=== PATIENT | male | born 1960 | race Caucasian/White ===

== ENCOUNTER 2017-01-01 11:38 | Emergency (ER) | payer SELFPAY ==
[~2017-01-01] VITALS: Ht 180.3 cm; Wt 98.4 kg
[~2017-01-01 11:38] MED LIST: AMLO5TAB2 PO; ASPI325T11 PO; CARV6.25 PO; CITA40TA12 PO; CLOP75TA57 PO; CRESTOR40 MG PO; GABA-585 PO; GLIM2TAB PO; ISOS120T2 PO; ISOS60TA PO; LEVO150T PO; LIRA0.6P SQ; LISI-334 PO; MAGN400T22 PO; METF10002 PO; METO25TA4 PO; NITR0.4T SL; OMEG1CAP6 PO; OXYC5CAP PO; PANT40GR PO; RANO10002 PO; SIMV20TA3 PO
--- NOTE | 2017-01-01 12:41 | RAD ---
Indication: Left-sided weakness. Technique: Noncontrast CT head was obtained. Comparison is from January 15, 2016. One or more of the following individualized dose reduction techniques were utilized for this examination: 1. Automated exposure control 2. Adjustment of the mA and/or kV according to patient size 3. Use of iterative reconstruction technique Findings: The ventricles and sulci are within normal limits for age. There is no acute intracranial hemorrhage or extra-axial fluid collection. There is no mass effect or midline shift. Farfan-white differentiation is preserved. Orbital contents are unremarkable. The paranasal sinuses and mastoid air cells are clear. Calvarium is mottled. This is similar to prior. Impression: No acute intracranial findings.
--- NOTE | 2017-01-01 12:48 | EKG ---
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
[2017-01-01 12:49] LABS: BASO % 1 % (0-3); EOS # 0.1 x10^3/uL (0.0-0.7); EOS % 2 % (0-3); HEMOGLOBIN 14.7 g/dL (13.0-17.5); LYMPH # 1.6 x10^3/uL (1.0-4.8); LYMPH % 29 % (24-48); MEAN CORPUSCULAR HEMOGLOBIN 29 pg (25-35); MEAN CORPUSCULAR HGB CONC 33 g/dL (31-37); MEAN CORPUSCULAR VOLUME 87 fL (79-100); MONO # 0.5 x10^3/uL (0.0-1.1); MONO % 9 % (0-9); NEUT # 3.4 x10^3uL (1.8-7.7); NEUT % 61 % (31-73); PLATELET COUNT 220 x10^3/uL (140-400); RED BLOOD COUNT 5.06 x10^6/uL (4.30-5.70); RED CELL DISTRIBUTION WIDTH 14.6 % (11.5-14.5); WHITE BLOOD COUNT 5.7 x10^3/uL (4.0-11.0)
[2017-01-01 12:57] LABS: ALBUMIN 3.4 g/dL (3.4-5.0); CALCIUM 9.1 mg/dL (8.5-10.1); CREATININE 1.3 mg/dL (0.7-1.3); GFR 57.3; POTASSIUM 4.4 mmol/L (3.5-5.1); TOTAL BILIRUBIN 0.4 mg/dL (0.2-1.0); TOTAL PROTEIN 6.9 g/dL (6.4-8.2)
--- NOTE | 2017-01-01 13:42 | PHYS DOC ---
Past History Past Medical History: CAD, Diabetes, GERD, High Cholesterol, Hypertension, Kidney Stones, Migraines, TIA, Other Past Surgical History: Other Smoking: Non-smoker Alcohol Use: Occasionally Drug Use: None Adult General Chief Complaint Chief Complaint: balance problem HPI HPI Patient is a 56-year-old male brought to the ED by family members with a complaint of balance problems since he woke up this morning at about 10:00. Patient states that he got home from work last night at about 11. He felt fine. He went to bed and went to sleep. At about 3 AM, he woke up with a bad headache. He went and took 3 ibuprofen. At that time he recalls feeling that may be his balance was off, felt like he maybe had some trouble walking. He was very tired and had a headache so he just took the ibuprofen and went back to bed. He woke up at about 10:00 this morning and said that his headache was gone but when he came into the kitchen he was stumbling, he was very off balance, he was having a hard time walking, according to his . He describes his symptoms as "stumbling" and feels like his "coordination is off". Patient had a TIA in the past but has never had a stroke. Patient takes aspirin 325 and also Plavix daily. He did take them today. PCP Dr. Dickey, who recently retired, see someone else in the office. He sees cardiology at [facility] cardiology. Review of Systems Review of Systems Constitutional: Denies fever or chills [] Eyes: Denies change in visual acuity, redness, or eye pain [] HENT: Denies nasal congestion or sore throat [] Respiratory: Denies cough or shortness of breath [] Cardiovascular: Denies chest pain GI: Denies abdominal pain, nausea, vomiting, bloody stools or diarrhea [] : Denies dysuria or hematuria [] Musculoskeletal: Denies back pain or joint pain [] Integument: Denies rash or skin lesions [] Neurologic: As in history of present illness Current Medications Current Medications Current Medications Medications (Trade) Dose Ordered Sig/Manuel Start Time Stop Time Status Last Admin Dose Admin Acetaminophen (Tylenol) 1,000 mg 1X ONCE 01/01/17 14:00 01/01/17 14:01 Allergies Allergies Allergies Coded Allergies Type Severity Reaction Last Updated Verified No Known Drug Allergies 01/21/14 No Physical Exam Physical Exam Constitutional: Well developed, well nourished, no acute distress, non-toxic appearance. Alert, mentating normally, normal speech. HENT: Normocephalic, atraumatic, bilateral external ears normal, oropharynx moist, no oral exudates, nose normal. [] Eyes: PERRLA, EOMI, conjunctiva normal, no discharge. [] Neck: Normal range of motion, no stridor. [] Cardiovascular:Heart rate regular rhythm, no murmur [] Lungs & Thorax: Bilateral breath sounds clear to auscultation [] Abdomen: Bowel sounds normal, soft, no tenderness, no masses, no pulsatile masses. [] Skin: Warm, dry, no erythema, no rash. [] Extremities: No tenderness, no cyanosis, no clubbing, ROM intact, no edema. [] Neurologic: Alert and oriented X 3, normal speech, no pronator drift of upper extremities, right leg is weak, he is able to very briefly, slightly lift it off the bed but not hold it up for 5 seconds. There is slight ataxia with finger -to-nose nose on the right, normal on the left. Left upper and lower extremity strength is normal. Psychologic: Affect normal, judgement normal, mood normal. [] Current Patient Data Lab Results Laboratory Tests Test 01/01/17 11:58 White Blood Count 5.7 x10^3/uL (4.0-11.0) Red Blood Count 5.06 x10^6/uL (4.30-5.70) Hemoglobin 14.7 g/dL (13.0-17.5) Hematocrit 44.0 % (39.0-53.0) Mean Corpuscular Volume 87 fL (79-100) Mean Corpuscular Hemoglobin 29 pg (25-35) Mean Corpuscular Hemoglobin Concent 33 g/dL (31-37) Red Cell Distribution Width 14.6 % (11.5-14.5) H Platelet Count 220 x10^3/uL (140-400) Neutrophils (%) (Auto) 61 % (31-73) Lymphocytes (%) (Auto) 29 % (24-48) Monocytes (%) (Auto) 9 % (0-9) Eosinophils (%) (Auto) 2 % (0-3) Basophils (%) (Auto) 1 % (0-3) Neutrophils # (Auto) 3.4 x10^3uL (1.8-7.7) Lymphocytes # (Auto) 1.6 x10^3/uL (1.0-4.8) Monocytes # (Auto) 0.5 x10^3/uL (0.0-1.1) Eosinophils # (Auto) 0.1 x10^3/uL (0.0-0.7) Basophils # (Auto) 0.0 x10^3/uL (0.0-0.2) Prothrombin Time 9.9 SEC (9.4-11.4) Prothrombin Time INR 1.0 (0.9-1.1) PTT 26 SEC (23-33) Sodium Level 135 mmol/L (136-145) L Potassium Level 4.4 mmol/L (3.5-5.1) Chloride Level 98 mmol/L (98-107) Carbon Dioxide Level 28 mmol/L (21-32) Anion Gap 9 (6-14) Blood Urea Nitrogen 15 mg/dL (8-26) Creatinine 1.3 mg/dL (0.7-1.3) Estimated GFR (Cockcroft-Gault) 57.3 BUN/Creatinine Ratio 12 (6-20) Glucose Level 308 mg/dL (70-99) H Calcium Level 9.1 mg/dL (8.5-10.1) Total Bilirubin 0.4 mg/dL (0.2-1.0) Aspartate Amino Transferase (AST) 12 U/L (15-37) L Alanine Aminotransferase (ALT) 21 U/L (16-63) Alkaline Phosphatase 117 U/L (46-116) H Troponin I Quantitative < 0.017 ng/mL (0-0.055) Total Protein 6.9 g/dL (6.4-8.2) Albumin 3.4 g/dL (3.4-5.0) Albumin/Globulin Ratio 1.0 (1.0-1.7) EKG EKG 12-lead EKG read by me. Sinus rhythm. Heart rate 59. There are no acute ST or T wave changes indicative of ischemia or infarction. No rhythm disturbance. No STEMI. 1250 [] Radiology/Procedures Radiology/Procedures CT scan of the head read by the radiologist. No acute findings. [] Course & Med Decision Making Course & Med Decision Making Pertinent Labs and Imaging studies reviewed. (See chart for details) 56-year-old man with a history of a TIA presents after waking up at 10:00 with right side of the body weakness and ataxia. I discussed with him and family that we will get some labs, EKG, CT scan, they're agreeable to that. CT scan negative for acute finding, consistent with acute CVA occurring by history before 10 AM. 1345 recheck of patient. He states his symptoms are unchanged. His right leg weakness is unchanged on exam. He remains alert, normal speech, mentating normally. He says he does have a little headache and would like something for it. I discussed the diagnosis of CVA with the patient and family and recommended hospitalization. They're agreeable to that. I discussed the case with Dr. Krishna, hospital medicine at [facility]. He will accept the patient in transfer. I completed transfer paperwork and the patient will be transferred via EMS to [place]. The patient is not a candidate for TPA or any other acute intervention, because the onset of symptoms is unknown. The patient woke up at 10:00 with his symptoms present. By history, they may have started as early as 3 AM, see history of present illness. I discussed with the patient and his family the fact that he is not a candidate for TPA or other thrombolytic intervention because of the uncertain time frame, they understand. [] Dragon Disclaimer Dragon Disclaimer This chart was dictated in whole or in part using Voice Recognition software in a busy, high-work load, and often noisy Emergency Department environment. It may contain unintended and wholly unrecognized errors or omissions. Departure Departure: Impression: Primary Impression: CVA (cerebral vascular accident) Disposition: 02 XFER SHT-TRM HOSP Condition: STABLE Referrals: JUDSON DICKEY MD (PCP) MICHAEL CHACKO MD January 01, 2017 13:42
[2017-01-01] MEDS ORDERED: ACETAMINOPHEN 500 MG TABLET PO ONE (14:00)
[2017-01-01 14:34] LABS: AMPHETAMINE/METHAMPHETAMINE NEG (NEG); BARBITURATES NEG (NEG); BENZODIAZEPINES NEG (NEG); CANNABINOIDS NEG (NEG); COCAINE NEG (NEG); METHADONE NEG (NEG); OPIATES NEG (NEG); PHENCYCLIDINE NEG (NEG)
[2017-01-01 14:35] LABS: BACTERIA,URINE 0 /HPF (0-FEW); BILIRUBIN,URINE NEG (NEG); CLARITY,URINE CLEAR; COLOR,URINE YELLOW; GLUCOSE,URINE >=1000 mg/dL (NEG); NITRITE,URINE NEG (NEG); RBC,URINE 0 /HPF (0-2); UROBILINOGEN,URINE 0.2 mg/dL (0.2 mg/dL); WBC,URINE 0 /HPF (0-4)
[2017-01-01 15:27] VITALS: BP 151/71
== END 2017-01-01 15:57 | disposition short-term general hospital (02) ==
LOC: ER 11:38
DX: I63.9 Cerebral infarction, unspecified (principal); I10 Essential (primary) hypertension; K21.9 Gastro-esophageal reflux disease without esophagitis; I25.10 Atherosclerotic heart disease of native coronary artery without angina pectoris; E78.00 Pure hypercholesterolemia, unspecified; E11.9 Type 2 diabetes mellitus without complications; Z86.73 Personal history of transient ischemic attack (TIA), and cerebral infarction without residual deficits; Z87.442 Personal history of urinary calculi
CPT/HCPCS: 36415; 70450; 80053; 80305; 81001; 84484; 85027; 85610; 85730; 93005; G0481; 99285-25

== ENCOUNTER 2017-05-02 17:11 | Emergency (ER) | payer BC ==
[~2017-05-02] VITALS: Ht 180.3 cm; Wt 99.8 kg
--- NOTE | 2017-05-02 18:04 | RAD ---
CT Head W/O Contrast: History: Right side mouth and facial droop.Left side weakness.dizziness 10 hrs CODE STROKE [id number], Comparison: January 25, 2016 Axial images were obtained without contrast. The basurto and white matter appears normal and symmetrical for the patients age. There is no mass effect, extraaxial fluid collections or hydrocephalus. There is no gross bleed. There is old lacunar infarcts in the left basal ganglia and chavez radiata. There is no focal loss of basurto-white matter distinction to suggest acute ischemia, i.e. stroke. Impression: Old lacunar infarcts on the left were not present previously. No acute findings. These results were called to the emergency room at the time of dictation. PQRS Compliance Statement: One or more of the following individualized dose reduction techniques were utilized for this examination: 1. Automated exposure control 2. Adjustment of the mA and/or kV according to patient size 3. Use of iterative reconstruction technique Electronically signed by: Prashant Wilburn III, MD (05/02/2017 6:01 PM) [facility]
[2017-05-02 18:44] LABS: BASO % 0 % (0-3); EOS # 0.1 x10^3/uL (0.0-0.7); EOS % 1 % (0-3); HEMATOCRIT 42.8 % (39.0-53.0); HEMOGLOBIN 14.8 g/dL (13.0-17.5); LYMPH # 1.9 x10^3/uL (1.0-4.8); LYMPH % 24 % (24-48); MEAN CORPUSCULAR HEMOGLOBIN 31 pg (25-35); MEAN CORPUSCULAR HGB CONC 35 g/dL (31-37); MEAN CORPUSCULAR VOLUME 89 fL (79-100); MONO # 0.7 x10^3/uL (0.0-1.1); MONO % 8 % (0-9); NEUT # 5.5 x10^3uL (1.8-7.7); NEUT % 67 % (31-73); PLATELET COUNT 263 x10^3/uL (140-400); RED CELL DISTRIBUTION WIDTH 13.8 % (11.5-14.5); WHITE BLOOD COUNT 8.2 x10^3/uL (4.0-11.0)
[2017-05-02 18:59] LABS: ALBUMIN 3.6 g/dL (3.4-5.0); CALCIUM 9.2 mg/dL (8.5-10.1); CREATININE 1.2 mg/dL (0.7-1.3); GFR 62.6; POTASSIUM 4.5 mmol/L (3.5-5.1); TOTAL BILIRUBIN 0.4 mg/dL (0.2-1.0); TOTAL PROTEIN 7.3 g/dL (6.4-8.2)
[2017-05-02] MEDS ORDERED: IV NORMAL SALINE 1,000ML 1,000 ML IV SCH (19:12)
[2017-05-02 19:13] LABS: AMPHETAMINE/METHAMPHETAMINE NEG (NEG); BARBITURATES NEG (NEG); BENZODIAZEPINES NEG (NEG); CANNABINOIDS NEG (NEG); COCAINE NEG (NEG); METHADONE NEG (NEG); OPIATES NEG (NEG); PHENCYCLIDINE NEG (NEG)
[2017-05-02] MEDS ORDERED: fentaNYL PF 100 MCG/2 ML VIAL IV ONE (19:30)
[2017-05-02 19:40] LABS: BACTERIA,URINE 0 /HPF (0-FEW); BILIRUBIN,URINE NEG (NEG); CLARITY,URINE CLEAR; COLOR,URINE YELLOW; GLUCOSE,URINE NEG (NEG); NITRITE,URINE NEG (NEG); SQUAMOUS EPITHELIAL CELL,UR FEW /LPF; UROBILINOGEN,URINE 0.2 mg/dL (0.2 mg/dL)
[2017-05-02 20:13] LABS: SEDIMENTATION RATE 15 (0-15)
[2017-05-02 20:17] VITALS: BP 130/74
--- NOTE | 2017-05-02 20:27 | PHYS DOC ---
General Chief Complaint: HEADACHE Stated Complaint: HEADACHE Time Seen by MD: 18:05 Source: patient Exam Limitations: no limitations Problems: History of Present Illness Initial Comments Patient is a 57-year-old male brought to the ED by family for stroke symptoms. Patient states that since 6:30 this morning he noticed left temporal headache and left-sided facial tingling. He states he had concomitant right arm and leg weakness, patient's family says that the patient's favorite his right leg and left for the past 3 days. Patient has history of CVA in the past last was December 2016. Patient follows with [facility] neurologist Dr. Jones. Patient also follows with today Nancy for cardiology PCP is Dr. Orantes. Patient takes Plavix, he states his right sided weakness symptoms have resolved. Patient states that he has some residual right upper extremity weakness from prior stroke however it is not evident on exam in the emergency department. Stroke scale is negative. ED vitals: 98.3, 72, 16, 165/100, 98% room air Timing/Duration: other (6:30 AM today getting better) Severity: mild Modifying Factors: improves with other Associated Symptoms: headaches, weakness Allergies: Coded Allergies: No Known Drug Allergies (Unverified , 01/21/14) Past Medical History Medical History: other (CVA, TIA, coronary artery disease, hyperlipidemia, diabetes, hypertension) Surgical History: noncontributory, angioplasty Family History Significant Family History: no pertinent family hx Social History Smoker: cigarettes Alcohol: none Drugs: none Review of Systems Constitutional: denies chills, denies diaphoresis, denies fever, denies malaise EENTM: denies eye pain, denies blurred vision, denies ear pain, denies ear discharge, denies nose pain, denies nose congestion, denies throat pain, denies mouth pain Respiratory: denies cough, denies shortness of breath Cardiovascular: denies chest pain, denies palpitations Gastrointestinal: denies abdominal pain, denies nausea, denies vomiting Musculoskeletal: denies back pain, denies joint swelling, denies neck pain Psychiatric/Neurological: see HPI Hematologic/Lymphatic: see HPI Physical Exam General Appearance: no apparent distress, obese Eyes: bilateral eye normal inspection, bilateral eye PERRL, bilateral eye EOMI Ear, Nose, Throat: hearing grossly normal, normal ENT inspection, normal pharynx Neck: non-tender, supple Respiratory: lungs clear, normal breath sounds Cardiovascular: normal peripheral pulses, regular rate, rhythm Gastrointestinal: non tender, soft Back: no CVA tenderness, no vertebral tenderness Extremities: non-tender, normal inspection Neurologic/Psychiatric: no motor/sensory deficits, alert, normal mood/affect, oriented x 3, other (perceived decreased sensory left temporal otherwise neuro exam normal) Skin: normal color, warm/dry Orders, Labs, Meds EKG: Normal sinus rhythm 68 bpm, nonspecific ST-T T changes with contour abnormality no STEMI. Interpreted by Dr. Davison. PATIENT: MANUEL MCNEAL ACCOUNT: [id number] : 1960 LOCATION: ER AGE: 57 SEX: M EXAM STATUS: REG ER ORD. PHYSICIAN: BRADFORD REASON: RIGHT FACIAL DROOPING, LEFT UPPER EXT. WEAKNESS PROCEDURE: CT CODE STROKE HEAD WO CT Head W/O Contrast: History: Right side mouth and facial droop.Left side weakness.dizziness 10 hrs CODE STROKE [id number], Comparison: January 25, 2016 Axial images were obtained without contrast. The basurto and white matter appears normal and symmetrical for the patients age. There is no mass effect, extraaxial fluid collections or hydrocephalus. There is no gross bleed. There is old lacunar infarcts in the left basal ganglia and chavez radiata. There is no focal loss of basurto-white matter distinction to suggest acute ischemia, i.e. stroke. Impression: Old lacunar infarcts on the left were not present previously. No acute findings. These results were called to the emergency room at the time of dictation. PQRS Compliance Statement: One or more of the following individualized dose reduction techniques were utilized for this examination: 1. Automated exposure control 2. Adjustment of the mA and/or kV according to patient size 3. Use of iterative reconstruction technique Electronically signed by: Ezekiel Jain III, MD (05/02/2017 6:01 PM) [facility] DICTATED AND SIGNED BY: EZEKIEL JAIN III, MD DATE: 05/02/17 7495 CC: ALEXANDER; TREY ORANTES MD; AYESHA DAVISON DO ~ D-dimer 0.69 otherwise reassuring labs and urine studies. 2015: Other than the altered sensation of the left temporal patient states his symptoms have completely resolved. He denies any complaints and is requesting discharge home. 2023: I did contact Dr. Pelaez converter skimmer for neurology to discuss the patient. He recommended discharge home and follow-up with Dr. Jones in 1-2 days, return to ED if symptoms return. I discussed this with the patient and he is greatly relieved as he was intending to sign out AMA discharge was recommended. I discussed smoking cessation as well as the treatment plan and close outpatient neurology follow-up patient and family are agreeable. Departure Time of Disposition: 20:25 Disposition: HOME, SELF-CARE Diagnosis: cephalgia, h/o CVA, tobaccoism Condition: IMPROVED Patient Instructions: General Headache Without Cause, [id number], Smokeless Tobacco Use, Transient Ischemic Attack, [id number] Additional Instructions: Stop smoking seek medical assistance if necessary. No driving or operating machinery until follow-up with your doctor. Continue current medications. Follow-up with your neurologist in 1-2 days for recheck. Call tomorrow to schedule next available appointment. Return to the ED with new or changing symptoms. AYESHA DAVISON DO May 02, 2017 20:27
--- NOTE | 2017-05-02 22:11 | EKG ---
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
--- NOTE | 2017-05-03 07:46 | RAD ---
Portable chest, 05/02/2017: History: High blood pressure, weakness Comparison is made to a study from 01/15/2016. The heart size and pulmonary vascularity are normal. No pulmonary infiltrates are seen. There is no evidence of pleural fluid. IMPRESSION: No acute cardiopulmonary abnormality is detected.
== END 2017-05-02 20:40 | disposition home or self-care (01) ==
LOC: ER 17:11
DX: R51 Headache (principal); I25.10 Atherosclerotic heart disease of native coronary artery without angina pectoris; E78.5 Hyperlipidemia, unspecified; E11.9 Type 2 diabetes mellitus without complications; I10 Essential (primary) hypertension; F17.210 Nicotine dependence, cigarettes, uncomplicated; Z98.61 Coronary angioplasty status; Z86.73 Personal history of transient ischemic attack (TIA), and cerebral infarction without residual deficits
CPT/HCPCS: 36415; 70450; 71010; 80053; 80307; 81001; 82550; 83605; 83880; 84484; 85025; 85379; 85610; 85651; 85730; 93005; 96361; 96374; 99285; J3010; G0479; J7030

== ENCOUNTER 2017-09-21 16:37 | Emergency (ER) | payer BC ==
--- NOTE | 2017-09-21 17:11 | EKG ---
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
[2017-09-21] MEDS ORDERED: IV NORMAL SALINE 1,000ML 1,000 ML IV SCH (17:18)
[2017-09-21 17:28] LABS: BASO % 1 % (0-3); EOS # 0.1 x10^3/uL (0.0-0.7); EOS % 2 % (0-3); HEMATOCRIT 40.5 % (39.0-53.0); HEMOGLOBIN 14.1 g/dL (13.0-17.5); LYMPH # 2.1 x10^3/uL (1.0-4.8); LYMPH % 30 % (24-48); MEAN CORPUSCULAR HEMOGLOBIN 30 pg (25-35); MEAN CORPUSCULAR HGB CONC 35 g/dL (31-37); MEAN CORPUSCULAR VOLUME 87 fL (79-100); MONO # 0.6 x10^3/uL (0.0-1.1); MONO % 8 % (0-9); NEUT # 4.3 x10^3uL (1.8-7.7); NEUT % 60 % (31-73); PLATELET COUNT 238 x10^3/uL (140-400); RED BLOOD COUNT 4.69 x10^6/uL (4.30-5.70); RED CELL DISTRIBUTION WIDTH 13.5 % (11.5-14.5); WHITE BLOOD COUNT 7.1 x10^3/uL (4.0-11.0)
[2017-09-21] MEDS ORDERED: ASPIRIN 81 MG TAB.CHEW PO ONE (17:45)
[2017-09-21 17:50] LABS: ALBUMIN 3.3 g/dL (3.4-5.0); ALBUMIN/GLOBULIN RATIO 0.9 (1.0-1.7); CALCIUM 8.8 mg/dL (8.5-10.1); CREATININE 1.2 mg/dL (0.7-1.3); GFR 62.6; MAGNESIUM 1.5 mg/dL (1.8-2.4); POTASSIUM 3.7 mmol/L (3.5-5.1); TOTAL BILIRUBIN 0.2 mg/dL (0.2-1.0); TOTAL PROTEIN 6.8 g/dL (6.4-8.2)
--- NOTE | 2017-09-21 18:05 | PHYS DOC ---
Past History Past Medical History: CAD, CVA, Diabetes, High Cholesterol, Hypertension, Hypothyroid, TIA Past Surgical History: Coronary Bypass Surgery, Other Smoking: Non-smoker Alcohol Use: None Drug Use: None Adult General Chief Complaint Chief Complaint: CHEST PAIN HPI HPI Patient is a 57 year old male who presents with complaint of chest pain. Patient states that his symptoms started approximately 30 minutes prior to arrival. The patient states that he has history coronary artery disease and was recently admitted at [facility] one week ago where he underwent cardiac catheterization and revision of a previous stent. The patient states that his pain is currently 7 out of 10. The patient states that he took 2 nitroglycerin which helped with his pain initially. Patient also took a full strength aspirin prior to arrival. Patient denies any recent fever. Patient states that the pain is left-sided and describes it as "gripping." Patient has had associated nausea and vomiting with his symptoms. Denies abdominal pain. Review of Systems Review of Systems Constitutional: Denies fever or chills [] Eyes: Denies change in visual acuity, redness, or eye pain [] HENT: Denies nasal congestion or sore throat [] Respiratory: Denies cough or shortness of breath [] Cardiovascular: No additional information not addressed in HPI [] GI: Denies abdominal pain, nausea, vomiting, bloody stools or diarrhea [] : Denies dysuria or hematuria [] Musculoskeletal: Denies back pain or joint pain [] Integument: Denies rash or skin lesions [] Neurologic: Denies headache, focal weakness or sensory changes [] Endocrine: Denies polyuria or polydipsia [] All other systems were reviewed and found to be within normal limits, except as documented in this note. Current Medications Current Medications Current Medications Medications (Trade) Dose Ordered Sig/Manuel Start Time Stop Time Status Last Admin Dose Admin Aspirin (Children'S Aspirin) 324 mg 1X ONCE 09/21/17 17:45 09/21/17 17:46 Fentanyl Citrate (Fentanyl 2ml Vial) 50 mcg PRN Q15MIN PRN 09/21/17 17:30 09/22/17 17:29 Sodium Chloride 1,000 ml @ 125 mls/hr Q8H 09/21/17 17:18 09/22/17 01:17 Allergies Allergies Allergies Coded Allergies Type Severity Reaction Last Updated Verified No Known Drug Allergies 01/21/14 No Physical Exam Physical Exam Constitutional: Alert, afebrile, appears in mild to moderate discomfort. [] HENT: Normocephalic, atraumatic, bilateral external ears normal, oropharynx moist, no oral exudates, nose normal. [] Eyes: PERRLA, EOMI, conjunctiva normal, no discharge. [] Neck: Normal range of motion, no tenderness, supple, no stridor. [] Cardiovascular:Heart rate regular rhythm, no murmur [] Lungs & Thorax: Bilateral breath sounds clear to auscultation [] Abdomen: Bowel sounds normal, soft, no tenderness, no masses, no pulsatile masses. [] Skin: Warm, dry, no erythema, no rash. [] Back: No tenderness, no CVA tenderness. [] Extremities: No tenderness, no cyanosis, no clubbing, ROM intact, no edema. [] Neurologic: Alert and oriented X 3, normal motor function, normal sensory function, no focal deficits noted. [] Current Patient Data Vital Signs Vital Signs Date Time Temp Pulse Resp B/P (MAP) Pulse Ox O2 Delivery O2 Flow Rate FiO2 09/21/17 16:37 97.9 64 12 99 Room Air Lab Results Laboratory Tests Test 09/21/17 16:53 White Blood Count 7.1 x10^3/uL Red Blood Count 4.69 x10^6/uL Hemoglobin 14.1 g/dL Hematocrit 40.5 % Mean Corpuscular Volume 87 fL Mean Corpuscular Hemoglobin 30 pg Mean Corpuscular Hemoglobin Concent 35 g/dL Red Cell Distribution Width 13.5 % Platelet Count 238 x10^3/uL Neutrophils (%) (Auto) 60 % Lymphocytes (%) (Auto) 30 % Monocytes (%) (Auto) 8 % Eosinophils (%) (Auto) 2 % Basophils (%) (Auto) 1 % Neutrophils # (Auto) 4.3 x10^3uL Lymphocytes # (Auto) 2.1 x10^3/uL Monocytes # (Auto) 0.6 x10^3/uL Eosinophils # (Auto) 0.1 x10^3/uL Basophils # (Auto) 0.0 x10^3/uL Sodium Level 138 mmol/L Potassium Level 3.7 mmol/L Chloride Level 101 mmol/L Carbon Dioxide Level 26 mmol/L Anion Gap 11 Blood Urea Nitrogen 20 mg/dL Creatinine 1.2 mg/dL Estimated GFR (Cockcroft-Gault) 62.6 BUN/Creatinine Ratio 17 Glucose Level 260 mg/dL Calcium Level 8.8 mg/dL Magnesium Level 1.5 mg/dL Total Bilirubin 0.2 mg/dL Aspartate Amino Transf (AST/SGOT) Pending Alanine Aminotransferase (ALT/SGPT) 25 U/L Alkaline Phosphatase 129 U/L Creatine Kinase 61 U/L Creatine Kinase MB (Mass) 1.0 ng/mL Creatine Kinase MB Relative Index 1.6 % Troponin I Quantitative 1.486 ng/mL VP-Yol-W-Type Natriuretic Peptide 178 pg/mL Total Protein 6.8 g/dL Albumin 3.3 g/dL Albumin/Globulin Ratio 0.9 Current Medications Medications (Trade) Dose Ordered Sig/Manuel Route PRN Reason Start Time Stop Time Status Last Admin Dose Admin Aspirin (Children'S Aspirin) 324 mg 1X ONCE PO 09/21/17 17:45 09/21/17 17:46 DC Fentanyl Citrate (Fentanyl 2ml Vial) 50 mcg PRN Q15MIN PRN IV PAIN GREATER THAN 3/10 09/21/17 17:30 09/22/17 17:29 09/21/17 17:41 Sodium Chloride 1,000 ml @ 125 mls/hr Q8H IV 09/21/17 17:18 09/22/17 01:17 09/21/17 17:39 EKG EKG Interpreted by me: Heart rate 70, sinus rhythm, left axis deviation, no acute ST /T-wave abnormalities present[] Radiology/Procedures Radiology/Procedures One view AP chest x-ray interpreted by me: No tracheal no effusion, normal cardiac silhouette[] Course & Med Decision Making Course & Med Decision Making Pertinent Labs and Imaging studies reviewed. (See chart for details) Patient was given IV fluids and fentanyl for treatment of symptoms. The patient was not given any further aspirin as he took a full strength aspirin prior to arrival. Patient's troponin was found to be elevated though this is likely decreasing from his previous elevated troponin level last week requiring cardiac catheterization. I contacted Dr. Scott of cardiology who recommended that the patient be transferred to [facility] for further evaluation and care. Awaiting call from hospitalist, care of patient signed over to Dr. Wahl at 1827. 1840: Dr. Rodriguez on-call hospitalist at [facility] accepted transfer to [facility] at 1835. Patient informed about plan of care and agreed with plan of transferring to [facility]. Patient stated his pain improved from 8 to 4 and doesn't want more pain medication Dragon Disclaimer Dragon Disclaimer This electronic medical record was generated, in whole or in part, using a voice recognition dictation system. Departure Departure: Impression: Primary Impression: Unstable angina Additional Impression: Coronary artery disease Disposition: XFER SHT-TRM HOSP (at 1835, transfer accepted to [facility] by Dr. Rodriguez) Condition: IMPROVED Referrals: TREY MATTSON MD (PCP) Problem Qualifiers Additional Impression: Coronary artery disease Coronary Disease-Associated Artery/Lesion type: [place] artery [place] vs. transplanted heart: [place] heart Associated angina: with unstable angina Qualified Codes: I25.110 - Atherosclerotic heart disease of [place] coronary artery with unstable angina pectoris SUJATA HOPKINS MD Sep 21, 2017 18:05 NEAL WAHL MD Sep 21, 2017 18:44
[2017-09-21 18:39] LABS: BACTERIA,URINE 0 /HPF (0-FEW); BILIRUBIN,URINE NEG (NEG); CLARITY,URINE CLEAR; COLOR,URINE YELLOW; GLUCOSE,URINE >=1000 mg/dL (NEG); NITRITE,URINE NEG (NEG); SQUAMOUS EPITHELIAL CELL,UR FEW /LPF; UROBILINOGEN,URINE 0.2 mg/dL (0.2 mg/dL); WBC,URINE OCC /HPF (0-4)
[2017-09-21 19:45] VITALS: BP 138/77
--- NOTE | 2017-09-22 07:57 | RAD ---
Portable chest, 09/21/2017: History: Chest pain Comparison is made to a study from 05/02/2017. The heart size and pulmonary vascularity are normal. There are calcified granulomata in the left upper lobe. There is minimal linear scarring or atelectasis in the left base laterally adjacent to a prominent epicardial fat pad. The lungs are otherwise clear. There is no evidence of pleural fluid. IMPRESSION: Minimal linear atelectasis or scarring in the left base.
== END 2017-09-21 19:50 | disposition short-term general hospital (02) ==
LOC: ER 16:37
DX: I25.110 Atherosclerotic heart disease of native coronary artery with unstable angina pectoris (principal); E03.9 Hypothyroidism, unspecified; E11.9 Type 2 diabetes mellitus without complications; E78.00 Pure hypercholesterolemia, unspecified; I10 Essential (primary) hypertension; Z86.73 Personal history of transient ischemic attack (TIA), and cerebral infarction without residual deficits; Z95.1 Presence of aortocoronary bypass graft
CPT/HCPCS: 36415; 71045; 80053; 81001; 82553; 83735; 83880; 84484; 85025; 85610; 85730; 93005; 96361; 96374; 96376; 99285; J3010; J7030

== ENCOUNTER → 2017-10-18 | Outpatient (CLI) | payer BC ==
[2017-09-21 19:45] VITALS: BP 138/77
== END | disposition home or self-care (01) ==
LOC: LAB 12:36
PROVIDERS: ATTEND Nurse Practitioner
DX: I25.10 Atherosclerotic heart disease of native coronary artery without angina pectoris (principal); F17.200 Nicotine dependence, unspecified, uncomplicated
CPT/HCPCS: 36415

== ENCOUNTER → 2017-12-26 | Outpatient (CLI) | payer BC ==
[~2017-12-26] MED LIST changes: -METF10002 PO; +METF10003 PO
[2017-12-26 11:35] LABS: CALCIUM 9.2 mg/dL (8.5-10.1); CREATININE 1.1 mg/dL (0.7-1.3); GFR 69.2; POTASSIUM 4.3 mmol/L (3.5-5.1)
[2017-12-26 11:40] LABS: BASO % 0 % (0-3); EOS # 0.1 x10^3/uL (0.0-0.7); EOS % 1 % (0-3); HEMATOCRIT 42.9 % (39.0-53.0); HEMOGLOBIN 14.3 g/dL (13.0-17.5); LYMPH # 1.6 x10^3/uL (1.0-4.8); LYMPH % 28 % (24-48); MEAN CORPUSCULAR HEMOGLOBIN 29 pg (25-35); MEAN CORPUSCULAR HGB CONC 33 g/dL (31-37); MEAN CORPUSCULAR VOLUME 87 fL (79-100); MONO # 0.5 x10^3/uL (0.0-1.1); MONO % 8 % (0-9); NEUT # 3.6 x10^3uL (1.8-7.7); NEUT % 62 % (31-73); PLATELET COUNT 229 x10^3/uL (140-400); RED BLOOD COUNT 4.95 x10^6/uL (4.30-5.70); RED CELL DISTRIBUTION WIDTH 14.6 % (11.5-14.5); WHITE BLOOD COUNT 5.8 x10^3/uL (4.0-11.0)
== END | disposition home or self-care (01) ==
LOC: LAB 10:27
PROVIDERS: ATTEND Internal Medicine Cardiovascular Disease
DX: I25.10 Atherosclerotic heart disease of native coronary artery without angina pectoris (principal); F17.200 Nicotine dependence, unspecified, uncomplicated
CPT/HCPCS: 36415; 80048; 85025; 85610

== ENCOUNTER 2018-01-10 14:34 | Emergency (ER) | payer BC ==
[~2018-01-10] VITALS: Ht 182.9 cm; Wt 95.3 kg
--- NOTE | 2018-01-10 14:48 | EKG ---
[address] [address] Test Date: 2018-01-10 Test Time: 14:36:48 Pat Name: MANUEL MCNEAL Department: Room: Gender: M Dentist: PAUL : 1960 Requested By: RUI WILLIAM Order Number: [id number] Reading MD: Measurements Intervals [place] Rate: 66 P: 45 DC: 166 QRS: -48 QRSD: 88 T: 37 QT: 380 QTc: 400 Interpretive Statements SINUS RHYTHM ABNORMAL LEFT AXIS DEVIATION QRS(T) CONTOUR ABNORMALITY CONSISTENT WITH INFERIOR INFARCT PROBABLY OLD ABNORMAL ECG RI6.01 No previous ECG available for comparison
[2018-01-10 15:22] LABS: BASO % 0 % (0-3); EOS # 0.1 x10^3/uL (0.0-0.7); EOS % 2 % (0-3); HEMATOCRIT 41.8 % (39.0-53.0); HEMOGLOBIN 14.3 g/dL (13.0-17.5); LYMPH # 1.9 x10^3/uL (1.0-4.8); LYMPH % 29 % (24-48); MEAN CORPUSCULAR HEMOGLOBIN 29 pg (25-35); MEAN CORPUSCULAR HGB CONC 34 g/dL (31-37); MEAN CORPUSCULAR VOLUME 86 fL (79-100); MONO # 0.7 x10^3/uL (0.0-1.1); MONO % 10 % (0-9); NEUT % 59 % (31-73); PLATELET COUNT 218 x10^3/uL (140-400); RED BLOOD COUNT 4.86 x10^6/uL (4.30-5.70); RED CELL DISTRIBUTION WIDTH 14.4 % (11.5-14.5); WHITE BLOOD COUNT 6.7 x10^3/uL (4.0-11.0)
--- NOTE | 2018-01-10 15:24 | RAD ---
Chest, 2 views, 01/10/2018: HISTORY: Chest pain, angina Comparison is made to a study from 09/21/2017. The heart size and pulmonary vascularity are normal. A coronary artery stent and/or calcifications is projected over the left side of the heart. There are granulomatous calcifications in left upper lobe. There is minimal scarring in the left base. No acute infiltrate is seen. There is no evidence of pleural fluid. Moderate hypertrophic spurring is present in the spine. IMPRESSION: 1. Coronary artery disease. 2. No acute abnormality is detected. Electronically signed by: Brendon Quintanilla MD (01/10/2018 3:21 PM) [facility]
[2018-01-10 15:33] LABS: ALBUMIN 3.5 g/dL (3.4-5.0); CALCIUM 9.1 mg/dL (8.5-10.1); CREATININE 1.3 mg/dL (0.7-1.3); GFR 57.1; POTASSIUM 4.8 mmol/L (3.5-5.1); TOTAL BILIRUBIN 0.2 mg/dL (0.2-1.0); TOTAL PROTEIN 6.9 g/dL (6.4-8.2)
--- NOTE | 2018-01-10 15:59 | PHYS DOC ---
Past History Past Medical History: CAD, CVA, Diabetes, Hypothyroid Past Surgical History: Other Smoking: Non-smoker Alcohol Use: None Drug Use: None Adult General Chief Complaint Chief Complaint: CHEST PAIN [facility] 57-year-old male male presents with chest pain one half hours prior to arrival. The patient is a heavy pressure 8 out of 10. He now has pain is 6 out of 10. The patient took 4 nitros at home without relief. He has a history of coronary disease. He has had 7 stents in the past. He recently had a cardiac catheter one week ago. They found 2 vessels that could not be stented. He was also recently hospitalized with blood pressure hours of 200s over 100s. He denies fever or chills. He does have shortness of breath and nausea. No diaphoresis. Review of Systems Review of Systems Constitutional: Denies fever or chills [] Eyes: Denies change in visual acuity, redness, or eye pain [] HENT: Denies nasal congestion or sore throat [] Respiratory: shortness of breath [] Cardiovascular: No additional information not addressed in HPI [] GI: Denies abdominal pain, nausea, vomiting, bloody stools or diarrhea [] : Denies dysuria or hematuria [] Musculoskeletal: Denies back pain or joint pain [] Integument: Denies rash or skin lesions [] Neurologic: Denies headache, focal weakness or sensory changes [] Endocrine: Denies polyuria or polydipsia [] All other systems were reviewed and found to be within normal limits, except as documented in this note. Allergies Allergies Allergies Coded Allergies Type Severity Reaction Last Updated Verified No Known Drug Allergies 09/21/17 No Physical Exam Physical Exam Constitutional: Well developed, well nourished, no acute distress, non-toxic appearance. [] HENT: Normocephalic, atraumatic, bilateral external ears normal, oropharynx moist, no oral exudates, nose normal. [] Eyes: PERRLA, EOMI, conjunctiva normal, no discharge. [] Neck: Normal range of motion, no tenderness, supple, no stridor. [] Cardiovascular:Heart rate regular rhythm, no murmur [] Lungs & Thorax: Bilateral breath sounds clear to auscultation [] Abdomen: Bowel sounds normal, soft, no tenderness, no masses, no pulsatile masses. [] Skin: Warm, dry, no erythema, no rash. [] Back: No tenderness, no CVA tenderness. [] Extremities: No tenderness, no cyanosis, no clubbing, ROM intact, no edema. [] Neurologic: Alert and oriented X 3, normal motor function, normal sensory function, no focal deficits noted. [] Psychologic: Affect normal, judgement normal, mood normal. [] Current Patient Data Vital Signs Vital Signs Date Time Temp Pulse Resp B/P (MAP) Pulse Ox O2 Delivery O2 Flow Rate FiO2 01/10/18 15:44 71 16 143/85 (104) 98 Room Air 01/10/18 14:50 98.1 Lab Results Laboratory Tests Test 01/10/18 15:09 White Blood Count 6.7 x10^3/uL (4.0-11.0) Red Blood Count 4.86 x10^6/uL (4.30-5.70) Hemoglobin 14.3 g/dL (13.0-17.5) Hematocrit 41.8 % (39.0-53.0) Mean Corpuscular Volume 86 fL (79-100) Mean Corpuscular Hemoglobin 29 pg (25-35) Mean Corpuscular Hemoglobin Concent 34 g/dL (31-37) Red Cell Distribution Width 14.4 % (11.5-14.5) Platelet Count 218 x10^3/uL (140-400) Neutrophils (%) (Auto) 59 % (31-73) Lymphocytes (%) (Auto) 29 % (24-48) Monocytes (%) (Auto) 10 % (0-9) H Eosinophils (%) (Auto) 2 % (0-3) Basophils (%) (Auto) 0 % (0-3) Neutrophils # (Auto) 4.0 x10^3uL (1.8-7.7) Lymphocytes # (Auto) 1.9 x10^3/uL (1.0-4.8) Monocytes # (Auto) 0.7 x10^3/uL (0.0-1.1) Eosinophils # (Auto) 0.1 x10^3/uL (0.0-0.7) Basophils # (Auto) 0.0 x10^3/uL (0.0-0.2) Sodium Level 139 mmol/L (136-145) Potassium Level 4.8 mmol/L (3.5-5.1) Chloride Level 104 mmol/L (98-107) Carbon Dioxide Level 27 mmol/L (21-32) Anion Gap 8 (6-14) Blood Urea Nitrogen 22 mg/dL (8-26) Creatinine 1.3 mg/dL (0.7-1.3) Estimated GFR (Cockcroft-Gault) 57.1 BUN/Creatinine Ratio 17 (6-20) Glucose Level 197 mg/dL (70-99) H Calcium Level 9.1 mg/dL (8.5-10.1) Total Bilirubin 0.2 mg/dL (0.2-1.0) Aspartate Amino Transferase (AST) 20 U/L (15-37) Alanine Aminotransferase (ALT) 39 U/L (16-63) Alkaline Phosphatase 145 U/L (46-116) H Troponin I Quantitative < 0.017 ng/mL (0-0.055) Total Protein 6.9 g/dL (6.4-8.2) Albumin 3.5 g/dL (3.4-5.0) Albumin/Globulin Ratio 1.0 (1.0-1.7) EKG EKG Normal sinus rhythm, rate 66, left axis, no ST elevation or depression. Q waves in lead 3 and aVF[] Radiology/Procedures Radiology/Procedures Chest, 2 views, 01/10/2018: HISTORY: Chest pain, angina Comparison is made to a study from 09/21/2017. The heart size and pulmonary vascularity are normal. A coronary artery stent and/or calcifications is projected over the left side of the heart. There are granulomatous calcifications in left upper lobe. There is minimal scarring in the left base. No acute infiltrate is seen. There is no evidence of pleural fluid. Moderate hypertrophic spurring is present in the spine. IMPRESSION: 1. Coronary artery disease. 2. No acute abnormality is detected. Electronically signed by: Brendon Quintanilla MD (01/10/2018 3:21 PM) [facility] CT chest angiogram with intravenous contrast History: Hypertension. Chest pain. Evaluate for dissection. Comparison: CT chest September 22, 2017. Technique: CT angiogram of the chest with attention to the aorta was performed after the administration of intravenous contrast, 75 mL Omnipaque-300. Axial 2-D reconstructions were obtained. Rotating 3-D MIPS were obtained of the chest. Exposure: One or more of the following individualized dose reduction techniques were utilized for this examination: 1. Automated exposure control 2. Adjustment of the mA and/or kV according to patient size 3. Use of iterative reconstruction technique Findings: There is no evidence of aortic dissection. Thoracic aorta has normal caliber. Calcified and noncalcified aortic atherosclerosis is seen. Trachea and mainstem bronchi appear patent. Visualized thyroid appears small, but symmetric. No acute airspace disease is identified. No pneumothorax or pleural effusion is seen. Pulmonary arterial system cannot be assessed as opacification was optimized for the aorta. No mediastinal lymphadenopathy is seen. Heart and pericardium are unremarkable. Coronary artery calcifications are present. Irregular soft tissue pulmonary nodule measuring 7 mm is seen in the right lower lobe (axial image 180). Images of the abdomen demonstrate mild thickening of both adrenal glands, similar to previous study. Impression: 1. No evidence of thoracic aortic aneurysm or dissection. No acute abnormality identified in the chest. 2. 7 mm irregular soft tissue pulmonary nodule in the right lower lobe, unchanged from comparison study. By Fleischner 2017 guidelines, recommend a follow-up chest CT in 6-12 months. Electronically signed by: Ej Clifford MD (01/10/2018 5:20 PM) [facility] [] Course & Med Decision Making Course & Med Decision Making Pertinent Labs and Imaging studies reviewed. (See chart for details) Vision chest x-ray is negative. His labs are negative his troponin is negative. His EKG does not show any elevation or acute findings. Given the patient's history of high blood pressure coupled with his coronary artery disease, I'm concerned for aortic dissection. His pain has not been amenable to nitroglycerin either and it usually works for him. CTA is ordered. CTA is negative for dissection. There is a soft tissue pulmonary nodule that they recommend having follow-up for. It is stable since previous study. The patient's work-up and recent testing are reassuring. His pain is improved at this time. I believe he is stable for discharge. 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 [] Dragon Disclaimer Dragon Disclaimer This electronic medical record was generated, in whole or in part, using a voice recognition dictation system. Departure Departure: Referrals: TREY MATTSON MD (PCP) RUI WILLIAM DO January 10, 2018 15:59
[2018-01-10] MEDS ORDERED: IOHEXOL 300 MG/ML 75 ML VIAL. IV ONE (16:30)
--- NOTE | 2018-01-10 17:24 | RAD ---
CT chest angiogram with intravenous contrast History: Hypertension. Chest pain. Evaluate for dissection. Comparison: CT chest September 22, 2017. Technique: CT angiogram of the chest with attention to the aorta was performed after the administration of intravenous contrast, 75 mL Omnipaque-300. Axial 2-D reconstructions were obtained. Rotating 3-D MIPS were obtained of the chest. Exposure: One or more of the following individualized dose reduction techniques were utilized for this examination: 1. Automated exposure control 2. Adjustment of the mA and/or kV according to patient size 3. Use of iterative reconstruction technique Findings: There is no evidence of aortic dissection. Thoracic aorta has normal caliber. Calcified and noncalcified aortic atherosclerosis is seen. Trachea and mainstem bronchi appear patent. Visualized thyroid appears small, but symmetric. No acute airspace disease is identified. No pneumothorax or pleural effusion is seen. Pulmonary arterial system cannot be assessed as opacification was optimized for the aorta. No mediastinal lymphadenopathy is seen. Heart and pericardium are unremarkable. Coronary artery calcifications are present. Irregular soft tissue pulmonary nodule measuring 7 mm is seen in the right lower lobe (axial image 180). Images of the abdomen demonstrate mild thickening of both adrenal glands, similar to previous study. Impression: 1. No evidence of thoracic aortic aneurysm or dissection. No acute abnormality identified in the chest. 2. 7 mm irregular soft tissue pulmonary nodule in the right lower lobe, unchanged from comparison study. By Fleischner 2017 guidelines, recommend a follow-up chest CT in 6-12 months. Electronically signed by: Ej Clifford MD (01/10/2018 5:20 PM) [facility]
[2018-01-10 17:51] VITALS: BP 128/60
== END 2018-01-10 17:58 | disposition home or self-care (01) ==
LOC: ER 14:34
DX: R07.89 Other chest pain (principal); R06.02 Shortness of breath; R11.0 Nausea; I25.10 Atherosclerotic heart disease of native coronary artery without angina pectoris; E11.9 Type 2 diabetes mellitus without complications; E03.9 Hypothyroidism, unspecified; Z86.73 Personal history of transient ischemic attack (TIA), and cerebral infarction without residual deficits
CPT/HCPCS: 36415; 71046; 71275; 80053; 84484; 85025; 93005; 99285; Q9967

== ENCOUNTER → 2018-01-19 | Outpatient (CLI) | payer BC ==
[2018-01-10 17:51] VITALS: BP 128/60
--- NOTE | 2018-01-19 09:09 | RAD ---
Renal ultrasound with deep Doppler evaluation, 01/19/2018: HISTORY: Hypertension The right kidney measures 11.7 cm in length while the left kidney measures 11.6 cm. A 1 cm simple cyst is noted in the mid right kidney. A single tiny right renal parenchymal calcification is noted. There is minimal renal cortical scarring bilaterally. There is no evidence of hydronephrosis. Duplex evaluation of the main renal arteries was performed including grayscale, color-flow and spectral Doppler analysis. The peak systolic velocity in the right renal artery is 115 cm/s with a renal artery to aortic velocity ratio of 2.3. On the left the peak systolic velocity in the renal artery is 150 cm/s with a renal artery to aortic velocity ratio 3.0. These Doppler findings do not suggest high-grade stenosis. No parvus/tardus phenomena is seen in either main renal artery or the visualized segmental arteries in the kidneys. IMPRESSION: 1. No duplex evidence of significant renal artery stenosis. 2. Small right renal cyst. 3. Minimal bilateral renal cortical scarring. Electronically signed by: Brendon Quintanilla MD (01/19/2018 9:06 AM) [facility]
== END | disposition home or self-care (01) ==
LOC: US 07:29
PROVIDERS: ATTEND Physician Assistant
DX: I10 Essential (primary) hypertension (principal); N28.1 Cyst of kidney, acquired; I25.10 Atherosclerotic heart disease of native coronary artery without angina pectoris; E03.9 Hypothyroidism, unspecified; E11.9 Type 2 diabetes mellitus without complications; F17.200 Nicotine dependence, unspecified, uncomplicated
CPT/HCPCS: 76770; 93975

== ENCOUNTER 2018-02-14 12:27 | Emergency (ER) | payer BC ==
[~2018-02-14] VITALS: Ht 210.8 cm; Wt 100.0 kg
--- NOTE | 2018-02-14 12:51 | PHYS DOC ---
Past History Past Medical History: CAD, CVA, Diabetes, Hypothyroid Past Surgical History: Other Smoking: Non-smoker Alcohol Use: None Drug Use: None Adult General Chief Complaint Chief Complaint: NEURO SYMPTOMS/DEFICITS HPI HPI 57-year-old male presents with sudden onset of left-sided weakness. The patient has a history of CVA with some residual weakness on the right. About an hour ago the patient began to feel like his left side was weak; both his arm and his leg. He developed a headache and blurry vision. He is unsure of his speech is different. He does admit to feeling "foggy and confused". He was feeling fine prior to this episode. He has been eating and drinking normally. He is unsure of his previous strokes were embolic or hemorrhagic. He thinks at least one was embolic from a clot. The patient also has a history of recent [place] involving small vessels. He is complaining of some chest tightness at this time. He has intermittent angina at baseline for which he takes nitroglycerin. Review of Systems Review of Systems Constitutional: Denies fever or chills [] Eyes: blurry vision, Denies redness, or eye pain [] HENT: Denies nasal congestion or sore throat [] Respiratory: Denies cough or shortness of breath [] Cardiovascular: No additional information not addressed in HPI [] GI: Denies abdominal pain, nausea, vomiting, bloody stools or diarrhea [] : Denies dysuria or hematuria [] Musculoskeletal: Denies back pain or joint pain [] Integument: Denies rash or skin lesions [] Neurologic: Left sided weakness [] Endocrine: Denies polyuria or polydipsia [] All other systems were reviewed and found to be within normal limits, except as documented in this note. Allergies Allergies Allergies Coded Allergies Type Severity Reaction Last Updated Verified No Known Drug Allergies 09/21/17 No Physical Exam Physical Exam Constitutional: Well developed, well nourished, no acute distress, non-toxic appearance. [] HENT: Normocephalic, atraumatic, bilateral external ears normal, oropharynx moist, no oral exudates, nose normal. [] Eyes: PERRLA, EOMI, conjunctiva normal, no discharge. [] Neck: Normal range of motion, no tenderness, supple, no stridor. [] Cardiovascular:Heart rate regular rhythm, no murmur [] Lungs & Thorax: Bilateral breath sounds clear to auscultation [] Abdomen: Bowel sounds normal, soft, no tenderness, no masses, no pulsatile masses. [] Skin: Warm, dry, no erythema, no rash. [] Back: No tenderness, no CVA tenderness. [] Extremities: No tenderness, no cyanosis, no clubbing, ROM intact, no edema. [] Neurologic: Alert and oriented X 3, pronator drift on the left, 4/5 left upper extremity and lower extremity strength v right. Speech normal, language normal. Decreased sensation of the skin of the left lower face.[] Psychologic: Affect normal, judgement normal, mood normal. [] EKG EKG Sinus rhythm, rate 62, leftward axis, no ST elevations or depressions, Q waves in lead 3 and aVF.[] Radiology/Procedures Radiology/Procedures [] Impressions: CT scan of the head without contrast 02/14/2018 Clinical History: Strokelike symptoms since earlier today including left-sided weakness and facial droop. Technique: Unenhanced, contiguous, 5 mm axial sections were obtained through the head. One or more of the following individualized dose reduction techniques were utilized for this study: 1. Automated exposure control. 2. Adjustment of the mA and/or kV according to patient size. 3. Use of iterative reconstruction technique. Findings: Comparison study is dated 05/02/2017. There is mild generalized parenchymal atrophy. Areas of decreased attenuation are seen within the periventricular and subcortical white matter of both cerebral hemispheres consistent with areas of small vessel ischemic disease. No acute parenchymal abnormality is seen. No extra-axial fluid collection is noted. No skull fracture is seen. Impression: No acute intracranial abnormality is seen. This result was called to Dr. William at 1301 hours. Electronically signed by: Alphonse Sharp MD (02/14/2018 1:06 PM) [id number] DICTATED AND SIGNED BY: ALPHONSE SHARP MD DATE: 02/14/18 1300 Course & Med Decision Making Course & Med Decision Making Pertinent Labs and Imaging studies reviewed. (See chart for details) On initial rapid evaluation, the patient had pronator drift on the left. He was then immediately taken to CT. His language appears to be intact. Did have some word finding delay, but sentence structures are complete, logical and easy to understand. His family does not state that his voice sounds different. He had obvious decreased strength on the left upper and lower extremity compared to the right. The patient states that his right side is normally slightly weaker than the left due to previous strokes. His NIH stroke scale score was 9. The patient is on Plavix. He has been taking his medications as prescribed. Head CT is negative for hemorrhage. The patient will need further evaluation not available at this facility. We will transfer him to [facility]. I discussed the case with Dr. Rodriguez and he has accepted the patient for transfer. He has requested that I consult Dr. Trent for her opinion. I discussed the case with her and it is inconclusive whether or not the patient is a candidate for TPA. He may still be a candidate. If we transfer the patient at this time, he will still be within the TPA window. She agreed that transfer was reasonable prior to TPA. [] Dragon Disclaimer Dragon Disclaimer This electronic medical record was generated, in whole or in part, using a voice recognition dictation system. Departure Departure: Referrals: TREY MATTSON MD (PCP) RUI WILLIAM DO Feb 14, 2018 12:51
[2018-02-14 13:03] LABS: CALCIUM 8.5 mg/dL (8.5-10.1); GFR 77.3; POTASSIUM 4.1 mmol/L (3.5-5.1)
--- NOTE | 2018-02-14 13:09 | RAD ---
CT scan of the head without contrast 02/14/2018 Clinical History: Strokelike symptoms since earlier today including left-sided weakness and facial droop. Technique: Unenhanced, contiguous, 5 mm axial sections were obtained through the head. One or more of the following individualized dose reduction techniques were utilized for this study: 1. Automated exposure control. 2. Adjustment of the mA and/or kV according to patient size. 3. Use of iterative reconstruction technique. Findings: Comparison study is dated 05/02/2017. There is mild generalized parenchymal atrophy. Areas of decreased attenuation are seen within the periventricular and subcortical white matter of both cerebral hemispheres consistent with areas of small vessel ischemic disease. No acute parenchymal abnormality is seen. No extra-axial fluid collection is noted. No skull fracture is seen. Impression: No acute intracranial abnormality is seen. This result was called to Dr. Aguayo at 1301 hours. Electronically signed by: Alphonse Sharp MD (02/14/2018 1:06 PM) [id number]
[2018-02-14 13:26] VITALS: BP 145/91
--- NOTE | 2018-02-14 14:41 | EKG ---
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
== END 2018-02-14 14:23 | disposition short-term general hospital (02) ==
LOC: ER 12:27
DX: R53.1 Weakness (principal); R51 Headache; H53.8 Other visual disturbances; I25.10 Atherosclerotic heart disease of native coronary artery without angina pectoris; E11.9 Type 2 diabetes mellitus without complications; E03.9 Hypothyroidism, unspecified; Z86.73 Personal history of transient ischemic attack (TIA), and cerebral infarction without residual deficits
CPT/HCPCS: 36415; 70450; 80048; 84484; 85610; 85730; 93005; 99285

== ENCOUNTER → 2018-03-03 | Outpatient (CLI) | payer BC ==
[2018-02-14 13:26] VITALS: BP 145/91
== END | disposition home or self-care (01) ==
LOC: LAB 08:23
PROVIDERS: ATTEND Nurse Practitioner
DX: E78.5 Hyperlipidemia, unspecified (principal); I10 Essential (primary) hypertension; E11.9 Type 2 diabetes mellitus without complications; E78.00 Pure hypercholesterolemia, unspecified; E03.9 Hypothyroidism, unspecified; J44.9 Chronic obstructive pulmonary disease, unspecified; E83.42 Hypomagnesemia; K21.9 Gastro-esophageal reflux disease without esophagitis; E66.9 Obesity, unspecified
CPT/HCPCS: 36415

== ENCOUNTER 2018-04-13 17:57 | Emergency (ER) | payer SELFPAY ==
[~2018-04-13] VITALS: Ht 182.9 cm; Wt 100.0 kg
[~2018-04-13 17:57] MED LIST changes: -AMLO5TAB2 PO; +AMLO5TAB7 PO; -METF10003 PO; +METF10007 PO
--- NOTE | 2018-04-13 18:21 | ED.ADGEN ---
Past History Past Medical History: CAD, CVA, Diabetes, Hypothyroid Past Surgical History: Other Smoking: Non-smoker Alcohol Use: None Drug Use: None Adult General Chief Complaint Chief Complaint Chest Pain HPI HPI Patient has a history of known coronary artery disease status post stents followed by Dr. Srivastava. Patient had onset of substernal chest pain radiating to his left arm and left jaw at 3:00PM this afternoon while watching TV, 7/10 severity. Patient took 3 nitroglycerin sublingual with improvement and was brought to the ED by his . Pain was worse with exertion associated with shortness of breath. Currently, his pain is back up to 7/10 in severity. Review of Systems Review of Systems Constitutional: Denies fever or chills Eyes: Denies change in visual acuity, redness, or eye pain HENT: Denies nasal congestion or sore throat Respiratory: Denies cough or shortness of breath Cardiovascular: with substernal chest pain, no palpitations GI: Denies abdominal pain, nausea, vomiting, bloody stools or diarrhea : Denies dysuria or hematuria Musculoskeletal: Denies back pain or joint pain Integument: Denies rash or skin lesions Neurologic: Denies headache, focal weakness or sensory changes Endocrine: Denies polyuria or polydipsia All other systems were reviewed and found to be within normal limits, except as documented in this note. Current Medications Current Medications Current Medications Medications (Trade) Dose Ordered Sig/Manuel Start Time Stop Time Status Last Admin Dose Admin Iohexol (Omnipaque 300 Mg/ml) 75 ml 1X ONCE 04/13/18 21:00 04/13/18 21:01 DC 04/13/18 21:05 75 ML Morphine Sulfate (Morphine 4mg Syringe) 4 mg 1X ONCE 04/13/18 19:30 04/13/18 19:31 DC 04/13/18 19:35 4 MG Nitroglycerin (Nitro-Bid Oint) 2 inch 1X ONCE 04/13/18 18:30 04/13/18 18:31 DC 04/13/18 18:30 1 INCH Nitroglycerin (Nitrostat) 0.4 mg 1X ONCE 04/13/18 18:30 04/13/18 18:31 DC 04/13/18 18:29 0.4 MG Allergies Allergies Allergies Coded Allergies Type Severity Reaction Last Updated Verified No Known Drug Allergies 09/21/17 No Physical Exam Physical Exam Constitutional: Well developed, well nourished, no acute distress, non-toxic appearance. HENT: Normocephalic, atraumatic, bilateral external ears normal, oropharynx moist, no oral exudates, nose normal. Eyes: PERRLA, EOMI, conjunctiva normal, no discharge. Neck: Normal range of motion, no tenderness, supple, no stridor. Cardiovascular:Heart rate regular rhythm, no murmur Lungs & Thorax: Bilateral breath sounds clear to auscultation Abdomen: Bowel sounds normal, soft, no tenderness, no masses, no pulsatile masses. Skin: Warm, dry, no erythema, no rash. Back: No tenderness, no CVA tenderness. Extremities: No tenderness, no cyanosis, no clubbing, ROM intact, no edema. Neurologic: Alert and oriented X 3, normal motor function, normal sensory function, no focal deficits noted. Psychologic: Affect normal, judgement normal, mood normal. Current Patient Data Vital Signs Vital Signs Date Time Temp Pulse Resp B/P (MAP) Pulse Ox O2 Delivery O2 Flow Rate FiO2 04/13/18 22:39 61 18 137/71 (93) 98 Room Air 04/13/18 18:22 98.1 Lab Results Laboratory Tests Test 04/13/18 18:06 04/13/18 18:24 04/13/18 20:25 04/13/18 21:44 White Blood Count 7.5 x10^3/uL (4.0-11.0) Red Blood Count 4.93 x10^6/uL (4.30-5.70) Hemoglobin 14.3 g/dL (13.0-17.5) Hematocrit 42.1 % (39.0-53.0) Mean Corpuscular Volume 85 fL (79-100) Mean Corpuscular Hemoglobin 29 pg (25-35) Mean Corpuscular Hemoglobin Concent 34 g/dL (31-37) Red Cell Distribution Width 13.6 % (11.5-14.5) Platelet Count 253 x10^3/uL (140-400) Neutrophils (%) (Auto) 65 % (31-73) Lymphocytes (%) (Auto) 25 % (24-48) Monocytes (%) (Auto) 8 % (0-9) Eosinophils (%) (Auto) 1 % (0-3) Basophils (%) (Auto) 1 % (0-3) Neutrophils # (Auto) 4.8 x10^3uL (1.8-7.7) Lymphocytes # (Auto) 1.9 x10^3/uL (1.0-4.8) Monocytes # (Auto) 0.6 x10^3/uL (0.0-1.1) Eosinophils # (Auto) 0.1 x10^3/uL (0.0-0.7) Basophils # (Auto) 0.0 x10^3/uL (0.0-0.2) Sodium Level 139 mmol/L (136-145) Potassium Level 4.6 mmol/L (3.5-5.1) Chloride Level 103 mmol/L (98-107) Carbon Dioxide Level 29 mmol/L (21-32) Anion Gap 7 (6-14) Blood Urea Nitrogen 12 mg/dL (8-26) Creatinine 1.2 mg/dL (0.7-1.3) Estimated GFR (Cockcroft-Gault) 62.4 BUN/Creatinine Ratio 10 (6-20) Glucose Level 241 mg/dL (70-99) H Calcium Level 8.9 mg/dL (8.5-10.1) Total Bilirubin 0.3 mg/dL (0.2-1.0) Aspartate Amino Transferase (AST) 15 U/L (15-37) Alanine Aminotransferase (ALT) 28 U/L (16-63) Alkaline Phosphatase 165 U/L (46-116) H Troponin I Quantitative < 0.017 ng/mL (0-0.055) < 0.017 ng/mL (0-0.055) Total Protein 7.1 g/dL (6.4-8.2) Albumin 3.5 g/dL (3.4-5.0) Albumin/Globulin Ratio 1.0 (1.0-1.7) D-Dimer (Carmela) 0.65 mg/L (0.00-0.50) H Lipase 279 U/L (73-393) Urine Collection Type Unknown Urine Color Kirsty Urine Clarity Clear Urine pH 5.5 Urine Specific [place] 1.025 Urine Protein 30 mg/dl (NEG-TRACE) Urine Glucose (UA) >=1000 mg/dL (NEG) Urine Ketones (Stick) Neg mg/dL (NEG) Urine Blood Trace (NEG) Urine Nitrite Neg (NEG) Urine Bilirubin Neg (NEG) Urine Urobilinogen Dipstick 0.2 mg/dL (0.2 mg/dL) Urine Leukocyte Esterase Neg (NEG) Urine RBC Occ /HPF (0-2) Urine WBC 0 /HPF (0-4) Urine Squamous Epithelial Cells Occ /LPF Urine Bacteria 0 /HPF (0-FEW) EKG EKG 18:08 ECG Normal sinus rhythm at 62 with Q waves in III and aVF and no acute ST-T wave changes 21:50 SB @ 55 with Q waves in III and aVF and no acute ST-T wave changes Radiology/Procedures Radiology/Procedures [address] [address] IMAGING REPORT Signed PATIENT: MANUEL MCNEAL ACCOUNT: [id number] : 1960 LOCATION: ER AGE: 58 SEX: M EXAM STATUS: PRE ER ORD. PHYSICIAN: PRINCE FORD MD REASON: Chest pain today. Hx: event recorder, a-fib PROCEDURE: CHEST AP ONLY PROCEDURE: CHEST AP ONLY CLINICAL INDICATION: Chest pain today. Hx: event recorder, a-fib COMPARISON: None FINDINGS: No pneumothorax identified. Cardiac and mediastinal contours unremarkable. No pulmonary consolidation or acute airspace disease. No acute osseous abnormalities identified. IMPRESSION: No pulmonary consolidation or acute airspace disease. Electronically signed by: Juan Jose Cuevas DO (04/13/2018 6:36 PM) [facility] DICTATED AND SIGNED BY: JUAN JOSE CUEVAS DO DATE: 04/13/18 183 CC: PRINCE FORD MD; TREY MATTSON MD ~ [address] [address] IMAGING REPORT Signed PATIENT: MANUEL MCNEAL ACCOUNT: [id number] : 1960 LOCATION: ER AGE: 58 SEX: M EXAM STATUS: REG ER ORD. PHYSICIAN: PRINCE FORD MD REASON: Chest pain, short of air, elevated d-dimer, eval for dissection PROCEDURE: CT ANGIOGRAPHY CHEST PQRS Compliance statement: One or more of the following individualized dose reduction techniques were utilized for this examination: 1. Automated exposure control. 2. Adjustment of the mA and/or kV according to patient size. 3. Use of iterative reconstruction technique. Indication:Omni 300 75cc: Chest pain, short of air, elevated d-dimer, rule out dissection or PE. Hx: CAD, stents, event monitor in place, PEs TECHNIQUE: CT angiogram of the chest with IV contrast with multiplanar MIP reformats. COMPARISON:None FINDINGS: Diagnostic quality PE study. There are no central, segmental or subsegmental filling defects in the pulmonary arteries. Heart is normal in size. No pericardial or pleural effusion. Coronary artery stents noted. Opacification of aorta is suboptimal evaluation of dissection however no obvious dissection flap is seen. No axillary, mediastinal or hilar adenopathy. Central airways are patent. 8mm lobulated opacity seen in the right lower lobe also seen before on previous study from December 2017. Calcified granuloma seen in the left upper lobe. Visualized sections through the liver, spleen, gallbladder, kidneys, pancreas and adrenals within normal limits. Right adrenal adenoma seen measuring 1.7 cm. No suspicious bony lesion. IMPRESSION: 1. No PE. Suboptimal opacification of the aorta for evaluation of dissection however no obvious dissection flap seen. 2. Stable right lung base lobulated opacity (8 mm), nonspecific. Follow-up CT chest in 6 months recommended. Electronically signed by: Juan Jose Cuevas DO (04/13/2018 9:33 PM) [facility] DICTATED AND SIGNED BY: JUAN JOSE CUEVAS DO DATE: 04/13/182125 CC: PRINCE FORD MD; TREY MATTSON MD ~ Course & Med Decision Making Course & Med Decision Making Emergency department course Patient presents with substernal chest pain into his left arm left arm DDx-coronary syndrome, unstable angina, dissection, CHF, PE Patient was stable and emergency department. Serial ECGs and troponins showed no evidence acute chronic syndrome. Patient was given nitroglycerin with minimal relief of his pain. Patient was given morphine with decrease in his pain to 2/10 severity. Labs were unremarkable. D-dimer was elevated. CT chest showed no PE or evidence of dissection. Patient has a right pulmonary nodule. Patient was given aspirin. 22:[address] 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 Srivastava who agrees admission to [facility]. Dr. Hanna recommends admission to the hospitalist with cardiology consultation. Patient's heart score=6 22:[address] Vicente who accepts admission Final Impression Final Impression Clinical Impression Chest Pain Dragon Disclaimer Dragon Disclaimer This electronic medical record was generated, in whole or in part, using a voice recognition dictation system. Departure Departure: Impression: Primary Impression: Chest pain Disposition: 05 XFER OTHER (Transfer to [facility]: Dr. Vicente accepting) Condition: STABLE PRINCE FORD MD Apr 13, 2018 18:21
[2018-04-13 18:28] LABS: BASO % 1 % (0-3); EOS # 0.1 x10^3/uL (0.0-0.7); EOS % 1 % (0-3); HEMATOCRIT 42.1 % (39.0-53.0); HEMOGLOBIN 14.3 g/dL (13.0-17.5); LYMPH # 1.9 x10^3/uL (1.0-4.8); LYMPH % 25 % (24-48); MEAN CORPUSCULAR HEMOGLOBIN 29 pg (25-35); MEAN CORPUSCULAR HGB CONC 34 g/dL (31-37); MEAN CORPUSCULAR VOLUME 85 fL (79-100); MONO # 0.6 x10^3/uL (0.0-1.1); MONO % 8 % (0-9); NEUT # 4.8 x10^3uL (1.8-7.7); NEUT % 65 % (31-73); PLATELET COUNT 253 x10^3/uL (140-400); RED BLOOD COUNT 4.93 x10^6/uL (4.30-5.70); RED CELL DISTRIBUTION WIDTH 13.6 % (11.5-14.5); WHITE BLOOD COUNT 7.5 x10^3/uL (4.0-11.0)
[2018-04-13] MEDS ORDERED: NITROGLYCERIN OINT 1 GM PACKET. TP ONE (18:30)
[2018-04-13] MEDS ORDERED: NITROGLYCERIN SUBLINGUAL 0.4 MG BOTTLE OF 25. SL ONE (18:30)
--- NOTE | 2018-04-13 18:40 | RAD ---
PROCEDURE: CHEST AP ONLY CLINICAL INDICATION: Chest pain today. Hx: event recorder, a-fib COMPARISON: None FINDINGS: No pneumothorax identified. Cardiac and mediastinal contours unremarkable. No pulmonary consolidation or acute airspace disease. No acute osseous abnormalities identified. IMPRESSION: No pulmonary consolidation or acute airspace disease. Electronically signed by: Juan Jose Cuevas DO (04/13/2018 6:36 PM) [facility]
[2018-04-13 19:02] LABS: ALBUMIN 3.5 g/dL (3.4-5.0); CALCIUM 8.9 mg/dL (8.5-10.1); CREATININE 1.2 mg/dL (0.7-1.3); GFR 62.4; TOTAL BILIRUBIN 0.3 mg/dL (0.2-1.0); TOTAL PROTEIN 7.1 g/dL (6.4-8.2)
[2018-04-13 19:03] LABS: POTASSIUM 4.6 mmol/L (3.5-5.1)
[2018-04-13] MEDS ORDERED: MORPHINE SULFATE 4 MG/ML DISP.SYRIN. IV ONE (19:30)
[2018-04-13 20:47] LABS: BACTERIA,URINE 0 /HPF (0-FEW); BILIRUBIN,URINE NEG (NEG); CLARITY,URINE CLEAR; COLOR,URINE AMBER; GLUCOSE,URINE >=1000 mg/dL (NEG); NITRITE,URINE NEG (NEG); RBC,URINE OCC /HPF (0-2); SQUAMOUS EPITHELIAL CELL,UR OCC /LPF; UROBILINOGEN,URINE 0.2 mg/dL (0.2 mg/dL); WBC,URINE 0 /HPF (0-4)
[2018-04-13] MEDS ORDERED: IOHEXOL 300 MG/ML 75 ML VIAL. IV ONE (21:00)
--- NOTE | 2018-04-13 21:36 | RAD ---
PQRS Compliance statement: One or more of the following individualized dose reduction techniques were utilized for this examination: 1. Automated exposure control. 2. Adjustment of the mA and/or kV according to patient size. 3. Use of iterative reconstruction technique. Indication:Omni 300 75cc: Chest pain, short of air, elevated d-dimer, rule out dissection or PE. Hx: CAD, stents, event monitor in place, PEs TECHNIQUE: CT angiogram of the chest with IV contrast with multiplanar MIP reformats. COMPARISON:None FINDINGS: Diagnostic quality PE study. There are no central, segmental or subsegmental filling defects in the pulmonary arteries. Heart is normal in size. No pericardial or pleural effusion. Coronary artery stents noted. Opacification of aorta is suboptimal evaluation of dissection however no obvious dissection flap is seen. No axillary, mediastinal or hilar adenopathy. Central airways are patent. 8mm lobulated opacity seen in the right lower lobe also seen before on previous study from December 2017. Calcified granuloma seen in the left upper lobe. Visualized sections through the liver, spleen, gallbladder, kidneys, pancreas and adrenals within normal limits. Right adrenal adenoma seen measuring 1.7 cm. No suspicious bony lesion. IMPRESSION: 1. No PE. Suboptimal opacification of the aorta for evaluation of dissection however no obvious dissection flap seen. 2. Stable right lung base lobulated opacity (8 mm), nonspecific. Follow-up CT chest in 6 months recommended. Electronically signed by: Juan Jose Cuevas DO (04/13/2018 9:33 PM) [facility]
--- NOTE | 2018-04-13 21:50 | EKG ---
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
[2018-04-13 23:10] VITALS: BP 118/77
[2018-04-13] MEDS ORDERED: ASPIRIN 81 MG TAB.CHEW PO ONE (23:15)
--- NOTE | 2018-04-14 00:08 | EKG ---
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
== END 2018-04-13 23:22 | disposition short-term general hospital (02) ==
LOC: ER 17:57
DX: R07.2 Precordial pain (principal); I25.10 Atherosclerotic heart disease of native coronary artery without angina pectoris; E11.9 Type 2 diabetes mellitus without complications; E03.9 Hypothyroidism, unspecified; Z86.73 Personal history of transient ischemic attack (TIA), and cerebral infarction without residual deficits
CPT/HCPCS: 36415; 71045; 71275; 80053; 81001; 83690; 84484; 85025; 85379; 93005; 96374; 99285; J2270; Q9967

== ENCOUNTER 2018-07-02 07:18 | Observation (INO) | payer MEDICAID, OTHER ==
[~2018-07-02] VITALS: Ht 182.9 cm; Wt 95.8 kg
[2018-07-02] MEDS ORDERED: LORazepam 2 MG/ML VIAL IV ONE (07:45)
[2018-07-02 07:54] LABS: BASO % 0 % (0-3); EOS # 0.1 x10^3/uL (0.0-0.7); EOS % 1 % (0-3); HEMATOCRIT 46.6 % (39.0-53.0); HEMOGLOBIN 15.5 g/dL (13.0-17.5); LYMPH # 2.1 x10^3/uL (1.0-4.8); LYMPH % 25 % (24-48); MEAN CORPUSCULAR HEMOGLOBIN 29 pg (25-35); MEAN CORPUSCULAR HGB CONC 33 g/dL (31-37); MEAN CORPUSCULAR VOLUME 87 fL (79-100); MONO # 0.6 x10^3/uL (0.0-1.1); MONO % 7 % (0-9); NEUT # 5.6 x10^3uL (1.8-7.7); NEUT % 67 % (31-73); PLATELET COUNT 264 x10^3/uL (140-400); RED BLOOD COUNT 5.34 x10^6/uL (4.30-5.70); RED CELL DISTRIBUTION WIDTH 14.3 % (11.5-14.5); WHITE BLOOD COUNT 8.4 x10^3/uL (4.0-11.0)
--- NOTE | 2018-07-02 08:00 | RAD ---
EXAM: AP View of the chest DATE: 07/02/2018 7:09 AM INDICATION: chest pain x 1 day, hx of heart disease, stents COMPARISON: 04/13/2018, 01/10/2018 FINDINGS: Cardiac device is seen overlying the left chest. The heart is not enlarged. Mediastinal and hilar contours are stable. No focal parenchymal airspace opacity. No pleural effusion or pneumothorax. IMPRESSION: 1. No radiographic evidence for acute cardiopulmonary process. Electronically signed by: Anibal Zuñiga MD (07/02/2018 7:57 AM) [facility]
[2018-07-02 08:14] LABS: ALBUMIN 3.8 g/dL (3.4-5.0); CALCIUM 9.8 mg/dL (8.5-10.1); CREATININE 1.4 mg/dL (0.7-1.3); GFR 52.2; MAGNESIUM 1.9 mg/dL (1.8-2.4); POTASSIUM 5.5 mmol/L (3.5-5.1); TOTAL BILIRUBIN 0.3 mg/dL (0.2-1.0); TOTAL PROTEIN 7.8 g/dL (6.4-8.2)
[2018-07-02] MEDS ORDERED: ALBUTEROL SULFATE 2.5 MG/3 ML NEBU. CONT NEB ONE (08:30)
[2018-07-02] MEDS ORDERED: ONDANSETRON PF 4 MG/2 ML VIAL. IV ONE (08:30)
[2018-07-02] MEDS ORDERED: MORPHINE SULFATE 4 MG/ML DISP.SYRIN. IV ONE (09:15)
[2018-07-02] MEDS ORDERED: METOCLOPRAMIDE HCL 10 MG/2 ML VIAL. IV ONE (09:15)
--- NOTE | 2018-07-02 09:20 | PHYS DOC ---
Past History Past Medical History: CAD, CVA, Diabetes, High Cholesterol, Hypothyroid Past Surgical History: Other Smoking: Non-smoker Alcohol Use: None Drug Use: None Adult General Chief Complaint Chief Complaint: CHEST PAIN [facility] HPI Patient is a 58 year old male who presents with complaining of chest pain. Patient complaining of nonexertional substernal pressure pain since 0600 constant pain with radiation to his shoulder blade and associated with shortness of breath and nausea and rated his pain 6 or 7/10 patient state he took 324 mg of aspirin and nitroglycerin 3 without change of his pain. 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 Review of Systems Review of Systems Constitutional: Denies fever or chills [] Eyes: Denies change in visual acuity, redness, or eye pain [] HENT: Denies nasal congestion or sore throat [] Respiratory: Denies cough, reports shortness of breath [] Cardiovascular: No additional information not addressed in HPI [] GI: Denies abdominal pain, vomiting, bloody stools or diarrhea, reports nausea [ ] : Denies dysuria or hematuria [] Musculoskeletal: Denies back pain or joint pain [] Integument: Denies rash or skin lesions [] Neurologic: Denies headache, focal weakness or sensory changes [] Endocrine: Denies polyuria or polydipsia [] All other systems were reviewed and found to be within normal limits, except as documented in this note. Current Medications Current Medications Current Medications Medications (Trade) Dose Ordered Sig/Manuel Start Time Stop Time Status Last Admin Dose Admin Albuterol Sulfate (Ventolin) 10 mg 1X ONCE 07/02/18 08:30 07/02/18 08:32 DC 07/02/18 08:43 10 MG Lorazepam (Ativan) 1 mg 1X ONCE 07/02/18 07:45 07/02/18 07:46 DC 07/02/18 08:09 1 MG Ondansetron HCl (Zofran) 4 mg 1X ONCE 07/02/18 08:30 07/02/18 08:32 DC 07/02/18 08:26 4 MG Allergies Allergies Allergies Coded Allergies Type Severity Reaction Last Updated Verified No Known Drug Allergies 09/21/17 No Physical Exam Physical Exam Constitutional: Well developed, well nourished, mild distress, non-toxic appearance. [] HENT: Normocephalic, atraumatic, oropharynx moist, no oral exudates, nose normal. [] Eyes: PERRLA, EOMI, conjunctiva normal, no discharge. [] Neck: Normal range of motion, no tenderness, supple, no stridor. [] Cardiovascular:Heart rate regular rhythm, no murmur [] Lungs & Thorax: Bilateral breath sounds clear to auscultation [] Abdomen: Bowel sounds normal, soft, no tenderness, no masses, no pulsatile masses. [] Skin: Warm, dry, no erythema, no rash. [] Back: No tenderness, no CVA tenderness. [] Extremities: No tenderness, no cyanosis, no clubbing, ROM intact, no edema. [] Neurologic: Alert and oriented X 3, normal motor function, normal sensory function, no focal deficits noted. [] Psychologic: Affect normal, judgement normal, mood normal. [] Current Patient Data Vital Signs Vital Signs Date Time Temp Pulse Resp B/P (MAP) Pulse Ox O2 Delivery O2 Flow Rate FiO2 07/02/18 07:22 60 14 100 Room Air Lab Results Laboratory Tests Test 07/02/18 07:39 White Blood Count 8.4 x10^3/uL (4.0-11.0) Red Blood Count 5.34 x10^6/uL (4.30-5.70) Hemoglobin 15.5 g/dL (13.0-17.5) Hematocrit 46.6 % (39.0-53.0) Mean Corpuscular Volume 87 fL (79-100) Mean Corpuscular Hemoglobin 29 pg (25-35) Mean Corpuscular Hemoglobin Concent 33 g/dL (31-37) Red Cell Distribution Width 14.3 % (11.5-14.5) Platelet Count 264 x10^3/uL (140-400) Neutrophils (%) (Auto) 67 % (31-73) Lymphocytes (%) (Auto) 25 % (24-48) Monocytes (%) (Auto) 7 % (0-9) Eosinophils (%) (Auto) 1 % (0-3) Basophils (%) (Auto) 0 % (0-3) Neutrophils # (Auto) 5.6 x10^3uL (1.8-7.7) Lymphocytes # (Auto) 2.1 x10^3/uL (1.0-4.8) Monocytes # (Auto) 0.6 x10^3/uL (0.0-1.1) Eosinophils # (Auto) 0.1 x10^3/uL (0.0-0.7) Basophils # (Auto) 0.0 x10^3/uL (0.0-0.2) Prothrombin Time 9.3 SEC (9.4-11.4) L Prothrombin Time INR 0.9 (0.9-1.1) Sodium Level 134 mmol/L (136-145) L Potassium Level 5.5 mmol/L (3.5-5.1) H Chloride Level 97 mmol/L (98-107) L Carbon Dioxide Level 28 mmol/L (21-32) Anion Gap 9 (6-14) Blood Urea Nitrogen 22 mg/dL (8-26) Creatinine 1.4 mg/dL (0.7-1.3) H Estimated GFR (Cockcroft-Gault) 52.2 BUN/Creatinine Ratio 16 (6-20) Glucose Level 270 mg/dL (70-99) H Calcium Level 9.8 mg/dL (8.5-10.1) Magnesium Level 1.9 mg/dL (1.8-2.4) Total Bilirubin 0.3 mg/dL (0.2-1.0) Aspartate Amino Transferase (AST) 11 U/L (15-37) L Alanine Aminotransferase (ALT) 23 U/L (16-63) Alkaline Phosphatase 148 U/L (46-116) H Creatine Kinase 28 U/L (39-308) L Troponin I Quantitative < 0.017 ng/mL (0-0.055) JJ-Cjp-Y-Type Natriuretic Peptide 62 pg/mL (0-124) Total Protein 7.8 g/dL (6.4-8.2) Albumin 3.8 g/dL (3.4-5.0) Albumin/Globulin Ratio 1.0 (1.0-1.7) Lipase 205 U/L (73-393) EKG EKG EKG interpreted by me. EKG at 0 722 showed sinus bradycardia at rate of 56, left axis deviation, poor R-wave progress in anteroseptal leads, no acute ST and T-wave changes Radiology/Procedures Radiology/Procedures [address] [address] IMAGING REPORT Signed PATIENT: MANUEL MCNEAL ACCOUNT: [id number] : 1960 LOCATION: ER AGE: 58 SEX: M EXAM STATUS: REG ER ORD. PHYSICIAN: NEAL WAHL MD REASON: chest pain PROCEDURE: PORTABLE CHEST 1V EXAM: AP View of the chest DATE: 07/02/2018 7:09 AM INDICATION: chest pain x 1 day, hx of heart disease, stents COMPARISON: 04/13/2018, 01/10/2018 FINDINGS: Cardiac device is seen overlying the left chest. The heart is not enlarged. Mediastinal and hilar contours are stable. No focal parenchymal airspace opacity. No pleural effusion or pneumothorax. IMPRESSION: 1. No radiographic evidence for acute cardiopulmonary process. Electronically signed by: Anibal Mcgrath MD (07/02/2018 7:57 AM) [facility] DICTATED AND SIGNED BY: ANIBAL MCGRATH MD DATE: 07/02/18 0756 CC: NEAL WAHL MD; TREY MATTSON MD ~ Course & Med Decision Making Course & Med Decision Making Pertinent Labs and Imaging studies reviewed. (See chart for details) Evaluation of patient in ER showed 58-year-old male patient with multiple cardiac risk factor and frequent episodes of chest pain presented with complaining of chest pain. Patient treated with Ativan, ROM, morphine and exam and felt better. Patient had unremarkable EKG and labs except for potassium of 5.5 that was treated with albuterol denies this 10 mg. Blood sugar was more than 200. Dr. Cooper accepted admission at 0915. Dragon Disclaimer Dragon Disclaimer This electronic medical record was generated, in whole or in part, using a voice recognition dictation system. Departure Departure: Impression: Primary Impression: Acute chest pain Additional Impressions: Hyperglycemia Hyperkalemia Renal insufficiency Disposition: ADMITTED INPATIENT (at 0915) Admitting Physician: Britni Cooper (accepted admission at 0915) Condition: IMPROVED Referrals: TREY MATTSON MD (PCP) Problem Qualifiers NEAL WAHL MD Jul 02, 2018 09:20
[2018-07-02 10:34] VITALS: BP 102/68
[2018-07-02] MEDS ORDERED: NITROGLYCERIN SUBLINGUAL 0.4 MG BOTTLE OF 25. SL PRN (12:00)
[2018-07-02] MEDS ORDERED: HEPARIN 25,000UTS/500ML PREMIX 500 ML IV PRN (12:15)
--- NOTE | 2018-07-02 12:43 | HP ---
ADMIT DATE: 07/02/2018 HISTORY OF PRESENT ILLNESS: The patient is a 58-year-old male patient who basically came to the Emergency Room complaining of chest pain that he rated about 9/10 in severity, started there this morning. He took 3 sublingual nitroglycerins without much improvement and he came to the Emergency Room where he was evaluated and was given morphine sulfate as well as albuterol for his slightly elevated potassium of 5.55. On questioning the patient further, he apparently has a small vessel disease and his event marketing representative says that he needs heart transplant. He apparently follows with Dr. Srivastava at [facility] Cardiology team; however, the last time he was admitted to [facility] and one of his stents was clogged and was treated by Dr. Jansen on 09/2017. In the Emergency Room, he was found to have troponin to be slightly leave was normal at 0.017. His EKG showed that he was in sinus bradycardia with a heart rate of 56 with left axis deviation, poor R-wave progression in anteroseptal leads, but no acute ST-T changes and was admitted to rule out myocardial infarction. I consulted the cardiology team. According to the patient, he has chest pain constantly, both exertional and even at rest. He rates his pain around 4-5/10. PAST MEDICAL HISTORY: Significant for coronary artery disease with previous stents to both the left anterior descending and right coronary artery. He did have anterior myocardial infarction in 2016. He is also known to have peripheral vascular disease, status post stenting to his left femoral artery, hypertension, hypercholesterolemia, type 2 diabetes, hypothyroidism. 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 PAST SURGICAL HISTORY: Significant for bilateral carpal tunnel release, right ulnar nerve transposition, left knee arthroscopic surgery, left wrist fracture, status post open reduction and internal fixation. He has also surgery on his left knee because of recurrent avulsion of his posterior tibial tendon and right shoulder arthroscopic surgery. ALLERGIES: He has no known drug allergies. MEDICATIONS: He is on following medications: He is on aspirin 325 mg once a day, Plavix 75 mg once a day, gabapentin 100 mg twice a day, nitroglycerin 0.4 mg every 5 minutes x 3. He is on omega-3 fatty acid 2 capsules twice a day, Protonix 40 mg twice a day. He is on carvedilol 6.25 mg twice a day, citalopram hydrobromide for Celexa 40 mg once a day, glimepiride 2 mg twice a day, isosorbide mononitrate 180 mg daily, levothyroxine sodium 150 mcg once a day. He is on Victoza 0.6 mg, he takes 1.2 mg subcutaneous daily, magnesium oxide 400 mg 3 times a day, oxycodone 5 mg 3 times a day, Ranexa 1000 mg p.o. b.i.d. and simvastatin 20 mg at bedtime. FAMILY HISTORY: He has 3 brothers. His older brother at the age of 60 because of motorcycle accident. His second brother has prostate cancer and a younger brother has a INCOMPLETE DICTATION BRAYDEN PATRICK MD DR: JOSE E/eladio JOB#: [id number] / [id number]
[2018-07-02] MEDS ORDERED: oxyCODONE IR 5 MG TABLET PO SCH (14:00)
[2018-07-02] MEDS ORDERED: MAGNESIUM OXIDE 400 MG TABLET PO SCH (14:00)
--- NOTE | 2018-07-02 14:22 | SSS ---
ADMIT DATE: 07/02/2018 HISTORY OF PRESENT ILLNESS: The patient is a 58-year-old male patient who came to the Emergency Room complaining of chest pain that he rated as a 9/10 in severity, started this morning. He took 3 sublingual nitroglycerins without much improvement and came to the Emergency Room where he was evaluated and was given morphine sulfate as well as albuterol for his slightly elevated potassium of 5.5. On questioning the patient further, he apparently has a small vessel disease and his support director say that he needs heart transplant. He apparently follows with Dr. Srivastava at [facility] Cardiology team; however, the last time he was admitted to [facility] as one of his stents was locked and Dr. Jansen replaced that stent in 09/2017. In the Emergency Room, his troponin was 0.017. His EKG showed that he was in sinus bradycardia with a heart rate of 56 and left axis deviation, poor R-wave progression in anteroseptal leads, but no acute ST segment changes and was admitted to rule out myocardial infarction. When I questioned him further, he apparently has had recurrent chest pain, almost daily, aborted on exertion and at rest and by the time I saw him, his pain was still around 4-5/10. I did speak with Dr. Diaz, the support director on-call at [facility] and he recommended starting him on a heparin drip as he is on maximum medical treatment and to transfer him to CV-ICU for further evaluation and possible cardiac catheterization. PAST MEDICAL HISTORY: Significant for coronary artery disease with previous stents to both left anterior descending and right coronary arteries. He in fact has a total of 7 stents in his heart. He has had myocardial infarction in 2016. He also is known to have peripheral vascular disease, status post stenting to his left femoral artery. He is known to have hypertension, hypercholesterolemia, type 2 diabetes, hypothyroidism, has also some CVAs x 2 with residual right lower extremity weakness and has 3 TIAs and vertigo and unsteady gait. PAST SURGICAL HISTORY: Significant for bilateral carpal tunnel release, right ulnar nerve transposition, left knee arthroscopic surgery, left wrist fracture, status post open reduction and internal fixation and bone grafting. He also had surgery to his left knee because of recurrent avulsion of his posterior tibial tendon and right shoulder arthroscopic surgery. ALLERGIES: He has no known drug allergies. MEDICATIONS: He is currently on following medications: He is on aspirin 325 mg once a day, Plavix 75 mg once a day, gabapentin 100 mg twice a day, nitroglycerin 0.4 mg every 5 minutes x 3. He is on omega-3 fatty acid 2 capsules twice a day, Protonix 40 mg twice a day. He is on carvedilol 6.25 mg twice a day, citalopram hydrobromide for Celexa 40 mg once a day, glimepiride 2 mg twice a day, isosorbide mononitrate 180 mg daily, levothyroxine sodium 150 mcg once a day. He is also on Victoza 0.6 mg, he takes 1.2 mg subcutaneously daily, magnesium oxide 400 mg 3 times a day, oxycodone 5 mg 3 times a day, Ranexa 1000 mg twice a day and simvastatin 20 mg at bedtime. FAMILY HISTORY: He has 3 brothers. His older brother at the age of 60 because of motorcycle accident. His second brother of prostate cancer. His younger brother has myocardial infarction. One sister, older, apparently healthy. His father in his 50s because of kidney disease. His mother in her late 70s because of lung cancer. SOCIAL HISTORY: He is , has 1 son of his own and 3 stepchildren. He quit smoking 3 days ago. He smoked 1 pack a day for almost 40 years. He does not drink alcohol or recreational drugs. 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 REVIEW OF SYSTEMS: The patient denied any blurring of vision, cataract, glaucoma or macular degeneration. Denied any earache, tinnitus or sensorineural deafness. Denied any nosebleeds, stuffy nose or postnasal drip. Denied any sore throat, sore tongue, toothache, hoarseness of voice or difficulty swallowing. He did have some nausea and vomiting, but denied any diarrhea or constipation. Denied any hematemesis, melena or hematochezia. Denied any dysuria, frequency or hematuria. Did complain of hesitancy and urgency and nocturia. He did complain of chest pain that he describes as a heavy weight on his chest, rated at about 9/10 in severity, associated with nausea and vomiting in addition to the left shoulder blade. Denied any diaphoresis. Did complain of shortness of breath, but denied any orthopnea or paroxysmal nocturnal dyspnea. Denied any cough, phlegm or hemoptysis. Denied any chills, rigors or fever. PHYSICAL EXAMINATION: GENERAL: On arrival to the Emergency Room, he looked well and was clearly in no apparent respiratory distress. No pallor, jaundice, cyanosis, lymphadenopathy or thyromegaly. No jugular venous distension. No lower limb edema. VITAL SIGNS: His heart rate was 53, blood pressure was 102/68, temperature was 97.4, respiratory rate 20, and oxygen saturation was 92%. HEENT: Showed normocephalic, atraumatic. NECK: Supple. HEART: Showed normal first and second sounds. No gallop, rub or murmur. CHEST: Clear to auscultation. No crepitation or rhonchi. ABDOMEN: Distended, soft, nontender. No guarding or rigidity. No organomegaly. Hernial orifice intact. Bowel sounds normal. NEUROLOGIC: He was awake, alert, responding appropriately. All his cranial nerves are intact. EXTREMITIES: He moves extremities without difficulty, ambulates without assistance or assistive devices. LABORATORY DATA: In the Emergency Room, he has had lab work done, which showed a white cell count of 8400, hemoglobin 15.5, hematocrit 46.6, MCV 87 and platelet count of 264,000 with normal manual differential. His serum sodium was 134, potassium 5.5, chloride 97, bicarbonate 28, anion gap of 9, BUN 22, creatinine 1.4, estimated GFR was 52 mL per minute. His glucose was 170. Calcium was 9.8, magnesium was 1.9. Total bilirubin, AST, ALT were all normal. Alkaline phosphatase slightly elevated. His total CK was 28. He had 2 sets of cardiac enzyme, both of them were less than 0.017. His beta-natriuretic peptide was only 62. His total protein was 7.8, albumin 3.8. Lipase was 105. His prothrombin time was 9.3, INR 0.9. His EKG showed that he was in sinus bradycardia with a heart rate of 56. She has left axis deviation, poor R-wave progression in anteroseptal leads, no acute ST-T changes. ASSESSMENT AND PLAN: The patient was started on a heparin drip with 60 units per kilogram loading dose and 12 units per kilogram continuously. He was who was transferred to [facility] CV-ICU as per Dr. Diaz's recommendation to continue on all his current medication. FINAL DISCHARGE DIAGNOSIS: 1. Unstable angina. 2. Coronary artery disease, status post stenting x 7. He has peripheral vascular disease, status post stenting to his left femoral artery, hypertension, hypercholesterolemia, type 2 diabetes, hypothyroidism, CVA x 2 and TIA x 3. He also unfortunately continued to smoke heavily, quit smoking only 3 days ago. BRAYDEN PATRICK MD DR: JOSE E/eladio JOB#: [id number] / [id number]
[2018-07-02] MEDS ORDERED: GLIMEPIRIDE 2 MG TABLET PO SCH (17:00)
[2018-07-02] MEDS ORDERED: CARVEDILOL 6.25 MG TABLET PO SCH (17:00)
[2018-07-02] MEDS ORDERED: OMEGA-3 FATTY ACIDS/FISH OIL 1,000 MG CAPSULE. PO SCH (21:00)
[2018-07-02] MEDS ORDERED: PANTOPRAZOLE 40 MG TABLET. PO SCH (21:00)
[2018-07-02] MEDS ORDERED: RANOLAZINE 500 MG TAB.ER.12H PO SCH (21:00)
[2018-07-02] MEDS ORDERED: SIMVASTATIN 20 MG TABLET PO SCH (21:00)
[2018-07-02] MEDS ORDERED: GABAPENTIN 100 MG CAPSULE. PO SCH (21:00)
[2018-07-03] MEDS ORDERED: LEVOTHYROXINE 150 MCG TABLET PO SCH (06:00)
[2018-07-03] MEDS ORDERED: LIRAGLUTIDE 1.2 MG SQ SCH (09:00)
[2018-07-03] MEDS ORDERED: ISOSORBIDE MONONITRATE ER 30 MG TAB.ER.24H PO SCH (09:00)
[2018-07-03] MEDS ORDERED: CLOPIDOGREL BISULFATE 75 MG TABLET PO SCH (09:00)
[2018-07-03] MEDS ORDERED: ASPIRIN ENTERIC COATED 325 MG TABLET.DR. PO SCH (09:00)
[2018-07-03] MEDS ORDERED: CITALOPRAM 20 MG TABLET. PO SCH (09:00)
--- NOTE | 2018-07-05 08:23 | EKG ---
[address] [address] Test Date: 2018-07-02 Test Time: 07:23:32 Pat Name: MANUEL MCNEAL Department: Room: Gender: M Form Block Maker: : 1960 Requested By: NEAL WAHL Order Number: [id number] Reading MD: Measurements Intervals [place] Rate: P: MS: QRS: QRSD: T: QT: QTc: Interpretive Statements
== END 2018-07-02 13:07 | disposition short-term general hospital (02) ==
LOC: ER 07:18 → INTOOBSV 09:49 → 1 SOUTH 09:49
PROVIDERS: ADMIT Internal Medicine; ATTEND Internal Medicine
DX: I25.110 Atherosclerotic heart disease of native coronary artery with unstable angina pectoris (principal); E11.65 Type 2 diabetes mellitus with hyperglycemia; E03.9 Hypothyroidism, unspecified; E78.00 Pure hypercholesterolemia, unspecified; E78.5 Hyperlipidemia, unspecified; E87.5 Hyperkalemia; I10 Essential (primary) hypertension; I25.2 Old myocardial infarction; N28.9 Disorder of kidney and ureter, unspecified; Z80.1 Family history of malignant neoplasm of trachea, bronchus and lung; Z80.42 Family history of malignant neoplasm of prostate; Z82.49 Family history of ischemic heart disease and other diseases of the circulatory system; Z86.73 Personal history of transient ischemic attack (TIA), and cerebral infarction without residual deficits; Z87.891 Personal history of nicotine dependence; Z95.5 Presence of coronary angioplasty implant and graft; Z95.820 Peripheral vascular angioplasty status with implants and grafts
CPT/HCPCS: 36415; 71045; 80053; 82550; 83690; 83735; 83880; 84484; 85025; 85610; 93005; 94640; 96374; 96375; 99284; G0378; J2060; J2270; J2405; J2765; J7613; G0379; 99285-25

== ENCOUNTER 2018-10-06 08:45 | Inpatient (IN) | payer OTHER ==
[~2018-10-06] VITALS: Ht 182.9 cm; Wt 104.0 kg
[~2018-10-06 08:45] MED LIST changes: +AMLO5TAB10 PO; -AMLO5TAB7 PO; +ASPI-630 PO; -ISOS120T2 PO; +ISOS120T4 PO; +METO-247 PO
--- NOTE | 2018-10-06 09:13 | RAD ---
PQRS Compliance statement: One or more of the following individualized dose reduction techniques were utilized for this examination: 1. Automated exposure control. 2. Adjustment of the mA and/or kV according to patient size. 3. Use of iterative reconstruction technique. Indication:CODE STROKE. RIGHT SIDE WEAKNESS. BLURRY VISION ONSET 530. HX OF 2 STROKES TECHNIQUE: CT head without IV contrast COMPARISON:02/14/2018 FINDINGS: No pathologic extra-axial or intra-axial fluid collection. The ventricles and basal cisterns are within normal limits. No acute intracranial bleed. 1 cm focus of low attenuation in the right centrum semiovale adjacent to the lateral ventricle, new from previous exam from 02/14/2018. No focal loss of basurto-white differentiation. Orbits within normal limits. No suspicious calvarial lesion. Visualized paranasal sinuses and mastoid air cells are clear. IMPRESSION: 1. No acute intracranial bleed. 2. Most likely a chronic lacunar infarct in the right anterior centrum semiovale. If concern for acute ischemic stroke is high, please consider MRI brain. Findings discussed with Dr. Sánchez on 10/06/2018 at 9:10 A. Electronically signed by: Juan Jose Cuevas DO (10/06/2018 9:11 AM) [id number]
[2018-10-06] MEDS ORDERED: IOHEXOL 300 MG/ML 75 ML VIAL. IV ONE (09:15)
[2018-10-06 09:25] LABS: HEMATOCRIT 39.2 % (39.0-53.0); HEMOGLOBIN 12.8 g/dL (13.0-17.5); RED BLOOD COUNT 4.4 x10^6/uL (4.30-5.70); RED CELL DISTRIBUTION WIDTH 13.9 % (11.5-14.5); WHITE BLOOD COUNT 6.5 x10^3/uL (4.0-11.0)
[2018-10-06 09:30] LABS: CALCIUM 9.6 mg/dL (8.5-10.1); CREATININE 1.6 mg/dL (0.7-1.3); GFR 44.8; POTASSIUM 5.2 mmol/L (3.5-5.1)
--- NOTE | 2018-10-06 09:44 | RAD ---
PROCEDURE: PORTABLE CHEST 1V CLINICAL INDICATION: dizzy COMPARISON: None FINDINGS: No pneumothorax identified. Cardiac and mediastinal contours unremarkable. No pulmonary consolidation or acute airspace disease. No acute osseous abnormalities identified. IMPRESSION: No pulmonary consolidation or acute airspace disease. Electronically signed by: Juan Jose Cuevas DO (10/06/2018 9:41 AM) [id number]
--- NOTE | 2018-10-06 10:00 | RAD ---
Examination: CT angiography head and neck HISTORY: Right-sided weakness, blurry vision COMPARISON: None available technique: Axial CT angiographic images of the head and neck were performed with IV contrast. Coronal and sagittal 3-D MIP reformats are performed Exposure: One or more of the following individualized dose reduction techniques were utilized for this examination: 1. Automated exposure control 2. Adjustment of the mA and/or kV according to patient size 3. Use of iterative reconstruction technique Stenosis calculations for CT, MR, and conventional angiography are based upon measurements of the distal ICA diameter in accordance with the NASCET methodology. Stenosis calculations for carotid ultrasound studies are derived from validated velocity criteria which are known to correlate with the NASCET methodology. FINDINGS: Examination is very limited as it is not enough contrast within the carotid arteries and the vertebral arteries and the intracranial arteries for evaluation. Majority of the contrast is in the venous system. Mild atherosclerotic calcifications identified in the bilateral carotid bulbs, left greater than right. Moderate degenerative changes cervical spine. Moderate degenerative changes cervical spine. The venous dural sinuses patent. Mild atelectasis apical lungs. IMPRESSION: 1. Nondiagnostic exam as there is not enough contrast within the carotid and vertebral arterial system. Electronically signed by: Armani Oneill MD (10/06/2018 9:57 AM) [place] [id number]
--- NOTE | 2018-10-06 10:00 | PHYS DOC ---
Past History Past Medical History: CAD, CVA, Diabetes, High Cholesterol, Hypothyroid, DC Past Surgical History: Other Past Surgical History History of knee surgery, shoulder surgery, sinus surgery, right carpal tunnel release with a ulnar release on the right side as well. He has had bone grafting in his left foot after then removal. He is also had a tendon reattachment in his L foot. Smoking: Non-smoker Alcohol Use: None Drug Use: None Adult General Chief Complaint Chief Complaint: NEURO SYMPTOMS/DEFICITS HPI HPI 58-year-old male presenting to the emergency department today feeling unsteady on his gait and feet with weakness in his lower extremities bilaterally. He is also had intermittent confusion but now feels better. He was last known well at 5:30 this morning. He denies any changes to his speech or vision. He has a history of TIAs in the past and a history of strokes. He denies any arm weakness. He denies facial asymmetry. He denies recent injury to the back head or neck. He denies urinary incontinence or fecal incontinence. He denies perineal paresthesias. Review of systems is negative for chest pain shortness of breath abdominal pain nausea vomiting fevers chills or neck stiffness. All other review of systems is negative unless otherwise noted in history of present illness. ED course: 58-year-old male presenting the emergency department today with weakness in his legs bilaterally. He also feels unsteady on his gait. On arrival he is afebrile with normal blood pressure. On examination he has 4 out of 5 weakness in the left and right lower extremity. Otherwise 5 out of 5 strength in the upper extremities bilaterally. He has a symmetric facial smile without any other cranial nerve abnormalities. Sensation is intact in all extremities. Speech is intact. NIH stroke calculated to be 3. Code stroke was activated at the time of arrival. Head CT shows a chronic lacunar infarct which is new from previous CT. I spoke with Dr. 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 I communicated my neurologic exam and the patient's timeframe and symptoms. I asked his expert opinion about the administration of TPA. He recommends no TPA at this time. CT angiogram pending at this time. Chest x-ray is unremarkable and blood work is unremarkable this time. The time is now 957. CTA unfortunately was nondiagnostic. I have spoken with Dr. Cooper who will accept the patient for admission to the hospital. We will consult Dr. Pelaez our neurologist. The patient was then admitted for further treatment and care. Review of Systems Review of Systems SEE ABOVE. Current Medications Current Medications Current Medications Medications (Trade) Dose Ordered Sig/Manuel Start Time Stop Time Status Last Admin Dose Admin Iohexol (Omnipaque 300 Mg/ml) 75 ml 1X ONCE 10/06/18 09:15 10/06/18 09:16 DC 10/06/18 09:18 75 ML Allergies Allergies Allergies Coded Allergies Type Severity Reaction Last Updated Verified No Known Drug Allergies 09/21/17 No Physical Exam Physical Exam SEE ABOVE Constitutional: Well developed, well nourished, no acute distress, non-toxic appearance. [] HENT: Normocephalic, atraumatic, bilateral external ears normal, oropharynx moist, no oral exudates, nose normal. [] Eyes: PERRLA, EOMI, conjunctiva normal, no discharge. [] Neck: Normal range of motion, no tenderness, supple, no stridor. [] Cardiovascular:Heart rate regular rhythm, no murmur [] Lungs & Thorax: Bilateral breath sounds clear to auscultation [] Abdomen: Bowel sounds normal, soft, no tenderness, no masses, no pulsatile masses. [] Skin: Warm, dry, no erythema, no rash. [] Back: No tenderness, no CVA tenderness. [] Extremities: No tenderness, no cyanosis, no clubbing, ROM intact, no edema. [] Neurologic: Mental status: Awake oriented and alert x3 Cranial nerves: Extraocular movements intact, eyebrows josephine bilaterally, smile symmetric, uvula elevation nl, shoulder shrug intact bilaterally, tongue protrusion normal DTRs: 2+ Sensation: equal and normal in all extremities Strength: as above Psychologic: Affect normal, judgement normal, mood normal. [] Current Patient Data Vital Signs Vital Signs Date Time Temp Pulse Resp B/P (MAP) Pulse Ox O2 Delivery O2 Flow Rate FiO2 10/06/18 09:30 56 18 99 Room Air 10/06/18 09:07 97.4 Lab Results Laboratory Tests Test 10/06/18 08:55 10/06/18 09:05 Glucose (Fingerstick) 329 mg/dL (70-99) H White Blood Count 6.5 x10^3/uL (4.0-11.0) Red Blood Count 4.40 x10^6/uL (4.30-5.70) Hemoglobin 12.8 g/dL (13.0-17.5) L Hematocrit 39.2 % (39.0-53.0) Mean Corpuscular Volume 89 fL (79-100) Mean Corpuscular Hemoglobin 29 pg (25-35) Mean Corpuscular Hemoglobin Concent 33 g/dL (31-37) Red Cell Distribution Width 13.9 % (11.5-14.5) Platelet Count 244 x10^3/uL (140-400) Prothrombin Time 9.6 SEC (9.4-11.4) Prothrombin Time INR 1.0 (0.9-1.1) PTT 26 SEC (23-33) Sodium Level 134 mmol/L (136-145) L Potassium Level 5.2 mmol/L (3.5-5.1) H Chloride Level 97 mmol/L (98-107) L Carbon Dioxide Level 27 mmol/L (21-32) Anion Gap 10 (6-14) Blood Urea Nitrogen 24 mg/dL (8-26) Creatinine 1.6 mg/dL (0.7-1.3) H Estimated GFR (Cockcroft-Gault) 44.8 Glucose Level 315 mg/dL (70-99) H Calcium Level 9.6 mg/dL (8.5-10.1) Troponin I Quantitative < 0.017 ng/mL (0-0.055) EKG EKG EKG reviewed by myself shows sinus rhythm with a mildly bradycardic rate. ST segments congruent. Not suggestive of ACS.[] Radiology/Procedures Radiology/Procedures [] Course & Med Decision Making Course & Med Decision Making Pertinent Labs and Imaging studies reviewed. (See chart for details) [] Dragon Disclaimer Dragon Disclaimer This electronic medical record was generated, in whole or in part, using a voice recognition dictation system. Departure Departure: Impression: Primary Impression: Leg weakness, bilateral Additional Impression: Stroke-like symptoms Disposition: ADMITTED INPATIENT Admitting Physician: Britni Cooper Condition: STABLE Referrals: TREY MATTSON MD (PCP) Problem Qualifiers PETER CHAUDHRY MD Oct 06, 2018 10:00
[2018-10-06] MEDS ORDERED: ONDANSETRON PF 4 MG/2 ML VIAL. IV PRN (10:15)
[2018-10-06] MEDS ORDERED: MORPHINE SULFATE 4 MG/ML DISP.SYRIN. IV PRN (10:30)
[2018-10-06 12:52] VITALS: BP 135/85
[2018-10-06 15:16] VITALS: BP 108/72
[2018-10-06] MEDS: IV NORMAL SALINE 1,000ML 1,000 ML IV SCH (15:59)
[2018-10-06] MEDS ORDERED: ACETAMINOPHEN 325 MG TABLET PO PRN (16:00)
--- NOTE | 2018-10-06 17:58 | HP ---
ADMIT DATE: 10/06/2018 HISTORY OF PRESENT ILLNESS: The patient is a 58-year-old male patient who was actually discharged from this hospital recently and he apparently came back to the Emergency Room this morning complaining of feeling unsteady in his gait and feet with weakness in his lower extremities bilaterally. He has also had intermittent confusion, however, he is back to his normal baseline. He arrived to the Emergency Room, he was last known well at 5:30 this morning. He denied any changes of his speech or vision; did feel dizzy, had a history of TIAs in the past and history of strokes. He denied any arm weakness. He denied any facial symmetry. He denied any recent injury to the back, head or neck. Denied any incontinence of the urine or feces. He denied any perineal paresthesias. When he arrived to the Emergency Room, he was extensively investigated and has had a CT scan of the head, which basically showed no acute intracranial bleed, most likely chronic lacunar infarct in the right anterior centrum semiovale. If concern for acute ischemic stroke is high, please consider MRI of the brain. His chest x-ray was unremarkable, showed no pulmonary consolidation or acute airspace disease. His head and neck angiography showed that examination was very limited as it is not enough contrast within the carotid arteries and vertebral arteries and intracranial arteries for evaluation. Majority of the contrast was in the venous system and he was found to have mild atherosclerotic calcification identified in the bilateral carotid bulbs, left greater than right, moderate degenerative changes of cervical spine. The venous dural sinuses are patent. He has mild atelectasis at the apical lung. The patient was admitted for further evaluation. We will consult Dr. Pelaez and also I will order a carotid Doppler ultrasound if this was not done as well as his lipid profile if it was not done recently. PAST MEDICAL HISTORY: Significant for coronary artery disease with previous stents to both left anterior descending and right coronary arteries. In fact, he has a total of 7 stents in his heart, has also had myocardial infarction in 2016. He is known to have peripheral vascular disease, status post stenting of his left femoral artery, hypertension, hypercholesterolemia, type 2 diabetes and hypothyroidism. He also had a history of cerebrovascular accident x 2 with residual of the right lower extremity weakness and has 3 TIAs and vertigo and unsteady gait. PAST SURGICAL HISTORY: Significant for bilateral carpal tunnel release, right ulnar nerve transposition, left knee arthroscopic surgery, left wrist fracture, status post open reduction and internal fixation and bone grafting. He also has surgery to his left knee because of recurrent avulsion of his posterior tibial tendon and the right shoulder arthroscopic surgery. ALLERGIES: He has no known drug allergies. FAMILY HISTORY: Generally, his family history is positive for premature coronary artery disease. SOCIAL HISTORY: He is and lives with his . He is currently unemployed. He quit smoking. He used to smoke 3-4 cigarettes a day. He denied any alcohol use. He is apparently compliant with his diet and medication. MEDICATIONS: He is currently on following medications: He is on Plavix 75 mg once a day, Ranexa 1000 mg p.o. b.i.d., simvastatin 20 mg at bedtime, omega-3 fatty acids, fish oil, he takes 2 twice a day, isosorbide mononitrate 180 mg once a day, nitroglycerin 0.4 mg sublingually every 5 minutes x 3, metoprolol succinate 100 mg extended release 1 tablet once a day, aspirin 81 mg once a day, oxycodone 5 mg 3 times a day, gabapentin 100 mg twice a day. He is on citalopram hydrobromide 40 mg daily, magnesium oxide 400 mg 3 times a day, Victoza 1.2 mg sublingually subcutaneous daily, glimepiride 2 mg twice a day, levothyroxine sodium 150 mg daily. REVIEW OF SYSTEMS: As per history of present illness. PHYSICAL EXAMINATION: GENERAL: On examining him, after he arrived to the hospital, he was able to get up and sit on the edge of the bed. There was no pallor, jaundice, cyanosis, or thyromegaly. No jugular venous distension. No limb edema. VITAL SIGNS: His heart rate was 48, blood pressure was 135/85, temperature was 98.3, respiratory rate 20, and oxygen saturation was 99%. HEAD, EYES, EARS, NOSE AND THROAT: Showed normocephalic, atraumatic. NECK: Supple. HEART: Showed normal first and second sounds. No gallop, rub or murmur. CHEST: Clear to auscultation. No crepitation or rhonchi. ABDOMEN: Distended, soft, nontender. No guarding or rigidity. No organomegaly. Hernial orifice intact. Bowel sounds normal. NEUROLOGIC: He was awake, alert, responding appropriately. All his cranial nerves are intact. He has residual weakness in the right lower extremity. He has no cerebellar dysfunction; however, the Romberg's test was positive. This clinical exam corresponds with description of his previous admission where he has residual right lower extremity weakness. LABORATORY DATA: Showed white cell count 6500, hemoglobin 12.8, hematocrit 39, MCV 89 and platelet count 244,000. Serum sodium was 134, potassium 5.2, chloride 97, bicarbonate 27, anion gap of 10, BUN 24, creatinine 1.6, estimated GFR was 44 mL per minute. His glucose was 315, calcium was 9.7. His prothrombin time was 9.6, INR of 1, aPTT was 26. PLAN: My plan is to consult Dr. Pelaez. Continue with all his medication, as he is already on Plavix. We will consult Dr. Pelaez to arrange for bilateral Doppler ultrasound. Check his lipid profile. I am not really convinced that he has any change unless he has TIA that has resolved at that time I saw him. BRAYDEN PATRICK MD DR: JOSE E/eladio JOB#: [id number] / [id number]
[2018-10-06 19:30] VITALS: BP 118/74
[2018-10-06] MEDS ORDERED: NITROGLYCERIN SUBLINGUAL 0.4 MG BOTTLE OF 25. SL PRN (20:30)
[2018-10-06] MEDS ORDERED: SIMVASTATIN 20 MG TABLET PO SCH (21:15)
[2018-10-06] MEDS: MAGNESIUM OXIDE 400 MG TABLET PO SCH (21:24)
[2018-10-06] MEDS: OMEGA-3 FATTY ACIDS/FISH OIL 1,000 MG CAPSULE. PO SCH (21:25)
[2018-10-06] MEDS: GABAPENTIN 100 MG CAPSULE. PO SCH (21:25)
[2018-10-06] MEDS: RANOLAZINE 500 MG TAB.ER.12H PO SCH (21:26)
[2018-10-06] MEDS: oxyCODONE IR 5 MG TABLET PO SCH (21:27)
[2018-10-06 23:30] VITALS: BP_SYST 108; BP_SYST 118; BP_DIAS 72; BP_DIAS 74
[2018-10-07] MEDS: IV NORMAL SALINE 1,000ML 1,000 ML IV SCH (04:21)
[2018-10-07 05:54] VITALS: BP 123/75
[2018-10-07] MEDS ORDERED: LEVOTHYROXINE 150 MCG TABLET PO SCH (06:00)
[2018-10-07 06:43] LABS: BASO % 0 % (0-3); EOS # 0.1 x10^3/uL (0.0-0.7); EOS % 2 % (0-3); HEMATOCRIT 37.8 % (39.0-53.0); HEMOGLOBIN 12.3 g/dL (13.0-17.5); LYMPH # 1.2 x10^3/uL (1.0-4.8); LYMPH % 24 % (24-48); MEAN CORPUSCULAR HEMOGLOBIN 29 pg (25-35); MEAN CORPUSCULAR HGB CONC 33 g/dL (31-37); MEAN CORPUSCULAR VOLUME 89 fL (79-100); MONO # 0.5 x10^3/uL (0.0-1.1); MONO % 10 % (0-9); NEUT # 3.2 x10^3uL (1.8-7.7); NEUT % 64 % (31-73); PLATELET COUNT 217 x10^3/uL (140-400); RED BLOOD COUNT 4.26 x10^6/uL (4.30-5.70); RED CELL DISTRIBUTION WIDTH 13.3 % (11.5-14.5)
[2018-10-07 06:47] LABS: CALCIUM 8.5 mg/dL (8.5-10.1); CREATININE 1.3 mg/dL (0.7-1.3); GFR 56.9; POTASSIUM 4.3 mmol/L (3.5-5.1)
[2018-10-07] MEDS ORDERED: ASPIRIN 81 MG TAB.CHEW PO SCH (08:00)
[2018-10-07] MEDS ORDERED: GLIMEPIRIDE 2 MG TABLET PO SCH (08:00)
[2018-10-07] MEDS: OMEGA-3 FATTY ACIDS/FISH OIL 1,000 MG CAPSULE. PO SCH (08:56)
[2018-10-07] MEDS: GABAPENTIN 100 MG CAPSULE. PO SCH (08:57)
[2018-10-07] MEDS: RANOLAZINE 500 MG TAB.ER.12H PO SCH (08:59)
[2018-10-07] MEDS: oxyCODONE IR 5 MG TABLET PO SCH (08:59)
[2018-10-07] MEDS ORDERED: CLOPIDOGREL BISULFATE 75 MG TABLET PO SCH (09:00)
[2018-10-07] MEDS ORDERED: CITALOPRAM 20 MG TABLET. PO SCH (09:00)
[2018-10-07] MEDS ORDERED: LIRAGLUTIDE 1.2 MG SQ SCH (09:00)
[2018-10-07] MEDS ORDERED: METOPROLOL SUCC 24HR ER 50 MG TAB.ER.24H. PO SCH (09:00)
[2018-10-07] MEDS: MAGNESIUM OXIDE 400 MG TABLET PO SCH (09:00)
[2018-10-07] MEDS ORDERED: ISOSORBIDE MONONITRATE ER 30 MG TAB.ER.24H PO SCH (09:00)
--- NOTE | 2018-10-07 09:00 | RAD ---
DOPPLER CAROTID BILAT Clinical Indication: Rt sided weakness prior strokes and tia 4 heart attacks 7 stents. Procedure: Pulsed wave and color-flow duplex imaging was utilized to evaluate the extracranial carotid arteries. Comparison: None. Findings: RIGHT SIDE: Mild atherosclerotic plaque on basurto-scale images. Distal CCA peak systolic velocity 46 cm/sec. ICA peak systolic velocity 40 cm/sec. The right ICA/CCA ratio is 0.9. Flow within the right vertebral artery and right ECA is directed antegrade. LEFT SIDE: Mild atherosclerotic plaque on basurto-scale images. Distal CCA peak systolic velocity 54 cm/sec. ICA peak systolic velocity 47 cm/sec. The left ICA/CCA ratio is 0.9. Flow within the left vertebral artery and left ECA is directed antegrade. Carotid legend: CCA = common carotid artery ICA = internal carotid artery ECA = external carotid artery IMPRESSION: No hemodynamically significant stenosis. Electronically signed by: Juan Jose Cuevas DO (10/07/2018 8:57 AM) [facility]
[2018-10-07] MEDS ORDERED: METF100010 PO (09:07)
[2018-10-07] MEDS ORDERED: metFORMIN 500 MG TABLET PO SCH (09:30)
--- NOTE | 2018-10-07 09:44 | CONS ---
DATE OF CONSULTATION: 10/06/2018 NEUROLOGY CONSULTATION REFERRING PHYSICIAN: Dr. Cooper. REASON FOR CONSULTATION: Rule out stroke versus TIA. HISTORY OF PRESENT ILLNESS: This is a 58-year-old right-handed male, who was admitted to Emergency Room today after he presented with chief complaints of generalized weakness and confusion. According to the patient, he woke up at 5:30 this morning and was confused and disoriented. Lately, he noticed having generalized weakness. The patient is known to have stroke diagnosed in 2018. He was evaluated at [facility] and treated conservatively with physical therapy. The stroke resulted in residual right lower extremity weakness. According to the patient, after arrival to Emergency Room, his confusion has improved, which lasted one hour and his weakness has gradually improved. The patient denies visual disturbances, chest pain, shortness of breath or palpitation. He complains of intermittent headaches confined to the left side and behind the left eye, which is responding to Tylenol and ibuprofen. Currently, the patient denies any medical or neurological complaints. Initial nonenhanced head CT scan revealed no acute intracranial process, but shows chronic lacunar infarct in the right anterior centrum. PAST MEDICAL HISTORY: Significant for coronary artery disease and he has had 7 stents, history of myocardial infarction in 2016; peripheral vascular disease, required left femoral stent placement; hypertension, hyperlipidemia, diabetes mellitus type 2, hypothyroidism, and history of stroke x2 and possible 3 TIAs. PAST SURGICAL HISTORY: Significant for bilateral carpal tunnel release with ulnar nerve translocations at the L4, status post left knee arthroscopic surgery, left wrist fracture, status post right shoulder arthroscopic surgery. FAMILY HISTORY: Positive for coronary artery disease. ALLERGIES: No known drug allergies. SOCIAL HISTORY: The patient is . He smokes 4 cigarettes daily, but he denies alcohol drinking or illicit drug use. CURRENT HOME MEDICATIONS: Tylenol, aspirin 81 mg, Celexa, Plavix, gabapentin, Amaryl, Imdur, levothyroxine, metoprolol, nitroglycerin, oxycodone p.r.n. for pain, Ranexa, and Zocor. ALLERGIES: No known drug allergies. PHYSICAL EXAMINATION: GENERAL: Obese male, not in acute distress. He weighs 229 pounds. VITAL SIGNS: Blood pressure 118/74, respiratory rate 20, pulse is 61, temperature 97.7, and oxygen saturation 96% on room air. HEENT: Normocephalic and atraumatic, otherwise unremarkable. NECK: Supple. Negative for carotid bruit, lymphadenopathy or thyromegaly. LUNGS: Clear to A and P. CARDIOVASCULAR: Regular rate and rhythm, normal S1, S2. There is no S3, S4 or murmur. ABDOMEN: Soft. Bowel sounds positive. EXTREMITIES: Negative for cyanosis, clubbing, pitting edema. NEUROLOGIC: 1. MENTAL STATUS: The patient is alert and oriented x 3. The speech is fluent. There is no language dysfunction. Memory, judgment, and abstract thinking are normal. The patient denies hallucination or delusion. 2. CRANIAL NERVES: Visual sidhu are full. The pupils are reactive to light and accommodation. The extraocular movements are intact. There is no nystagmus. There is no facial motor or sensory deficit. Hearing is intact bilaterally. The palate is elevated symmetrically. Sternocleidomastoid muscles are powerful bilaterally. The patient shrugs his shoulders symmetrically, protrudes his tongue in the midline without fasciculation or atrophy. 3. MOTOR EXAMINATION: No focal muscle bulk was seen. The tone is normal. The strength is 5/5 throughout. 4. SENSORY EXAMINATION: Revealed diminished pinprick and light touch senses in patchy distributions both lower extremities. 5. Deep tendon reflexes were symmetric and active without pathology responses. Gait: The stance is steady. DIAGNOSTIC DATA: Head CT scan as mentioned above in the history of present illness. Head and neck CT angio revealed mild atherosclerotic calcifications in the bilateral carotid bulbs, greater on the left side along with degenerative disk disease of the cervical spine; however, the test was not optimal due to not enough contrast within the carotid arteries and the vertebral arteries. Therefore, carotid Doppler study was requested, and the result is pending. Chest x-ray revealed no evidence of acute cardiopulmonary process. LABORATORY DATA: CBC revealed white blood cells of 6500, hemoglobin 12.8, hematocrit 39.2, and platelet count 244,000. Chemistry revealed sodium of 134, potassium 5.2, chloride 97, CO2 of 27, BUN 24, creatinine 1.6, glucose 315, and calcium 9.6. Coagulation: PT is 9.6, INR 1 and PTT 26. IMPRESSION: 1. Possible transient ischemic attack, presented with intermittent confusion and weakness of the lower extremities - resolved. 2. Multiple medical problems include diabetes mellitus, hypertension, hyperlipidemia, hypothyroidism and coronary artery disease. RECOMMENDATIONS: 1. Continue with current home medications as the patient has Ranexa, baby aspirin along with Plavix. 2. Await for color Doppler study. 3. Physical therapy evaluation. M Joaquin MALIK MD DR: ALEX/eladio JOB#: [id number] / [id number]
[2018-10-07 10:19] LABS: HDLC 28 mg/dL (40-60); TRIGLYCERIDES 444 mg/dL (0-150); VLDLC 88 mg/dL (0-40)
[2018-10-07 11:06] VITALS: BP 126/78
--- NOTE | 2018-10-07 12:00 | DS ---
DATE OF DISCHARGE: 10/07/2018 HISTORY OF PRESENT ILLNESS: The patient is a 58-year-old male patient with multitude of medical problems who presented to the Emergency Room with complaint of generalized weakness and confusion. According to the patient, he woke up at around 5:30 in the morning and was confused and disoriented associated with some generalized weakness. The patient is known to have a stroke diagnosed in 2018. At that time, he was evaluated at [facility] and treated conservatively with physical therapy. His stroke has resulted in residual right lower extremity weakness. According to the patient, after arrival to the Emergency Room, his confusion has improved; however, it lasted about an hour and his weakness has gradually improved. He denied any visual disturbances, chest pain, shortness of breath, tingling or numbness. He was extensively investigated, has had a CT scan of the head as well as head and neck CT angio revealing mild atherosclerotic calcification in the bilateral carotid artery greater on the left than the right with degenerative disk disease. He had also bilateral carotid Doppler that showed no evidence of hemodynamically significant stenosis. He was evaluated by Dr. Pelaez, the neurologist, as well as the physical therapist and he is basically back to his baseline. He was steady with his feet using the walker. We offered him physical therapy as an outpatient, but the patient declined that and as he remained stable a decision was made to discharge him home to continue with all his medication. He is already on Plavix and aspirin as well as statin. PHYSICAL EXAMINATION: GENERAL: When I examined him this morning, he was sitting on the edge of the bed comfortably, in no apparent distress. He was slightly pale, but no jaundice, cyanosis or thyromegaly. No jugular venous distension. No lower limb edema. VITAL SIGNS: His heart rate was 64, blood pressure was 123/75, temperature was 97.9, respiratory rate was 18 and oxygen saturation was 94%.. HEENT: Examination of the head, eyes, ears, nose and throat showed normocephalic, atraumatic. NECK: Supple. HEART: Showed normal first and second heat sounds. No gallop, rub or murmur. CHEST: Clear to auscultation. No crepitation or rhonchi. ABDOMEN: Distended, soft, nontender. No guarding or rigidity. No organomegaly. Hernial orifices are intact. Bowel sounds normal. NEUROLOGIC: He was awake, alert, responding appropriately. All his cranial nerves are intact. EXTREMITIES: He moves all extremities without difficulty. His muscle strength is 5/5 in his the bilateral upper and the left lower extremity. His strength in the right lower extremity was 3/5, which is a residual effect of his previous strokes. LABORATORY DATA: His lab work this morning showed a white cell count 5000, hemoglobin 12, hematocrit 37, MCV 89 and platelet count of 217,000. His chemistry showed a serum sodium 138, potassium 4.3, chloride 101, bicarbonate 29, anion gap of 8, BUN of 16, creatinine 1.3, estimated GFR was 57 mL per minute. His glucose was ____, calcium was 8.5. His serum triglycerides were 444. His total cholesterol was 103 and his LDL cholesterol is not calculated. HDL cholesterol was 28 and the ratio was 3. His prothrombin time was 9.6, INR of 1, aPTT was 26. DISCHARGE MEDICATIONS: He will be discharged. He was discharged to continue on aspirin 81 mg once a day, citalopram hydrobromide (Celexa) 40 mg once a day, Plavix 75 mg once a day, gabapentin 100 mg p.o. b.i.d., glimepiride 2 mg twice a day, isosorbide mononitrate 180 mg daily, levothyroxine sodium 150 mcg once a day, liraglutide (Victoza) 1.2 mg subcutaneously daily. He is on magnesium oxide 400 mg 3 times a day, metformin 1000 mg b.i.d., metoprolol succinate 100 mg daily, nitroglycerin 0.4 mg sublingual as needed for 5 minutes, omega 3 fatty acid 2 capsules twice a day, oxycodone 5 mg 3 times a day, Ranexa 1000 mg twice a day, and simvastatin 20 mg at bedtime. ASSESSMENT: Possible transient ischemic attack. His symptoms have completely resolved. The patient has multiple others, he has previous stroke with residual right-sided lower extremity weakness. Other medical problems include coronary artery disease with previous stents to both left anterior descending and right coronary artery, ____ total of 7 stents to his heart, has myocardial infarction, peripheral vascular disease, status post stenting of his left femoral artery, hypertension, hypercholesterolemia, type 2 diabetes mellitus, hypothyroidism. BRAYDEN PATRICK MD DR: Olivia JOB#: [id number] / [id number]
--- NOTE | 2018-10-09 02:17 | PN ---
DATE: 10/07/2018 SUBJECTIVE: The patient denies any new medical or neurological complaints. He stated his weakness of the lower extremities back to normal baseline. He denies headaches, visual disturbances, nausea, vomiting, chest pain, shortness of breath, palpitations, or headaches. OBJECTIVE: GENERAL: Obese male, not in acute distress. VITAL SIGNS: Blood pressure 126/78, respiratory rate 20, pulse is 63 and regular, temperature 98.1, oxygen saturation 95% on room air. HEENT: Normocephalic, atraumatic, otherwise unremarkable. NECK: Supple. Negative for carotid bruit, lymphadenopathy, or thyromegaly. LUNGS: Clear to A and P. CARDIOVASCULAR: Regular rate and rhythm, normal S1, S2. ABDOMEN: Soft. Bowel sounds positive. EXTREMITIES: Negative for cyanosis, clubbing, or pitting edema. NEUROLOGIC: Normal mental status and intact cranial nerves. There is no focal motor or sensory deficit. Deep tendon reflexes are symmetric and active without pathology responses. Gait: The stance is steady. The patient uses a walker for ambulation as needed. LABORATORY DATA: CBC revealed white cells of ____, hemoglobin 12.3, hematocrit 37.8, platelet count 217,000. Chemistry revealed sodium of 138, potassium 4.6, chloride 101, CO2 29, BUN 18, creatinine 1.3, and glucose 237 with calcium 8.5. Lipid profile revealed abnormal triglyceride 444 with low HDL at 28. DIAGNOSTIC DATA: A carotid Doppler study from today revealed no significant stenosis. IMPRESSION: 1. Possible transient ischemic attack, presented with intermittent confusion and weakness of the lower extremities -- resolved without recurrence. 2. Multiple medical problems include coronary artery disease, required 7 stents, diabetes mellitus, hypertension, hyperlipidemia, and hypothyroidism. RECOMMENDATIONS: We would continue with current medication with Ranexa, baby aspirin, and Plavix. The patient was offered to physical therapy on outpatient, but he declined as his weakness of the lower extremities is improved significantly. M Joaquin MALIK MD DR: ALEX/eladio JOB#: [id number] / [id number]
--- NOTE | 2018-10-09 10:47 | EKG ---
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
== END 2018-10-07 11:30 | disposition home or self-care (01) | DRG 69 ==
LOC: ER 08:45 → 1 SOUTH 10:05
PROVIDERS: ADMIT Internal Medicine; ATTEND Internal Medicine
DX: G45.9 Transient cerebral ischemic attack, unspecified (principal); E03.9 Hypothyroidism, unspecified; E11.51 Type 2 diabetes mellitus with diabetic peripheral angiopathy without gangrene; E78.5 Hyperlipidemia, unspecified; I10 Essential (primary) hypertension; E78.00 Pure hypercholesterolemia, unspecified; F17.210 Nicotine dependence, cigarettes, uncomplicated; I25.10 Atherosclerotic heart disease of native coronary artery without angina pectoris; I25.2 Old myocardial infarction; Z79.899 Other long term (current) drug therapy; I69.341 Monoplegia of lower limb following cerebral infarction affecting right dominant side; Z82.49 Family history of ischemic heart disease and other diseases of the circulatory system; Z95.5 Presence of coronary angioplasty implant and graft; Z95.820 Peripheral vascular angioplasty status with implants and grafts
CPT/HCPCS: 36415; 70450; 70496; 70498; 71045; 80048; 80053; 80061; 82550; 82947; 83690; 83735; 83880; 84484; 85025; 85027; 85610; 85730; 90471; 90756; 93005; 93880; 96365; 96366; 96375; G0378; G0379; J2270; J2405; J3475; Q9967; 92610; 99284-25; 99285-25; J7030; Q2035

== ENCOUNTER → 2018-10-10 | Outpatient (CLI) | payer OTHER ==
[2018-10-07 11:06] VITALS: BP 126/78
[~2018-10-10] MED LIST changes: +METF100010 PO
[2018-10-10 08:57] LABS: ALBUMIN 3.4 g/dL (3.4-5.0); ALBUMIN/GLOBULIN RATIO 0.9 (1.0-1.7); CALCIUM 9.2 mg/dL (8.5-10.1); CREATININE 1.2 mg/dL (0.7-1.3); GFR 62.4; POTASSIUM 4.4 mmol/L (3.5-5.1); TOTAL BILIRUBIN 0.3 mg/dL (0.2-1.0); TOTAL PROTEIN 7.4 g/dL (6.4-8.2)
== END | disposition home or self-care (01) ==
LOC: LAB 07:40
PROVIDERS: ATTEND Nurse Practitioner
DX: I13.10 Hypertensive heart and chronic kidney disease without heart failure, with stage 1 through stage 4 chronic kidney disease, or unspecified chronic kidney disease (principal); E11.22 Type 2 diabetes mellitus with diabetic chronic kidney disease; N18.3 Chronic kidney disease, stage 3 (moderate); E55.9 Vitamin D deficiency, unspecified
CPT/HCPCS: 36415; 80053; 82306

== ENCOUNTER → 2018-10-26 | Outpatient (CLI) | payer OTHER ==
[2018-10-07 11:06] VITALS: BP 126/78
--- NOTE | 2018-10-26 13:32 | RAD ---
EXAM: Chest, 2 views. HISTORY: Congestion. COMPARISON: 10/06/2018. FINDINGS: 2 views of chest are obtained. There is no infiltrate, pleural effusion or pneumothorax. There is a coronary artery stent and cardiac event monitor overlying the left heart. There is linear right infrahilar atelectasis or scarring. There are few calcified granulomas. IMPRESSION: No acute pulmonary finding. Electronically signed by: Olivia Galindo MD (10/26/2018 1:29 PM) [id number]
== END | disposition home or self-care (01) ==
LOC: PMG 10:50
PROVIDERS: ATTEND Family Medicine
DX: R05 Cough (principal); J84.10 Pulmonary fibrosis, unspecified
CPT/HCPCS: 71046

== ENCOUNTER → 2018-10-31 | Outpatient (CLI) | payer OTHER ==
[2018-10-07 11:06] VITALS: BP 126/78
[2018-10-31 15:13] LABS: HDLC 38 mg/dL (40-60); TRIGLYCERIDES 354 mg/dL (0-150); VLDLC 70 mg/dL (0-40)
== END | disposition home or self-care (01) ==
LOC: LAB 08:14
PROVIDERS: ATTEND Nurse Practitioner
DX: E78.5 Hyperlipidemia, unspecified (principal)
CPT/HCPCS: 80061

== ENCOUNTER → 2019-01-18 | Outpatient (CLI) | payer OTHER ==
--- NOTE | 2019-01-18 11:13 | RAD ---
Supine and upright views of the abdomen without comparison for upper and periumbilical abdominal pain. FINDINGS: There is no free air beneath the diaphragm. There is scattered abdominal bowel gas in a nonobstructive nonspecific pattern. Left iliac artery stent is present. Phleboliths are seen in the pelvis. No other pathologic calcifications. No significant osseous abnormalities. IMPRESSION: 1. Nonobstructive nonspecific bowel gas pattern. Electronically signed by: Khoi Ortiz MD (01/18/2019 11:10 AM) [facility]
== END | disposition home or self-care (01) ==
LOC: PMG 09:52
PROVIDERS: ATTEND Physician Assistant
DX: I87.8 Other specified disorders of veins (principal)
CPT/HCPCS: 74021

== ENCOUNTER 2019-05-21 14:46 | Observation (INO) | payer MEDICAID, OTHER ==
[~2019-05-21] VITALS: Ht 182.9 cm; Wt 104.6 kg
[~2019-05-21 14:46] MED LIST changes: -NITR0.4T SL; +NITR0.4T24 SL
--- NOTE | 2019-05-21 15:29 | PHYS DOC ---
Past History Past Medical History: CAD, Diabetes, Hypertension, Hypothyroid, Stroke Past Surgical History: Other Additional Past Surgical Histo: abd hernia repair; carpal tunnel; L wrist ulnar nerve; cardiac stents x7 Smoking: Non-smoker Alcohol Use: None Drug Use: None Adult General Chief Complaint Chief Complaint: CHEST PAIN HPI HPI Patient is a 59-year-old male presents complaining of chest pain. It started th is morning, improved with nitroglycerin. Reoccurred this afternoon while he was at rest, and no significant improvement with nitroglycerin. It radiates into his back as well as his left arm. Similar pain as when he had previous cardiac stents placed. Patient does not walk or exert himself due to previous history of stroke acting his right side. Some nausea, no vomiting or diarrhea. No diaphoresis.[] Review of Systems Review of Systems Constitutional: Denies fever or chills [] Eyes: Denies change in visual acuity, redness, or eye pain [] HENT: Denies nasal congestion or sore throat [] Respiratory: Denies cough or shortness of breath [] Cardiovascular: No additional information not addressed in HPI [] GI: Denies abdominal pain, nausea, vomiting, bloody stools or diarrhea [] : Denies dysuria or hematuria [] Musculoskeletal: Denies back pain or joint pain [] Integument: Denies rash or skin lesions [] Neurologic: Denies headache, focal weakness or sensory changes [] Endocrine: Denies polyuria or polydipsia [] All other systems were reviewed and found to be within normal limits, except as documented in this note. Allergies Allergies Allergies Coded Allergies Type Severity Reaction Last Updated Verified No Known Drug Allergies 05/21/19 No Physical Exam Physical Exam Constitutional: Well developed, well nourished, no acute distress, non-toxic appearance. [] HENT: Normocephalic, atraumatic, bilateral external ears normal, oropharynx moist, no oral exudates, nose normal. [] Eyes: PERRLA, EOMI, conjunctiva normal, no discharge. [] Neck: Normal range of motion, no tenderness, supple, no stridor. [] Cardiovascular:Heart rate regular rhythm, no murmur [] Lungs & Thorax: Bilateral breath sounds clear to auscultation [] Abdomen: Bowel sounds normal, soft, no tenderness, no masses, no pulsatile masses. [] Skin: Warm, dry, no erythema, no rash. [] Back: No tenderness, no CVA tenderness. [] Extremities: No tenderness, no cyanosis, no clubbing, ROM intact, no edema. [] Neurologic: Alert and oriented X 3, normal motor function, normal sensory function, no focal deficits noted. [] Psychologic: Affect normal, judgement normal, mood normal. [] Current Patient Data Vital Signs Vital Signs Date Time Temp Pulse Resp B/P (MAP) Pulse Ox O2 Delivery O2 Flow Rate FiO2 05/21/19 14:53 97.7 62 28 97 Room Air EKG EKG EKG shows a sinus rhythm at 63 bpm, left axis, QTC of 400 ms, no ST elevations. Compared with EKG from 10/06/2018, no acute changes are present.[] Radiology/Procedures Radiology/Procedures PROCEDURE: PORTABLE CHEST 1V EXAM: Chest, single view. HISTORY: Chest pain. COMPARISON: 10/26/2018 FINDINGS: A frontal view of the chest obtained. There is no infiltrate, pleural effusion or pneumothorax. The heart is normal in size. There is a cardiac event monitor overlying the left thorax. There are calcified granulomas. There is a coronary artery stent. IMPRESSION: No acute pulmonary finding.[] Course & Med Decision Making Course & Med Decision Making Pertinent Labs and Imaging studies reviewed. (See chart for details) ED course: Patient arrived, was placed in bed, and tolerated exam well. He was given aspirin and nitroglycerin. IV access was established and samples were drawn. After return of laboratory and imaging findings, these were discussed with the patient voiced understanding. Consultation was made with the hospitalist service for admission. Additional consultation was made with cardiology due to his known cardiac history. Given that it is been more than 6 hours since his initial discomfort and for set of heart enzymes are negative, will keep him here and trying cardiac enzymes. He was admitted in improved condition with all questions answered. Medical decision makin-year-old male with known coronary disease, no acute changes on his EKG. First set of cardiac enzymes are negative. Admitting him for further evaluation and treatment.[] Dragon Disclaimer Dragon Disclaimer This electronic medical record was generated, in whole or in part, using a voice recognition dictation system. Departure Departure: Impression: Primary Impression: Chest pain Disposition: ADMITTED INPATIENT Admitting Physician: Britni Cooper Condition: IMPROVED Referrals: TREY MATTSON MD (PCP) Problem Qualifiers Primary Impression: Chest pain Chest pain type: unspecified Qualified Codes: R07.9 - Chest pain, unspecified NHUNG SPENCE DO May 21, 2019 15:29
--- NOTE | 2019-05-21 15:47 | RAD ---
EXAM: Chest, single view. HISTORY: Chest pain. COMPARISON: 10/26/2018 FINDINGS: A frontal view of the chest obtained. There is no infiltrate, pleural effusion or pneumothorax. The heart is normal in size. There is a cardiac event monitor overlying the left thorax. There are calcified granulomas. There is a coronary artery stent. IMPRESSION: No acute pulmonary finding. Electronically signed by: Olivia Galindo MD (05/21/2019 3:44 PM) [facility]
[2019-05-21 15:48] LABS: BASO % 0 % (0-3); EOS # 0.1 x10^3/uL (0.0-0.7); EOS % 2 % (0-3); HEMATOCRIT 32.9 % (39.0-53.0); HEMOGLOBIN 10.4 g/dL (13.0-17.5); LYMPH # 1.3 x10^3/uL (1.0-4.8); LYMPH % 23 % (24-48); MEAN CORPUSCULAR HEMOGLOBIN 26 pg (25-35); MEAN CORPUSCULAR HGB CONC 32 g/dL (31-37); MEAN CORPUSCULAR VOLUME 82 fL (79-100); MONO # 0.5 x10^3/uL (0.0-1.1); MONO % 9 % (0-9); NEUT # 3.6 x10^3uL (1.8-7.7); NEUT % 66 % (31-73); PLATELET COUNT 305 x10^3/uL (140-400); RED CELL DISTRIBUTION WIDTH 15.2 % (11.5-14.5); WHITE BLOOD COUNT 5.4 x10^3/uL (4.0-11.0)
[2019-05-21] MEDS ORDERED: ASPIRIN 81 MG TAB.CHEW PO ONE (16:00)
[2019-05-21] MEDS: NITROGLYCERIN SUBLINGUAL 0.4 MG BOTTLE OF 25. SL PRN ×2 (16:02→16:48)
[2019-05-21 16:18] LABS: ALBUMIN 3.1 g/dL (3.4-5.0); ALBUMIN/GLOBULIN RATIO 0.9 (1.0-1.7); ALK PHOS 94 U/L (46-116); ALT (SGPT) 16 U/L (16-63); ANION GAP 11 (6-14); AST (SGOT) 13 U/L (15-37); BLOOD UREA NITROGEN 15 mg/dL (8-26); BUN/CREATININE RATIO 10 (6-20); CALCIUM 8.9 mg/dL (8.5-10.1); CARBON DIOXIDE 25 mmol/L (21-32); CHLORIDE 100 mmol/L (98-107); CREATININE 1.5 mg/dL (0.7-1.3); GFR 48.1; GLUCOSE 290 mg/dL (70-99); LIPASE 166 U/L (73-393); MAGNESIUM 1.2 mg/dL (1.8-2.4); POTASSIUM 4.3 mmol/L (3.5-5.1); SODIUM 136 mmol/L (136-145); TOTAL PROTEIN 6.4 g/dL (6.4-8.2)
[2019-05-21] MEDS ORDERED: ONDANSETRON PF 4 MG/2 ML VIAL. IV PRN (16:45)
[2019-05-21] MEDS ORDERED: NITROGLYCERIN SUBLINGUAL 0.4 MG BOTTLE OF 25. SL PRN (16:45)
[2019-05-21] MEDS ORDERED: ACETAMINOPHEN 325 MG TABLET PO PRN (16:45)
[2019-05-21] MEDS: MORPHINE SULFATE 2 MG/ML DISP.SYRIN. IV PRN ×2 (16:50→20:07)
[2019-05-21 16:56] LABS: TOTAL BILIRUBIN < 0.1 mg/dL (0.2-1.0)
[2019-05-21 18:36] VITALS: BP 186/90
[2019-05-21 19:13] VITALS: BP 179/95
[2019-05-21 21:09] VITALS: BP 125/78
[2019-05-21] MEDS: MAGNESIUM OXIDE 400 MG TABLET PO SCH (23:43)
[2019-05-21] MEDS ORDERED: Influenza vaccine per PROTOCOL. MC PRN (23:45)
[2019-05-21] MEDS ORDERED: LOSA100T14 PO (23:59)
[2019-05-21] MEDS ORDERED: GABA600T7 PO (23:59)
[2019-05-21] MEDS ORDERED: FLUT1DIS IH (23:59)
[2019-05-21] MEDS ORDERED: ALBU2.5V8 INH (23:59)
[2019-05-21] MEDS ORDERED: AMLO10TA8 PO (23:59)
[2019-05-21] MEDS ORDERED: GABA800T5 PO (23:59)
[2019-05-21] MEDS ORDERED: ISOS60TA2 PO (23:59)
[2019-05-21] MEDS ORDERED: INSU100V8 SQ (23:59)
[2019-05-21] MEDS ORDERED: LIPITOR80 MG PO (23:59)
[2019-05-21] MEDS ORDERED: ZOLP10TA PO (23:59)
[2019-05-21] MEDS ORDERED: OXYC5TAB4 PO (23:59)
[2019-05-22] MEDS: MORPHINE SULFATE 2 MG/ML DISP.SYRIN. IV PRN ×4 (05:56→16:08)
[2019-05-22] MEDS ORDERED: LEVOTHYROXINE 150 MCG TABLET PO SCH (06:00)
[2019-05-22 06:16] VITALS: BP 169/79
[2019-05-22 06:21] LABS: HEMATOCRIT 34.3 % (39.0-53.0); HEMOGLOBIN 10.8 g/dL (13.0-17.5); RED BLOOD COUNT 4.14 x10^6/uL (4.30-5.70); RED CELL DISTRIBUTION WIDTH 15.3 % (11.5-14.5); WHITE BLOOD COUNT 4.8 x10^3/uL (4.0-11.0)
[2019-05-22 06:30] LABS: CALCIUM 9.1 mg/dL (8.5-10.1); CREATININE 1.3 mg/dL (0.7-1.3); GFR 56.7; MAGNESIUM 1.4 mg/dL (1.8-2.4); POTASSIUM 4.2 mmol/L (3.5-5.1)
--- NOTE | 2019-05-22 07:34 | EKG ---
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
[2019-05-22] MEDS ORDERED: FLU VAX QS 2019-20 (36MOS+)/PF 0.5 ML SYRINGE. VAX IM ONE (09:00)
[2019-05-22] MEDS: MAGNESIUM OXIDE 400 MG TABLET PO SCH (09:37)
[2019-05-22] MEDS ORDERED: OMEP20TA8 PO (09:54)
[2019-05-22] MEDS ORDERED: PANT40TA5 PO (10:07)
[2019-05-22] MEDS ORDERED: FENO160T PO (10:07)
[2019-05-22] MEDS ORDERED: SERT50TA PO (10:07)
--- NOTE | 2019-05-22 10:14 | PDOC2 ---
CONSULT Date of Admission DATE: 05/22/19 TIME: 10:13 Reason for Consult: Chest pain Referring Physician: Dr. Cooper Chief Complaint Chest pain Source: Chart review, Patient Problem List Problems Medical Problems: (1) Chest pain Status: Acute History of Present Illness 59-year-old male with history of coronary artery disease s/p PCI/stents to LAD and RCA in the past and more recent PCI/stent to in-stent thrombosis involving LAD in Sep 2017 presented complaining of retrosternal chest pain radiating to the back that she described as sharp in nature and different than the pain he had prior to his PCI/stents placement. He denied any exertional component. The pain was relieved with morphine. He denied any orthopnea/PND, palpitations or syncope. He complained of bilateral lower extremities feeling 'cold'but denied any claudication as such. He has history of peripheral artery disease and had undergone NET DEVELOPER WITH WCF/stent placement to left SFA in the past. Past Medical History Coronary artery disease s/p PCI/stents to LAD and RCA Peripheral artery disease s/p NET DEVELOPER WITH WCF/stent to left SFA Hypertension Hyperlipidemia Diabetes mellitus type 2 CVA Past Surgical History Abdominal hernia repair Carpal tunnel surgery Family History Positive for hypertension and coronary artery disease Social History Patient denied any smoking alcohol or drug use Current Medications Current Medications Aspirin (Children'S Aspirin) 324 mg 1X ONCE PO Last administered on 05/21/19at 16:01; Start 05/21/19 at 16:00; Stop 05/21/19 at 16:01; Status DC Nitroglycerin (Nitrostat) 0.4 mg PRN Q5MIN PRN SL CP RATING > 1/10 Last administered on 05/21/19at 16:48; Start 05/21/19 at 15:30; Stop 05/22/19 at 15:29 Ondansetron HCl (Zofran) 4 mg PRN Q4HRS PRN IV NAUSEA/VOMITING; Start 05/21/19 at 16:45; Stop 05/22/19 at 16:44 Morphine Sulfate (Morphine 2mg Syringe) 2 mg PRN Q2HR PRN IV PAIN Last administered on 05/22/19at 09:47; Start 05/21/19 at 16:45; Stop 05/22/19 at 16:44 Acetaminophen (Tylenol) 650 mg PRN Q4HRS PRN PO FEVER; Start 05/21/19 at 16:45; Stop 05/22/19 at 16:44 Nitroglycerin (Nitrostat) 0.4 mg PRN Q5MIN PRN SL CHEST PAIN; Start 05/21/19 at 16:45; Stop 05/22/19 at 16:44; Status Cancel Influenza Virus Vaccine Quadrival (Afluria Quad 2019-20 (3yr Up) Syringe) 0.5 ml ONCE ONCE VAX IM Last administered on 05/22/19at 09:40; Start 05/22/19 at 09:00; Stop 05/22/19 at 09:01; Status DC Magnesium Oxide (Magnesium Oxide) 400 mg BID PO Last administered on 05/22/19at 09:37; Start 05/21/19 at 23:45; Stop 05/23/19 at 09:01 Info (FLU VACCINE per PROTOCOL) 1 ea PRN 1X PRN MC PER PROTOCOL; Start 05/21/19 at 23:45; Status Cancel Levothyroxine Sodium (Synthroid) 150 mcg DAILY06 PO Last administered on 05/22/19at 05:42; Start 05/22/19 at 06:00 Active Scripts Active Reported Pantoprazole Sodium 40 Mg Tablet.dr 1 Tab PO DAILY Fenofibrate 160 Mg Tablet 1 Tab PO DAILY Zoloft (Sertraline Hcl) 50 Mg Tablet 1 Tab PO DAILY Omeprazole 20 Mg Tablet.dr 1 Tab PO DAILY PRN Losartan Potassium 100 Mg Tablet 100 Mg PO DAILY Amlodipine Besylate 10 Mg Tablet 10 Mg PO DAILY Gabapentin 800 Mg Tablet 300 PO QID TAKE 1 CAPSULE IN THE MORNING, 1 CAPSULE IN AFTERNOON, 2 CAPSULES AT BEDTIME Lipitor (Atorvastatin Calcium) 80 Mg Tablet 80 Mg PO QHS Lantus (Insulin Glargine,Hum.rec.anlog) 100 Unit/1 Ml Vial 40 Unit SQ QHS Isosorbide Mononitrate Er (Isosorbide Mononitrate) 60 Mg Tab.er.24h 60 Mg PO DAILY Metformin Hcl Er (Metformin Hcl) 1,000 Mg Tab.er.24 1 Tab PO BID Metoprolol Succinate ( Xl ) (Metoprolol Succinate) 100 Mg Tab.er.24h 100 Mg PO BID Aspirin 81 Mg Tab.chew 325 Mg PO DAILY Plavix (Clopidogrel Bisulfate) 75 Mg Tablet 1 Tab PO DAILY last dose this morning next dose tomorrow Synthroid (Levothyroxine Sodium) 150 Mcg Tablet 150 Mcg PO DAILY06 Ranexa (Ranolazine) 1,000 Mg Tab.er.12h 1,000 Mg PO BID not given this admission may resume Amaryl (Glimepiride) 2 Mg Tablet 2 Mg PO BID not given this admit may resume Nitrostat (Nitroglycerin) 0.4 Mg Tab.subl 0.4 Mg SL PRN Q5MIN PRN not given this admission take as needed for chest pain Allergies: Coded Allergies: No Known Drug Allergies (Unverified , 05/21/19) PSYCHOLOGICAL ROS: No: Hallucinations Eyes: No: Loss of vision HEENT: No: Epistaxis Respiratory: No: Shortness of breath Cardiovascular: yes: Chest Pain Gastrointestinal: No: Vomiting, Diarrhea Neurological: No: Seizures Skin: No: Rash General: Alert, Oriented X3 HEENT: Atraumatic, PERRLA Lungs: Clear to auscultation Heart: Regular rate Abdomen: Soft Extremities: No edema Psych/Mental Status: Mood NL VITALS Vital Signs Date Time Temp Pulse Resp B/P (MAP) Pulse Ox O2 Delivery O2 Flow Rate FiO2 05/22/19 09:47 16 Room Air 05/22/19 06:16 97.8 57 169/79 (109) 95 Labs Laboratory Tests Test 05/21/19 15:15 05/21/19 20:13 05/21/19 21:15 05/22/19 03:03 White Blood Count 5.4 x10^3/uL (4.0-11.0) Red Blood Count 4.00 x10^6/uL (4.30-5.70) Hemoglobin 10.4 g/dL (13.0-17.5) Hematocrit 32.9 % (39.0-53.0) Mean Corpuscular Volume 82 fL (79-100) Mean Corpuscular Hemoglobin 26 pg (25-35) Mean Corpuscular Hemoglobin Concent 32 g/dL (31-37) Red Cell Distribution Width 15.2 % (11.5-14.5) Platelet Count 305 x10^3/uL (140-400) Neutrophils (%) (Auto) 66 % (31-73) Lymphocytes (%) (Auto) 23 % (24-48) Monocytes (%) (Auto) 9 % (0-9) Eosinophils (%) (Auto) 2 % (0-3) Basophils (%) (Auto) 0 % (0-3) Neutrophils # (Auto) 3.6 x10^3uL (1.8-7.7) Lymphocytes # (Auto) 1.3 x10^3/uL (1.0-4.8) Monocytes # (Auto) 0.5 x10^3/uL (0.0-1.1) Eosinophils # (Auto) 0.1 x10^3/uL (0.0-0.7) Basophils # (Auto) 0.0 x10^3/uL (0.0-0.2) Prothrombin Time 10.0 SEC (9.4-11.4) Prothromb Time International Ratio 1.0 (0.9-1.1) Activated Partial Thromboplast Time 26 SEC (23-33) Sodium Level 136 mmol/L (136-145) Potassium Level 4.3 mmol/L (3.5-5.1) Chloride Level 100 mmol/L (98-107) Carbon Dioxide Level 25 mmol/L (21-32) Anion Gap 11 (6-14) Blood Urea Nitrogen 15 mg/dL (8-26) Creatinine 1.5 mg/dL (0.7-1.3) Estimated GFR (Cockcroft-Gault) 48.1 BUN/Creatinine Ratio 10 (6-20) Glucose Level 290 mg/dL (70-99) Calcium Level 8.9 mg/dL (8.5-10.1) Magnesium Level 1.2 mg/dL (1.8-2.4) Total Bilirubin < 0.1 mg/dL (0.2-1.0) Aspartate Amino Transf (AST/SGOT) 13 U/L (15-37) Alanine Aminotransferase (ALT/SGPT) 16 U/L (16-63) Alkaline Phosphatase 94 U/L (46-116) Troponin I Quantitative < 0.017 ng/mL (0-0.055) < 0.017 ng/mL (0-0.055) < 0.017 ng/mL (0-0.055) AJ-Esl-T-Type Natriuretic Peptide 596 pg/mL (0-124) Total Protein 6.4 g/dL (6.4-8.2) Albumin 3.1 g/dL (3.4-5.0) Albumin/Globulin Ratio 0.9 (1.0-1.7) Lipase 166 U/L (73-393) Glucose (Fingerstick) 80 mg/dL (70-99) Test 05/22/19 05:54 05/22/19 07:44 White Blood Count 4.8 x10^3/uL (4.0-11.0) Red Blood Count 4.14 x10^6/uL (4.30-5.70) Hemoglobin 10.8 g/dL (13.0-17.5) Hematocrit 34.3 % (39.0-53.0) Mean Corpuscular Volume 83 fL (79-100) Mean Corpuscular Hemoglobin 26 pg (25-35) Mean Corpuscular Hemoglobin Concent 31 g/dL (31-37) Red Cell Distribution Width 15.3 % (11.5-14.5) Platelet Count 303 x10^3/uL (140-400) Sodium Level 140 mmol/L (136-145) Potassium Level 4.2 mmol/L (3.5-5.1) Chloride Level 103 mmol/L (98-107) Carbon Dioxide Level 30 mmol/L (21-32) Anion Gap 7 (6-14) Blood Urea Nitrogen 12 mg/dL (8-26) Creatinine 1.3 mg/dL (0.7-1.3) Estimated GFR (Cockcroft-Gault) 56.7 Glucose Level 93 mg/dL (70-99) Calcium Level 9.1 mg/dL (8.5-10.1) Magnesium Level 1.4 mg/dL (1.8-2.4) Glucose (Fingerstick) 94 mg/dL (70-99) Assessment/Plan 1. Chest pain with atypical features. He has known history of coronary artery disease s/p PCI/stents to LAD and RCA as stated above. He has residual chronic total occlusion of second obtuse marginal branch. Myocardial infarction has been ruled out based on cardiac enzymes and EKG. 2-D echo in March 2018 showed LVEF 55-60%. We will consider ischemic evaluation with stress test as an outpatient. 2. Peripheral artery disease s/p NET DEVELOPER WITH WCF/stent to left SFA. He complained of bilateral lower extremities feeling cold but denied any claudication as such. Plan for arterial duplex scan as an outpatient. 3. Hypertension: Blood pressure elevated. Resume home medications and titrate for better control. 4. Hyperlipidemia: Continue statin therapy. 5. Hypothyroidism: Continue levothyroxine. 6. Diabetes mellitus type 2: Continue current medications and consider starting Jardiance to optimize CV outcomes. Thank you for your consultation. JAGDISH MADDEN MD May 22, 2019 10:13
[2019-05-22 10:55] VITALS: BP 167/94
[2019-05-22] MEDS ORDERED: NITROGLYCERIN SUBLINGUAL 0.4 MG BOTTLE OF 25. SL PRN (13:45)
[2019-05-22] MEDS ORDERED: NON FORMULARY ITEM (Omeprazole 1 TAB) PO PRN (13:45)
[2019-05-22] MEDS ORDERED: PANTOPRAZOLE 40 MG TABLET. PO SCH (14:00)
[2019-05-22] MEDS ORDERED: LOSARTAN 50 MG TABLET. PO SCH (14:00)
[2019-05-22] MEDS ORDERED: ASPIRIN 81 MG TAB.CHEW PO SCH (14:00)
[2019-05-22] MEDS ORDERED: amLODIPine BESYLATE 10 MG TABLET PO SCH (14:00)
[2019-05-22] MEDS ORDERED: METOPROLOL SUCC 24HR ER 50 MG TAB.ER.24H. PO SCH (14:00)
[2019-05-22] MEDS ORDERED: ISOSORBIDE MONONITRATE ER 30 MG TAB.ER.24H PO SCH (14:00)
[2019-05-22] MEDS ORDERED: CLOPIDOGREL BISULFATE 75 MG TABLET PO SCH (14:00)
[2019-05-22] MEDS ORDERED: IOHEXOL 350 MG/ML 100 ML VIAL. IV ONE (14:15)
[2019-05-22 14:46] VITALS: BP 167/94
[2019-05-22] MEDS ORDERED: MAGNESIUM SULFATE 2GM 50 ML IV ONE (15:00)
--- NOTE | 2019-05-22 15:24 | HP ---
ADMIT DATE: 05/21/2019 HISTORY OF PRESENT ILLNESS: The patient is a 59-year-old male patient who came to the Emergency Room complaining of chest pain that apparently started when he was preparing his breakfast. The pain was described as heavy weights squeezing his left side of the chest radiating into his back that is similar to his previous cardiac pain when he had his previous cardiac stents. He took actually 2 nitroglycerins and the pain has subsided. He did complain of nausea, but no vomiting. He denied any shortness of breath or diaphoresis. At around 2:30 in the afternoon, he was cleaning the hamster cage and he developed again another episode of chest pain that he rated about 7/10 in severity for which he took 3 sublingual nitroglycerins, but the pain did not go away, and therefore, he presented to the Emergency Room. Again, he did complain of nausea, but no vomiting. He did complain of some shortness of breath, but denied any diaphoresis. The pain continued to radiate [id number] to the back with left side around his shoulder blade and was evaluated in the Emergency Room where his EKG showed that he was in sinus rhythm at 63 beats per minute with left axis deviation, a corrected QT interval of 400, but there is no ST-segment elevation, and compared to another EKG done on 10/06/2009 showed no acute changes at present. He had a chest x-ray, which showed no acute pulmonary finding. His first set of cardiac enzyme showed the troponin was less than 0.017. The patient was admitted to do 2 more sets of cardiac enzymes, check fasting lipid profile, and consult the cardiology team. PAST MEDICAL HISTORY: Significant for coronary artery disease with previous stents to both left anterior descending and right coronary artery. In fact, he has a total of 7 stents in his heart. He also had myocardial infarction in 2016. He is also known to have peripheral vascular disease, status post stenting of his left femoral artery, hypertension, hyperlipidemia, type 2 diabetes, and hypothyroidism. He has also history of cerebrovascular accident x 2 with residual right lower extremity weakness, had 3 TIAs with vertigo and unsteady gait. PAST SURGICAL HISTORY: Significant for bilateral carpal tunnel release and right ulnar nerve transposition, left knee arthroscopic surgery, left wrist fracture status post open reduction and internal fixation and bone grafting. He also had surgery to his left knee because of recurrent avulsion of his posterior tibial tendon and right shoulder arthroscopic surgery. ALLERGIES: He has no known drug allergies. FAMILY HISTORY: Positive for premature coronary artery disease and kidney disease. SOCIAL HISTORY: The patient is compliant with diet and medication regimen. He quit smoking in 2018. He denies any alcohol or using recreational drugs. He lives with his . MEDICATIONS: He is currently on following medications: He is on Plavix 75 mg once a day, Ranexa 1000 mg twice a day, fenofibrate 160 mg daily, atorvastatin calcium 80 mg at bedtime, isosorbide mononitrate 60 mg daily, nitroglycerin 0.4 mg sublingually every 5 minutes x 3, metoprolol succinate 100 mg twice a day, amlodipine besylate 10 mg daily, losartan potassium 100 mg daily, aspirin 81 mg once a day, gabapentin 300 mg 4 times a day, sertraline 50 mg daily, omeprazole 20 mg once a day, Protonix 40 mg once a day, metformin 1000 mg twice a day, levothyroxine sodium 150 mcg once a day, and glimepiride for Amaryl 2 mg twice a day. He is also on Lantus insulin 40 units at bedtime. REVIEW OF SYSTEMS: As per history of present illness. PHYSICAL EXAMINATION: GENERAL: On arrival to the Emergency Room, the patient looked well and was clearly in no apparent respiratory distress. No pallor, jaundice, cyanosis, or thyromegaly. No jugular venous distention. No limb edema. VITAL SIGNS: His heart rate was 62, blood pressure was 175/85, temperature was 97.7, respiratory rate was 28, and oxygen saturation was 97%. HEAD, EYES, EARS, NOSE, AND THROAT: Normocephalic, atraumatic. NECK: Supple. HEART: Showed normal first and second heart sounds. No gallop or murmur. CHEST: Clear to auscultation. No crepitation or rhonchi. ABDOMEN: Distended, soft, nontender. No guarding or rigidity. No organomegaly. All hernial orifice intact. Bowel sounds normal. NEUROLOGIC: He is awake, alert, responding appropriately. All cranial nerves are intact. EXTREMITIES: He moves extremities without difficulty. LABORATORY DATA: His chest x-ray showed that there is no infiltrate, pleural effusion, or pneumothorax. The heart size is normal. There is a cardiac event monitoring overlying his left thorax. There are calcified granulomas. There is a coronary artery stent. His lab work showed a white cell count 5400, hemoglobin 10, hematocrit 33, MCV 82, and platelet count 305,000 with normal manual differential. His chemistry showed a serum sodium 136, potassium 4.3, chloride 100, bicarbonate 25, anion gap of 11, BUN 15, creatinine 1.5, estimated GFR was 48 mL per minute, his glucose was 190, calcium was 8.9, magnesium was 1.2. His total bilirubin, AST, ALT, alkaline phosphatase were normal. B-type natriuretic peptide was 596. His first troponin was less than 0.017. Total protein was 6.4, albumin 3.1, lipase 166. His prothrombin time, INR, and aPTT were normal. ASSESSMENT AND PLAN: The patient was admitted with chest pain. We will do 2 more sets of cardiac enzyme. We will check his fasting lipid profile, consult the Cardiology team, and decide on the further management accordingly. BRAYDEN PATRICK MD DR: JOSE E/eladio JOB#: [id number] / [id number]
--- NOTE | 2019-05-22 16:38 | RAD ---
Exam: CT of chest with contrast INDICATION: Left-sided chest pain TECHNIQUE: Sequential axial images through the chest obtained following the administration of 75 mL of Isovue-370 IV contrast. Sagittal and coronal reformatted images were reconstructed from the axial data and reviewed. Comparisons: 04/13/2018 FINDINGS: Visualized portions of the thyroid are unremarkable. No enlarged mediastinal lymph nodes are identified. Heart size is normal. No pericardial effusion. Minimal coronary artery calcifications. Thoracic aorta has a normal course and caliber. Pulmonary artery is not enlarged. No pulmonary embolus is identified within the main, lobar or segmental pulmonary arteries. Airways are patent. No consolidation or pneumothorax. 9 mm nodule right lower lobe series 3 image 81, which is minimally increased in size when compared to the prior exam. No pleural effusion or thickening. Partially visualized within the anterior abdominal wall is a fluid collection measuring at least 12 x 3 cm. Stable small adrenal nodule on the right. No suspicious osseous lesions or acute fractures. IMPRESSION: 1. No pulmonary embolus identified within the main, lobar or segmental pulmonary arteries. 2. Incompletely visualized fluid collection within the musculature of the midline anterior abdominal wall measuring at least 12 x 3 cm. This may represent postoperative seroma as suture material is noted along its periphery. This can be better assessed with ultrasound if clinically warranted. 3. A 9 mm nodule in the right lower lobe which has minimally increased in size when compared to the study from approximately one year ago. Continued follow-up imaging is recommended in 3-6 months to assess for further change. Exposure: One or more of the following in the visualized dose reduction techniques were utilized for this examination: 1. Automated exposure control 2. Adjustment of the MA and/or KV according to patient size 3. Use of iterative of reconstructive technique Electronically signed by: Jaret Contreras MD (05/22/2019 4:34 PM) [facility]
[2019-05-22] MEDS ORDERED: GABAPENTIN 300 MG CAPSULE. PO SCH (17:00)
[2019-05-22] MEDS ORDERED: NON FORMULARY ITEM (Gabapentin 300 MG) PO SCH (17:00)
[2019-05-22] MEDS ORDERED: METOPROLOL SUCCINATE 100 MG PO SCH (21:00)
[2019-05-22] MEDS ORDERED: ATORVASTATIN CALCIUM 80 MG PO SCH (21:00)
[2019-05-22] MEDS ORDERED: ATORVASTATIN CALCIUM 20 MG TABLET PO SCH (21:00)
[2019-05-22] MEDS ORDERED: RANOLAZINE 500 MG TAB.ER.12H PO SCH (21:00)
[2019-05-22] MEDS ORDERED: NON FORMULARY ITEM (Ranolazine (Ranexa) 1,000 MG) PO SCH (21:00)
[2019-05-22] MEDS ORDERED: GLIMEPIRIDE 2 MG TABLET PO SCH (21:00)
[2019-05-22] MEDS ORDERED: INSULIN GLARGINE SYRINGE. SQ SCH (21:00)
--- NOTE | 2019-05-22 21:23 | DS ---
DATE OF DISCHARGE: 05/22/2019 HOSPITAL COURSE: The patient was admitted with a complaint of left-sided chest pain that radiates through and through to the back of his left shoulder, associated with nausea, but no vomiting. He has 2 episodes of chest pain, one started in the morning, lasted about half an hour and responded to 2 sublingual nitroglycerin, the second one started in the afternoon and did not respond to 3 sublingual nitroglycerin and therefore, he came to the Emergency Room. He was admitted and has had 3 sets of cardiac enzymes, all of them showed troponin to be less than 0.017. He was seen in consultation by Dr. Jansen as he is well known to the Cardiology team of [facility], and his recommendation was to consider ischemic evaluation with stress test as an outpatient. I did actually CT scan of the chest with PE protocol and it was negative for pulmonary emboli. The heart size was normal, no pericardial effusion, minimal coronary artery calcification, thoracic aorta has a normal course and caliber. Pulmonary artery is not enlarged. No pulmonary embolus identified within the main lobar and segmental pulmonary arteries. His airways were patent. No consolidation, no pneumothorax. He has a 9 mm nodule in right lower lobe, which is minimally increased in size when compared to prior exam. No pleural effusion or thickening. He has a partially visualized within the anterior abdominal wall fluid collection measuring at least 12 x 3 cm, stable small adrenal nodule in the right; however, there is no suspicious osseous lesion or acute fracture. As he remained stable and myocardial infarction was ruled out, a decision was made to discharge him home to follow up with the arrangement by the cardiology team for ischemic workup. As he had his surgery done at [facility], I recommended that he should follow with his surgical team there as he probably requires ultrasound and evaluation by the surgical team to elucidate the nature of the fluid in the anterior abdominal wall. PHYSICAL EXAMINATION: GENERAL: When I saw him this afternoon, he looked well and was clearly in no apparent respiratory distress, pale, but no jaundice, cyanosis, or thyromegaly. No jugular venous distention. No limb edema. VITAL SIGNS: His heart rate was 56, blood pressure was 167/94, temperature was 98, respiratory rate was 16, and oxygen saturation was 96% on room air. HEAD, EYES, EARS, NOSE, AND THROAT: Showed normocephalic, atraumatic. NECK: Supple. HEART: Showed normal first and second heart sounds with no gallop or murmur. CHEST: Clear to auscultation. No crepitation or rhonchi. ABDOMEN: Distended, soft with midline surgical incision healing nicely. There is definitely no redness, tenderness, or discharge. I could not elucidate any in that area. There is no guarding or rigidity. No organomegaly. All hernial orifice intact. Bowel sounds present and normal. NEUROLOGIC: He is awake, alert, responding appropriately. All his cranial nerves are intact. He moves extremities without difficulty, ambulates without assistance or assistive devices. LABORATORY DATA: His lab work showed a white cell count of 4800, hemoglobin 11, hematocrit 34, MCV 83, and platelet count of 303,000. Serum sodium was 140, potassium 4.2, chloride 103, bicarbonate 30, anion gap of 7, BUN 12, creatinine was 1.3, estimated GFR was 56 mL per minute, his glucose was 93, calcium was 9.1, and magnesium was 1.4, for which he did receive 2 grams of magnesium sulfate. His prothrombin time, INR, and APTT were normal. DISCHARGE MEDICATIONS: He was discharged home to continue on amlodipine 10 mg once a day, aspirin 325 mg once a day, atorvastatin calcium 80 mg at bedtime, Plavix 75 mg once a day, fenofibrate 160 mg daily, gabapentin 300 mg 4 times a day, glimepiride 2 mg twice a day. He is on Lantus insulin 40 units at bedtime, isosorbide mononitrate 60 mg daily, levothyroxine sodium 150 mcg once a day, losartan potassium 100 mg daily, metformin 1000 mg p.o. b.i.d., metoprolol succinate 100 mg twice a day, nitroglycerin 0.4 mg sublingually every 5 minutes x 3, omeprazole 20 mg daily, Protonix 40 mg once a day, Ranexa 1000 mg twice a day, and sertraline for Zoloft 50 mg daily. The patient was advised not to take his metformin for the next 48 hours. FOLLOWUP: He will be followed by the cardiology team for outpatient ischemic workup. FINAL DISCHARGE DIAGNOSES: Chest pain, atypical, myocardial infarction ruled out. He has peripheral vascular disease, hypertension, hyperlipidemia, hypothyroidism, and type 2 diabetes. BRAYDEN PATRICK MD DR: Olivia JOB#: [id number] / [id number]
--- NOTE | 2019-05-23 02:40 | PN ---
DATE: 05/22/2019 SUBJECTIVE: The patient was admitted yesterday with 2 episodes of chest pain. The first one started around 8:30 in the morning, lasted about half an hour responded to 2 sublingual nitroglycerin, pain was rated about 7/10 in severity, associated with some nausea, but no vomiting, no diaphoresis and no shortness of breath. The patient had another episode around 2:30 in the afternoon that has not responded to 3 sublingual nitroglycerins and was seen in the Emergency Room where he has had an EKG and so far has 3 sets of cardiac enzymes that has ruled out myocardial infarction. He continued to have pain that he describes as squeezing nature around his left chest that radiates through and through to the back around his left shoulder blade. He denied any cough, phlegm or hemoptysis. Denied any shortness of breath. PHYSICAL EXAMINATION: GENERAL: When I examined him, he was resting slightly propped up in bed, in no apparent respiratory distress. He was somewhat pale, but no jaundice, cyanosis or thyromegaly. No jugular venous distention. No limb edema. VITAL SIGNS: Her heart rate was 56, blood pressure was 167/94, temperature was 97.6, respiratory rate was 18 and oxygen saturation was 95%. HEAD, EYES, EARS, NOSE AND THROAT: Showed normocephalic, atraumatic. NECK: Supple. HEART: Showed normal first and second heart sounds. No gallop or murmur. CHEST: Clear to auscultation. No crepitation or rhonchi. ABDOMEN: Distended, soft, nontender. No guarding or rigidity. No organomegaly. All hernial orifice intact. Bowel sounds normal. NEUROLOGIC: He was awake, alert, responding appropriately. All his cranial nerves are intact. He moves extremities without difficulty. LABORATORY DATA: Her lab work this morning showed a white cell count of 4800, hemoglobin 11, hematocrit 34, MCV 83, and platelet count of 303,000. Serum sodium was 140, potassium 4.2, chloride 103, bicarbonate 30, anion gap of 7, BUN 12, creatinine 1.3, estimated GFR was 56 mL per minute. His glucose was 93, calcium was 9.1 and magnesium was 1.4. ASSESSMENT: 1. Chest pain, atypical, myocardial infarction was ruled out. He has 3 sets of cardiac enzymes that were negative. 2. Hypomagnesemia, for which we will treat him with both IV and oral magnesium. 3. Persistent left-sided chest pain radiating through to the back, which I will arrange for him to have a chest angiography. The patient has multiple obviously medical problems including: A. Coronary artery disease, status post PCI with stent deployment x 7. B. Hypertension. C. Hyperlipidemia. D. Type 2 diabetes mellitus. E. Hypothyroidism. F. Osteoarthritis. We have already consulted the box chipper and we will obviously decide the further management according to finding on his CT scan. BRAYDEN PATRICK MD DR: JOSE E/eladio JOB#: [id number] / [id number]
[2019-05-23] MEDS ORDERED: ISOSORBIDE MONONITRATE 60 MG PO SCH (09:00)
[2019-05-23] MEDS ORDERED: NON FORMULARY ITEM (Losartan Potassium 100 MG) PO SCH (09:00)
[2019-05-23] MEDS ORDERED: SERTRALINE 50 MG TABLET. PO SCH (14:00)
[2019-05-25] MEDS ORDERED: metFORMIN XR 500 MG TAB.ER.24H PO SCH (08:00)
== END 2019-05-22 18:04 | disposition home or self-care (01) ==
LOC: ER 14:46 → 1 SOUTH 17:00
PROVIDERS: ADMIT Internal Medicine; ATTEND Internal Medicine
DX: R07.89 Other chest pain (principal); I25.10 Atherosclerotic heart disease of native coronary artery without angina pectoris; I10 Essential (primary) hypertension; E03.9 Hypothyroidism, unspecified; I25.2 Old myocardial infarction; E78.5 Hyperlipidemia, unspecified; E27.8 Other specified disorders of adrenal gland; E11.51 Type 2 diabetes mellitus with diabetic peripheral angiopathy without gangrene; R42 Dizziness and giddiness; R26.81 Unsteadiness on feet; M19.90 Unspecified osteoarthritis, unspecified site; E83.42 Hypomagnesemia; R11.0 Nausea; G56.03 Carpal tunnel syndrome, bilateral upper limbs; Z95.820 Peripheral vascular angioplasty status with implants and grafts; Z95.5 Presence of coronary angioplasty implant and graft; Z87.891 Personal history of nicotine dependence; Z82.49 Family history of ischemic heart disease and other diseases of the circulatory system; Z86.73 Personal history of transient ischemic attack (TIA), and cerebral infarction without residual deficits; Z23 Encounter for immunization
CPT/HCPCS: 36415; 71045; 71275; 80048; 80053; 82947; 83690; 83735; 83880; 84484; 85025; 85027; 85610; 85730; 90471; 90686; 93005; 96365; 96366; 96375; 96376; 99284; G0378; J2270; J3475; Q9967; G0379

== ENCOUNTER → 2019-05-31 | Outpatient (CLI) | payer OTHER ==
[2019-05-22 14:46] VITALS: BP 167/94
[~2019-05-31] MED LIST changes: +ALBU2.5V8 INH; +AMLO10TA8 PO; +FENO160T PO; +FLUT1DIS IH; +GABA600T7 PO; +GABA800T5 PO; +INSU100V8 SQ; +ISOS60TA2 PO; +LIPITOR80 MG PO; +LOSA100T14 PO; +OMEP20TA8 PO; +OXYC5TAB4 PO; +PANT40TA5 PO; +SERT50TA PO; +ZOLP10TA PO
--- NOTE | 2019-05-31 09:23 | RAD ---
Right lower extremity arterial ultrasound History: Peripheral artery disease, claudication Findings: Multiple grayscale, color, and duplex spectral analysis sonographic images were acquired of the right lower extremity arterial vasculature. There are no previous similar exams. Right lower extremity arterial duplex ultrasound examination was performed. Velocities in cm/sec: RIGHT Common femoral artery 87-biphasic flow is noted Profunda femoris artery 219-biphasic flow noted Monophasic flow is identified more distally including: Proximal SFA 424 Mid SFA 32 Distal SFA 36 Popliteal artery 40 Anterior tibial artery 19 Dorsalis pedis artery 19 Posterior tibial artery 41 Peroneal artery 20 Severe stenosis involving the proximal superficial femoral artery and profunda femoris artery is noted. Impression: 1. Significant stenosis identified involving the right proximal superficial femoral artery and deep femoral artery with elevated flow velocities. Atheromatous plaque is evident at these sites and diffusely as well involving the right thorax showing arterial vasculature. Electronically signed by: Mandeep Mistry MD (05/31/2019 9:21 AM) [facility]
--- NOTE | 2019-05-31 09:27 | RAD ---
Examination: ABDOMEN LTD History: Postoperative fluid collection on CT Comparison/Correlation: None Findings: Fluid collection with debris within it is identified within the deep aspect of the abdominal wall at the suture site at the supraumbilical region. This extends from near the xiphoid process level and inferiorly is near the umbilicus. This collection measures 17.1 cm longitudinal bilaterally 0.3 cm transverse by 1.9 cm anteroposterior. There is no suspicious flow identified within. Impression: Slightly complex loculated fluid collection within the abdominal wall. Electronically signed by: Mandeep Mistry MD (05/31/2019 9:24 AM) [facility]
== END | disposition home or self-care (01) ==
LOC: US 07:39
PROVIDERS: ATTEND Family Medicine
DX: I70.201 Unspecified atherosclerosis of native arteries of extremities, right leg (principal); K68.11 Postprocedural retroperitoneal abscess
CPT/HCPCS: 76705; 93926

== ENCOUNTER 2019-07-30 06:42 | Emergency (ER) | payer MEDICAID, OTHER ==
[~2019-07-30] VITALS: Ht 182.9 cm; Wt 106.0 kg
[~2019-07-30 06:42] MED LIST changes: +SIMV20TA18 PO; -SIMV20TA3 PO
[2019-07-30] MEDS ORDERED: HEPARIN 25,000UTS/500ML PREMIX 500 ML IV PRN (07:15)
[2019-07-30] MEDS ORDERED: HEPARIN for IV BOLUS 10,000 UNIT/10 ML VIAL. IV PRN ×2 (07:15)
[2019-07-30] MEDS ORDERED: ONDANSETRON PF 4 MG/2 ML VIAL. IVP ONE (07:30)
[2019-07-30] MEDS ORDERED: MORPHINE SULFATE 4 MG/ML DISP.SYRIN. IV ONE (07:30)
[2019-07-30] MEDS ORDERED: HEPARIN for IV BOLUS 10,000 UNIT/10 ML VIAL. IV ONE (07:40)
[2019-07-30 07:41] VITALS: BP 139/59
--- NOTE | 2019-07-30 07:53 | PHYS DOC ---
Past History Past Medical History: CAD, Diabetes, Hypertension, Hypothyroid, Stroke Past Surgical History: Other Additional Past Surgical Histo: abd hernia repair; carpal tunnel; L wrist ulnar nerve; cardiac stents x7 Smoking: Non-smoker Alcohol Use: None Drug Use: None Adult General Chief Complaint Chief Complaint: LOWER EXT PAIN HPI HPI Patient is a 59-year-old male with history of severe peripheral artery disease had right leg arterial stent placed 2 days ago at [facility] presents with acute right leg pain starting yesterday afternoon of your pain for the past several diffuse leg pain extending bloating for the past several hours. On exam, the patient's leg is mottled extending from bellow the knee to the abdomen. There are no palpable femoral or popliteal or tibial pulses. Cap refill is noted. Abdomen is soft, nondistended. Patient is on Plavix and is compliant with therapy. [] Review of Systems Review of Systems Review symptoms as per history of present illness. All other systems were reviewed and found to be within normal limits, except as documented in this note. Current Medications Current Medications Current Medications Medications (Trade) Dose Ordered Sig/Manuel Start Time Stop Time Status Last Admin Dose Admin Heparin Sodium (Porcine) (Heparin Sodium) 1,000 unit PRN Q6HRS PRN 07/30/19 07:15 Heparin Sodium/ Dextrose 500 ml @ 0 mls/hr CONT PRN 07/30/19 07:15 07/30/19 07:40 33.9 MLS/HR Morphine Sulfate (Morphine 4mg Syringe) 4 mg 1X ONCE 07/30/19 07:30 07/30/19 07:31 DC 07/30/19 07:32 4 MG Ondansetron HCl (Zofran) 4 mg 1X ONCE 07/30/19 07:30 07/30/19 07:31 DC 07/30/19 07:31 4 MG Allergies Allergies Allergies Coded Allergies Type Severity Reaction Last Updated Verified No Known Drug Allergies 07/30/19 No Physical Exam Physical Exam Constitutional: Well developed, well nourished,moderate discomfort . [] HENT: Normocephalic, atraumatic, bilateral external ears normal, nose normal. [] Eyes: PERRLA, EOMI, conjunctiva normal. [] Neck: Normal range of motion. [] Cardiovascular:Heart rate regular rhythm, no murmur. [] Lungs & Thorax: Bilateral breath sounds clear to auscultation. [] Abdomen: Soft, mottling bruising noted to abdominal wall. [] Skin: Warm, dry. [] Back: No tenderness. [] Extremities: Right leg is mottled extending from groin to knee. There are no palpable femoral or popliteal or tibial pulses palpated. Cap refill is noted. Leg is pale and cool to the touch, but not cold. Left leg faint femoral popliteal pulses. [] Neurologic: Alert and oriented X 3, normal motor function, decreased sensation right leg. [] Psychologic: Affect normal, judgement normal, mood normal. [] Current Patient Data Vital Signs Vital Signs Date Time Temp Pulse Resp B/P (MAP) Pulse Ox O2 Delivery O2 Flow Rate FiO2 07/30/19 07:41 64 18 139/59 (85) 99 Room Air 07/30/19 06:55 97.9 EKG EKG [] Radiology/Procedures Radiology/Procedures R lower ext arterial US: P[] Course & Med Decision Making Course & Med Decision Making Pertinent Labs and Imaging studies reviewed. (See chart for details) [Painful mottled right leg with recent common iliac stent placed at [facility] last week. Heparin initiated and morphine given. Case was discussed with Dr. Howell at 07:15 requests patient be transferred to [facility] emergently without further studies in the emergency department. Dr. Rodriguez accepts the patient 7:20. Labs and US obtained pending room assignment/EMS arrival. Patient continues to complain of right leg pain, CK elevated ~450. Official US results pending. ] Dragon Disclaimer Dragon Disclaimer This electronic medical record was generated, in whole or in part, using a voice recognition dictation system. Departure Departure: Impression: Primary Impression: Right leg pain Additional Impression: Limb ischemia Disposition: 05 TRANSFER OTHER Condition: GUARDED Referrals: TREY MATTSON MD (PCP) Problem Qualifiers RUI RUIZ DO Jul 30, 2019 07:53
[2019-07-30 08:00] LABS: BASO % 1 % (0-3); EOS # 0.2 x10^3/uL (0.0-0.7); EOS % 3 % (0-3); HEMATOCRIT 36.3 % (36.0-47.0); HEMOGLOBIN 11.6 g/dL (12.0-15.5); LYMPH # 1.6 x10^3/uL (1.0-4.8); LYMPH % 28 % (24-48); MEAN CORPUSCULAR HEMOGLOBIN 25 pg (25-35); MEAN CORPUSCULAR HGB CONC 32 g/dL (31-37); MEAN CORPUSCULAR VOLUME 79 fL (79-100); MONO # 0.5 x10^3/uL (0.0-1.1); MONO % 8 % (0-9); NEUT # 3.4 x10^3uL (1.8-7.7); NEUT % 61 % (31-73); PLATELET COUNT 298 x10^3/uL (140-400); RED BLOOD COUNT 4.59 x10^6/uL (3.50-5.40); RED CELL DISTRIBUTION WIDTH 18.1 % (11.5-14.5); WHITE BLOOD COUNT 5.6 x10^3/uL (4.0-11.0)
[2019-07-30 08:12] LABS: ALBUMIN 3.5 g/dL (3.4-5.0); CALCIUM 8.5 mg/dL (8.5-10.1); CREATININE 1.4 mg/dL (0.6-1.0); GFR 38.6; POTASSIUM 4.4 mmol/L (3.5-5.1); TOTAL BILIRUBIN 0.3 mg/dL (0.2-1.0)
--- NOTE | 2019-07-30 08:38 | RAD ---
DUPLEX SONOGRAPHY OF THE PERIPHERAL ARTERIAL SYSTEM OF THE RIGHT LOWER EXTREMITY Clinical indications: Right leg pain. History of right iliac stent placement last Tuesday on July 27, 2019. COMPARISON: May 31, 2019. Findings: Duplex sonography of the peripheral arterial system of the right lower extremity including basurto scale and color flow and spectral waveform analysis was performed. There is a short segmental occlusion of the proximal to mid right superficial femoral artery. Collateral vessels are evident with reconstitution distal to the segmental occlusion. This is a new finding. There is an increase in end-diastolic flow velocity with low resistance waveform distal to the occlusion. The measurements were performed using the NASCET criteria. Peak systolic flow velocities are as follows: Right leg: common femoral artery- 70 cm/sec, profunda femoral artery -54 cm/sec, proximal superficial femoral artery -45 cm/sec, mid superficial femoral artery -10 cm/sec, distal superficial femoral artery- 28 cm/sec, popliteal artery -21 cm/sec, proximal posterior tibial artery- 19 cm/sec, distal posterior tibial artery- 17 cm/sec, peroneal artery- 13 cm/sec, anterior tibial artery- 13 cm/sec, dorsalis pedis artery -12 cm/sec. Impression: New finding of short segmental occlusion of the proximal to mid right superficial femoral artery with collateral vessels and reconstitution distal to the segmental occlusion. Electronically signed by: Raheem Hawkins MD (07/30/2019 8:35 AM) [facility]
== END 2019-07-30 08:41 | disposition short-term general hospital (02) ==
LOC: ER 06:42
DX: M62.261 Nontraumatic ischemic infarction of muscle, right lower leg (principal); I25.10 Atherosclerotic heart disease of native coronary artery without angina pectoris; E11.9 Type 2 diabetes mellitus without complications; I10 Essential (primary) hypertension; E03.9 Hypothyroidism, unspecified; Z86.73 Personal history of transient ischemic attack (TIA), and cerebral infarction without residual deficits
CPT/HCPCS: 36415; 80053; 82550; 85025; 93923; 96365; 96375; 96376; 99285; J1644; J2270; J2405

== ENCOUNTER 2019-08-16 11:00 | Emergency (ER) | payer MEDICAID, OTHER ==
[~2019-08-16] VITALS: Ht 182.9 cm; Wt 104.3 kg
[2019-08-16 11:18] VITALS: BP 167/78
--- NOTE | 2019-08-16 13:11 | RAD ---
ARTERIAL STUDY LOWER EXT LEFT 08/16/2019 11:53 AM Clinical Information: Left thigh pain for 2 days with history of peripheral artery disease. Comparison: None. Technique: Multiple grayscale, color Doppler, and spectral Doppler sonographic images of the lower extremity arterial structures were obtained. Findings: Left: Triphasic waveforms identified involving the common femoral artery, deep femoral artery, mid and distal superficial femoral artery. Biphasic waveforms identified throughout the rest of the left lower extremity arterial system. Calcified plaque is noted throughout the left lower extremity. Common femoral artery: 92 cm/s Profunda artery: 135 cm/s Superficial femoral artery, proximal: 106 cm/s Superficial femoral artery, mid: 153 cm/s Superficial femoral artery, distal: 135 cm/s Popliteal artery: 51-81 cm/s Posterior tibial artery: 66/71 cm/s Anterior tibial artery: 66 cm/s Peroneal artery: 45 cm/s Dorsalis pedis artery: 39 cm/s IMPRESSION: Calcified and noncalcified atheromatous plaque is identified at the left lower extremity without a focal high-grade stenosis or vascular occlusion involving the left lower extremity. Electronically signed by: Allie Conteh MD (08/16/2019 1:08 PM) [id number]
--- NOTE | 2019-08-16 13:22 | PHYS DOC ---
Past History Past Medical History: CAD, Diabetes, Hypertension, Hypothyroid, Stroke Past Surgical History: Other Additional Past Surgical Histo: abd hernia repair; carpal tunnel; L wrist ulnar nerve; cardiac stents x7 Smoking: Non-smoker Alcohol Use: None Drug Use: None Adult General Chief Complaint Chief Complaint: LOWER EXT PAIN HPI HPI Patient is a 59-year-old male who presented to ER today for evaluation of left inner THIGH pain AND LEFT LEG PAIN for the last 2 days. Patient felt like his left foot is colder than usual. He has have pain in his left leg for more than 2 years. He denied any injury. Patient stated that he had severe PERIPHERAL ARTERIAL DISEASE, HAD STENT IN HIS RIGHT FEMORAL ARTERY ABOUT 2 WEEKS AGO. Patient denies any numbness or weakness in his leg. Patient denies any abdominal pain, no nausea vomiting. Patient denies any fever. All other ROS is negative unless otherwise noted in HPI Review of Systems Review of Systems See above Allergies Allergies Allergies Coded Allergies Type Severity Reaction Last Updated Verified No Known Drug Allergies 07/30/19 No Physical Exam Physical Exam See above Constitutional: Well developed, well nourished, no acute distress, non-toxic appearance. [] HENT: Normocephalic, atraumatic, bilateral external ears normal, oropharynx moist, no oral exudates, nose normal. [] Eyes: PERRLA, EOMI, conjunctiva normal, no discharge. [] Neck: Normal range of motion, no tenderness, supple, no stridor. [] Cardiovascular:Heart rate regular rhythm, no murmur [] Lungs & Thorax: Bilateral breath sounds clear to auscultation [] Abdomen: Bowel sounds normal, soft, no tenderness, no masses, no pulsatile ma sses. [] Skin: Warm, dry, no erythema, no rash. [] Back: No tenderness, no CVA tenderness. [] Extremities: There is no swelling in his left thigh, no swelling or tenderness to palpation on the left, no redness or rash, no clinical evidence of DVT. There is strong left femoral pulse, this weak but palpable left dorsalis pedis pulse. Left left lower extremity, left foot was the same color as the right side, warm to touch. NO CYANOSIS. PATIENT CAN MOVE ALL HIS TOES WITHOUT ANY PROBLEM, NO FOCAL NEUROVASCULAR DEFICIT. NO EVIDENCE OF COMPARTMENT SYNDROME. Neurologic: Alert and oriented X 3, normal motor function, normal sensory function, no focal deficits noted. [] Psychologic: Affect normal, judgement normal, mood normal. [] EKG EKG [] Radiology/Procedures Radiology/Procedures [][address] [id number] IMAGING REPORT Signed PATIENT: MANUEL DUMAS AACCOUNT: [id number] : 1960 LOCATION: ER AGE: 59 SEX: F EXAM STATUS: REG ER ORD. PHYSICIAN: ALESHA CLARKE DO REASON: LEFT THIGH PAIN FOR 2 DAYS, HX OF PAD PROCEDURE: ARTERIAL STUDY LOWER EXT LEFT ARTERIAL STUDY LOWER EXT LEFT 08/16/2019 11:53 AM Clinical Information: Left thigh pain for 2 days with history of peripheral artery disease. Comparison: None. Technique: Multiple grayscale, color Doppler, and spectral Doppler sonographic images of the lower extremity arterial structures were obtained. Findings: Left: Triphasic waveforms identified involving the common femoral artery, deep femoral artery, mid and distal superficial femoral artery. Biphasic waveforms identified throughout the rest of the left lower extremity arterial system. Calcified plaque is noted throughout the left lower extremity. Common femoral artery: 92 cm/s Profunda artery: 135 cm/s Superficial femoral artery, proximal: 106 cm/s Superficial femoral artery, mid: 153 cm/s Superficial femoral artery, distal: 135 cm/s Popliteal artery: 51-81 cm/s Posterior tibial artery: 66/71 cm/s Anterior tibial artery: 66 cm/s Peroneal artery: 45 cm/s Dorsalis pedis artery: 39 cm/s IMPRESSION: Calcified and noncalcified atheromatous plaque is identified at the left lower extremity without a focal high-grade stenosis or vascular occlusion involving the left lower extremity. Electronically signed by: Juanjo Gilmore MD (08/16/2019 1:08 PM) [id number] DICTATED AND SIGNED BY: JUANJO GILMORE MD DATE: 08/16/19 1308 CC: ALESHA CLARKE DO; TREY MATTSON MD ~ Course & Med Decision Making Course & Med Decision Making Pertinent Labs and Imaging studies reviewed. (See chart for details) Patient was evaluated in the ER today did not find any acute problem. Patient had history of. PERIPHERAL ARTERIAL DISEASE, he will need to follow with his vascular surgeon for further evaluation. Patient had no side or symptom of ischemia IN LEFT LEG AT THIS TIME. No CLINICAL evideNCE of DVT either. Dragon Disclaimer Dragon Disclaimer This electronic medical record was generated, in whole or in part, using a voice recognition dictation system. Departure Departure: Impression: Primary Impression: Leg pain, left Disposition: 01 HOME, SELF-CARE Condition: STABLE Referrals: TREY MATTSON MD (PCP) FOLLOW UP WITH YOUR DOCTOR NEXT WEEK . Patient Instructions: Leg Cramps ALESHA CLARKE DO Aug 16, 2019 13:22
== END 2019-08-16 13:30 | disposition home or self-care (01) ==
LOC: ER 11:00
DX: M79.605 Pain in left leg (principal); M79.652 Pain in left thigh; I25.10 Atherosclerotic heart disease of native coronary artery without angina pectoris; E11.9 Type 2 diabetes mellitus without complications; I10 Essential (primary) hypertension; E03.9 Hypothyroidism, unspecified; Z86.73 Personal history of transient ischemic attack (TIA), and cerebral infarction without residual deficits
CPT/HCPCS: 93923; 99284-25

== ENCOUNTER 2019-11-15 10:40 | Emergency (ER) | payer OTHER ==
[~2019-11-15] VITALS: Ht 182.9 cm; Wt 109.6 kg
[2019-11-15 11:14] LABS: BASO % 0 % (0-3); EOS # 0.1 x10^3/uL (0.0-0.7); EOS % 1 % (0-3); HEMATOCRIT 36.3 % (36.0-47.0); HEMOGLOBIN 11.5 g/dL (12.0-15.5); LYMPH # 1.6 x10^3/uL (1.0-4.8); LYMPH % 25 % (24-48); MEAN CORPUSCULAR HEMOGLOBIN 25 pg (25-35); MEAN CORPUSCULAR HGB CONC 32 g/dL (31-37); MEAN CORPUSCULAR VOLUME 78 fL (79-100); MONO # 0.6 x10^3/uL (0.0-1.1); MONO % 9 % (0-9); NEUT # 4.4 x10^3uL (1.8-7.7); NEUT % 65 % (31-73); PLATELET COUNT 361 x10^3/uL (140-400); RED BLOOD COUNT 4.68 x10^6/uL (3.50-5.40); RED CELL DISTRIBUTION WIDTH 16.5 % (11.5-14.5); WHITE BLOOD COUNT 6.7 x10^3/uL (4.0-11.0)
[2019-11-15] MEDS ORDERED: IV NORMAL SALINE 1,000ML 1,000 ML IV ONE (11:15)
[2019-11-15] MEDS ORDERED: ONDANSETRON PF 4 MG/2 ML VIAL. ONE (11:16)
[2019-11-15 11:18] LABS: CALCIUM 9.6 mg/dL (8.5-10.1); CREATININE 1.6 mg/dL (0.6-1.0); GFR 33.1; POTASSIUM 4.4 mmol/L (3.5-5.1)
--- NOTE | 2019-11-15 11:18 | PHYS DOC ---
Past History Past Medical History: CAD, Diabetes, High Cholesterol, Hypertension, Hypothyroid Past Surgical History: Other Additional Past Surgical Histo: STENTS IN LEG AND HEART, KNEE, SHOULDER, CARPEL TUNNEL, LEFT WRIST SURGERY Smoking: Non-smoker Alcohol Use: None Drug Use: None Adult General Chief Complaint Chief Complaint: ABDOMINAL PAIN HPI HPI 59-year-old male presents with right-sided abdominal pain and coughing up bile/coffee-ground looking material. The patient states that this started this morning. He has been constipated lately with only hard zuleyma for stool. No black stool. No history of GI bleed. The patient was started on Xarelto 2 months ago. He is not on NSAIDs daily. The patient describes the abdominal pain as a deep cramping sensation. It is moderate in intensity. He denies fever chills. He has not had this before. Review of Systems Review of Systems Constitutional: Denies fever or chills [] Eyes: Denies change in visual acuity, redness, or eye pain [] HENT: Denies nasal congestion or sore throat [] Respiratory: Denies cough or shortness of breath [] Cardiovascular: No additional information not addressed in HPI [] GI: Right-sided abdominal pain, nausea, vomiting, constipation. [] : Denies dysuria or hematuria [] Musculoskeletal: Denies back pain or joint pain [] Integument: Denies rash or skin lesions [] Neurologic: Denies headache, focal weakness or sensory changes [] Endocrine: Denies polyuria or polydipsia [] All other systems were reviewed and found to be within normal limits, except as documented in this note. Current Medications Current Medications Current Medications Medications (Trade) Dose Ordered Sig/Manuel Start Time Stop Time Status Last Admin Dose Admin Famotidine (Pepcid Vial) 20 mg 1X ONCE 11/15/19 11:30 11/15/19 11:31 Pantoprazole Sodium (Protonix Vial) 40 mg 1X ONCE 11/15/19 11:30 11/15/19 11:31 Sodium Chloride 1,000 ml @ 1,000 mls/hr 1X ONCE 11/15/19 11:15 11/15/19 12:14 Allergies Allergies Allergies Coded Allergies Type Severity Reaction Last Updated Verified No Known Drug Allergies 07/30/19 No Physical Exam Physical Exam Constitutional: Well developed, obese, well nourished, no acute distress, non- toxic appearance. [] HENT: Normocephalic, atraumatic, bilateral external ears normal, oropharynx moist, no oral exudates, nose normal. [] Eyes: PERRLA, EOMI, conjunctiva normal, no discharge. [] Neck: Normal range of motion, no tenderness, supple, no stridor. [] Cardiovascular: Heart rate regular rhythm, no murmur [] Lungs & Thorax: Bilateral breath sounds clear to auscultation [] Abdomen: Bowel sounds normal, soft, right upper quadrant and right lower quadrant tenderness, no masses, no pulsatile masses. [] Skin: Warm, dry, no erythema, no rash. [] Back: No tenderness, no CVA tenderness. [] Extremities: No tenderness, no cyanosis, no clubbing, ROM intact, no edema. [] Neurologic: Alert and oriented X 3, normal motor function, normal sensory function, no focal deficits noted. [] Psychologic: Affect normal, judgement normal, mood normal. [] Current Patient Data Vital Signs Vital Signs Date Time Temp Pulse Resp B/P (MAP) Pulse Ox O2 Delivery O2 Flow Rate FiO2 11/15/19 10:52 97.6 71 18 154/97 (116) 98 Room Air EKG EKG [] Radiology/Procedures Radiology/Procedures [] Impressions: Examination: CT ABDOMEN PELVIS WO CONTRAST History: Right lower quadrant abdominal pain Comparison/Correlation: 05/22/2019 CTA of the chest with contrast Findings: Axial images of the abdomen and pelvis were obtained without contrast. Sagittal and coronal reformatted images were provided. Small sliding hiatal hernia is present. Right costophrenic sulcus calcified granulomatous involvement noted. Marked fatty infiltration of the liver is present. Spleen is unremarkable. Pancreas is normal. Right adrenal gland nodule measuring 1.4 cm x 1 cm is present with low-attenuation as would be expected of a benign adenoma. Smaller similar-appearing left adrenal gland nodule also is present. There are no radiopaque collecting system calculi or evidence of collecting system obstruction. Urinary bladder is unremarkable. Appendix is normal. Moderate quantity of stool in colon is present. No ascites or pelvic free fluid. No enlarged abdominal or pelvic lymph nodes. Bilateral common femoral arterial stents are present. Subperitoneal fluid collection is present extending from the upper abdomen to just inferior to the umbilicus and this measures 21 cm longitudinal by 2 cm anteroposterior by 11 cm transverse transverse of the upper abdominal level. Suture material along the flexion superiorly noted. Impression: Small sliding hiatal hernia. Appendix is normal. No suspicious inflammatory processes. No radiodense collecting system calculi. No collecting system obstruction. Marked fatty infiltration of the liver. Subperitoneal fluid collection along the abdominal wall presumably related to old seroma is again seen. PQRS Compliance Statement: One or more of the following individualized dose reduction techniques were utilized for this examination: 1. Automated exposure control 2. Adjustment of the mA and/or kV according to patient size 3. Use of iterative reconstruction technique Electronically signed by: Mandeep Henley MD (11/15/2019 11:58 AM) [id number] DICTATED AND SIGNED BY: MANDEEP HENLEY MD DATE: 11/15/19 1158 CC: RUI WILLIAM DO; TREY MATTSON MD ~ Course & Med Decision Making Course & Med Decision Making Pertinent Labs and Imaging studies reviewed. (See chart for details) The patient's labs are unremarkable. His mild anemia appears to be similar to baseline. Him concerned that the patient might have a GI bleed. I have treated him with Protonix. I will discharge him with a prescription for Protonix 40 mg daily. I have advised that he follow-up with his doctor the prescribed Xarelto to discuss options and strategy. The patient had no vomiting in the ED. He does not need to be admitted. He is stable for discharge at this time. [] Dragon Disclaimer Dragon Disclaimer This electronic medical record was generated, in whole or in part, using a voice recognition dictation system. Departure Departure: Impression: Primary Impression: GERD (gastroesophageal reflux disease) Disposition: HOME, SELF-CARE Condition: STABLE Referrals: TREY MATTSON MD (PCP) Patient Instructions: Gastroesophageal Reflux Disease, Adult, [id number] Scripts Pantoprazole Sodium (PROTONIX) 40 Mg Tablet. 1 TAB PO DAILY for GERD, #30 TAB 0 Refills Prov: RUI WILLIAM DO 11/15/19 Problem Qualifiers Primary Impression: GERD (gastroesophageal reflux disease) Esophagitis presence: without esophagitis Qualified Codes: K21.9 - Gastro- esophageal reflux disease without esophagitis RUI WILLIAM DO Nov 15, 2019 11:17
[2019-11-15 11:24] LABS: ALBUMIN 3.8 g/dL (3.4-5.0); ALBUMIN/GLOBULIN RATIO 1.1 (1.0-1.7); TOTAL BILIRUBIN 0.2 mg/dL (0.2-1.0); TOTAL PROTEIN 7.3 g/dL (6.4-8.2)
[2019-11-15] MEDS ORDERED: IOHEXOL 300 MG/ML 75 ML VIAL. IV ONE (11:30)
[2019-11-15] MEDS ORDERED: PANTOPRAZOLE IV 40 MG VIAL. IVP ONE (11:30)
[2019-11-15] MEDS ORDERED: FAMOTIDINE 20 MG/2 ML VIAL IVP ONE (11:30)
[2019-11-15] MEDS ORDERED: CONTRAST GIVEN MC PRN (11:30)
[2019-11-15] MEDS ORDERED: ONDANSETRON PF 4 MG/2 ML VIAL. IVP ONE (11:30)
--- NOTE | 2019-11-15 12:01 | RAD ---
Examination: CT ABDOMEN PELVIS WO CONTRAST History: Right lower quadrant abdominal pain Comparison/Correlation: 05/22/2019 CTA of the chest with contrast Findings: Axial images of the abdomen and pelvis were obtained without contrast. Sagittal and coronal reformatted images were provided. Small sliding hiatal hernia is present. Right costophrenic sulcus calcified granulomatous involvement noted. Marked fatty infiltration of the liver is present. Spleen is unremarkable. Pancreas is normal. Right adrenal gland nodule measuring 1.4 cm x 1 cm is present with low-attenuation as would be expected of a benign adenoma. Smaller similar-appearing left adrenal gland nodule also is present. There are no radiopaque collecting system calculi or evidence of collecting system obstruction. Urinary bladder is unremarkable. Appendix is normal. Moderate quantity of stool in colon is present. No ascites or pelvic free fluid. No enlarged abdominal or pelvic lymph nodes. Bilateral common femoral arterial stents are present. Subperitoneal fluid collection is present extending from the upper abdomen to just inferior to the umbilicus and this measures 21 cm longitudinal by 2 cm anteroposterior by 11 cm transverse transverse of the upper abdominal level. Suture material along the flexion superiorly noted. Impression: Small sliding hiatal hernia. Appendix is normal. No suspicious inflammatory processes. No radiodense collecting system calculi. No collecting system obstruction. Marked fatty infiltration of the liver. Subperitoneal fluid collection along the abdominal wall presumably related to old seroma is again seen. PQRS Compliance Statement: One or more of the following individualized dose reduction techniques were utilized for this examination: 1. Automated exposure control 2. Adjustment of the mA and/or kV according to patient size 3. Use of iterative reconstruction technique Electronically signed by: Mandeep Mistry MD (11/15/2019 11:58 AM) [id number]
[2019-11-15] MEDS ORDERED: PANT40TA3 PO (12:44)
[2019-11-15] MEDS ORDERED: ONDA4TAB12 PO (12:57)
[2019-11-15 13:02] VITALS: BP 155/103
== END 2019-11-15 13:02 | disposition home or self-care (01) ==
LOC: ER 10:40 → EDSEX 10:40 → ER 13:02
DX: K21.9 Gastro-esophageal reflux disease without esophagitis (principal); R11.2 Nausea with vomiting, unspecified; K59.00 Constipation, unspecified; I25.10 Atherosclerotic heart disease of native coronary artery without angina pectoris; E11.9 Type 2 diabetes mellitus without complications; E78.00 Pure hypercholesterolemia, unspecified; I10 Essential (primary) hypertension; E03.9 Hypothyroidism, unspecified
CPT/HCPCS: 36415; 74176; 80053; 83690; 85025; 96361; 96374; 96375; 99284; C9113; J2405; J3490; J7030

== ENCOUNTER 2019-11-27 14:08 | Observation (INO) | payer OTHER ==
[~2019-11-27] VITALS: Ht 182.9 cm; Wt 109.0 kg
[~2019-11-27 14:08] MED LIST changes: +METOPROLOL SUCC 24HR ER 50 MG TAB.ER.24H. PO ONE; +ONDA4TAB12 PO; +PANT40TA3 PO
--- NOTE | 2019-11-27 14:20 | PHYS DOC ---
Past History Past Medical History: CAD, Diabetes, High Cholesterol, Hypertension, Hypothyroid Past Surgical History: Other Additional Past Surgical Histo: STENTS IN LEG AND HEART, KNEE, SHOULDER, CARPEL TUNNEL, LEFT WRIST SURGERY Smoking: Non-smoker Alcohol Use: None Drug Use: None General Adult HPI: HPI: 59M with PMH of HTN, HL, DM, PVD, CAD on ASA/plavix, hypothyroidism, who presents for evaluation of lightheadedness upon awakening from a nap this morning at 11 AM. Associated with mild left frontotemporal headache described as dull. No aggravating or alleviating factors. Also reports mild binocular blurry vision which is more less resolved at time of my evaluation. No aggravating or alleviating factors. Took his blood pressure medication this morning including his lisinopril, amlodipine, metoprolol. Elevated blood pressure upon presentation. Review of Systems: Review of Systems: General: No fevers, chills. Eyes: No blurred vision, diplopia. ENT: No nasal congestion, sore throat. CV: No chest pain, edema. Resp: No shortness of breath, cough. GI: No abdominal pain, nausea, vomiting. : No dysuria, hematuria. Neuro: No weakness. Reports headache, lightheadedness. MSK: No myalgia, arthralgia, back pain. Skin: No acute rash, lesion. Heart Score: Risk Factors: Risk Factors: DM, Current or recent (<one month) smoker, HTN, HLP, family history of CAD, obesity. Risk Scores: Score 0 - 3: 2.5% MACE over next 6 weeks - Discharge Home Score 4 - 6: 20.3% MACE over next 6 weeks - Admit for Clinical Observation Score 7 - 10: 72.7% MACE over next 6 weeks - Early Invasive Strategies Allergies: Allergies: Allergies Coded Allergies Type Severity Reaction Last Updated Verified No Known Drug Allergies 07/30/19 No Physical Exam: PE: Gen: NAD. Head: NC/AT Eyes: No scleral icterus. No conjunctival injection. PERRL. EOMI. No inducible nystagmus. ENT: MMM. Posterior OP clear. Neck: Supple. NT. No meningismus. CV: RRR. Peripheral pulses intact. Resp: CTAB. Abd: Soft. NT. ND. MSK: No peripheral cyanosis. No edema. Neuro: A&Ox3. Strength & sensation grossly intact throughout. No dysmetria. No aphasia or dysarthria. No visual field cut. No facial asymmetry. No hemineglect. Skin: Warm. Dry. Psych: Appropriate mood & affect. EKG: EKG: EKG at 1430. Sinus rhythm. Heart rate 80. Normal intervals. Nonspecific ST-T changes. No STEMI. Interpreted by me. Radiology/Procedures: Radiology/Procedures: CT scan of the head without contrast 11/27/2019 Clinical History: Headaches and dizziness. Technique: Unenhanced, contiguous, 5 mm axial sections were obtained through the head. One or more of the following individualized dose reduction techniques were utilized for this study: 1. Automated exposure control. 2. Adjustment of the mA and/or kV according to patient size. 3. Use of iterative reconstruction technique. Findings: Comparison study is dated 10/06/2018. There is generalized parenchymal atrophy. Areas of decreased attenuation are seen within the periventricular and subcortical white matter of both cerebral hemispheres consistent with areas of small vessel ischemic disease. No acute parenchymal abnormality is seen. An old area of lacunar infarction is seen near the head of the right caudate nucleus, unchanged. No extra-axial fluid collection is noted. No skull fracture is seen. Impression: No acute intracranial abnormality is seen. Electronically signed by: Alphonse Sharp MD (11/27/2019 2:46 PM) [id number] Course & Med Decision Making: Course & Med Decision Making Pertinent Labs and Imaging studies reviewed. (See chart for details) In summary, 59-year-old male who presents for evaluation of lightheadedness upon awakening this morning at 11 AM with associated binocular blurry vision, left frontotemporal headache, feeling unsteady on his feet. No cardiorespiratory complaints. Technically, his NIH stroke score is 0 without extremity drift, sensory deficit, facial asymmetry, visual field cut, dysmetria, aphasia or dysarthria. Receiving migraine cocktail consisting of IV fluids, Reglan, Benadryl with improvement in his headache as well as blood pressure. Reports on going lightheadedness, however. Given his long-standing history of multiple comorbidities, especially multiple vasculopathies (i.e. coronary and peripheral last disease, CVA/TIA), the patient will be admitted to observation on telemetry for further management. Not suspecting SAH, pseudotumor cerebri or temporal arteritis at this time. Dragon Disclaimer: John Disclaimer: This electronic medical record was generated, in whole or in part, using a voice recognition dictation system. Departure Departure: Impression: Primary Impression: Lightheadedness Additional Impressions: Headache Blurry vision, bilateral Disposition: 01 HOME/RESIDENCE PRIOR TO ADM Admitting Physician: Britni Cooper Condition: STABLE Referrals: TREY MATTSON MD (PCP) NANCY MCCARTNEY DO Nov 27, 2019 14:20
[2019-11-27 14:47] LABS: BASO % 0 % (0-3); EOS # 0.1 x10^3/uL (0.0-0.7); EOS % 1 % (0-3); HEMATOCRIT 36.6 % (39.0-53.0); HEMOGLOBIN 11.6 g/dL (13.0-17.5); LYMPH # 1.4 x10^3/uL (1.0-4.8); LYMPH % 22 % (24-48); MEAN CORPUSCULAR HEMOGLOBIN 25 pg (25-35); MEAN CORPUSCULAR HGB CONC 32 g/dL (31-37); MEAN CORPUSCULAR VOLUME 78 fL (79-100); MONO # 0.6 x10^3/uL (0.0-1.1); MONO % 10 % (0-9); NEUT # 4.4 x10^3uL (1.8-7.7); NEUT % 68 % (31-73); PLATELET COUNT 340 x10^3/uL (140-400); RED BLOOD COUNT 4.72 x10^6/uL (4.30-5.70); WHITE BLOOD COUNT 6.6 x10^3/uL (4.0-11.0)
--- NOTE | 2019-11-27 14:50 | RAD ---
CT scan of the head without contrast 11/27/2019 Clinical History: Headaches and dizziness. Technique: Unenhanced, contiguous, 5 mm axial sections were obtained through the head. One or more of the following individualized dose reduction techniques were utilized for this study: 1. Automated exposure control. 2. Adjustment of the mA and/or kV according to patient size. 3. Use of iterative reconstruction technique. Findings: Comparison study is dated 10/06/2018. There is generalized parenchymal atrophy. Areas of decreased attenuation are seen within the periventricular and subcortical white matter of both cerebral hemispheres consistent with areas of small vessel ischemic disease. No acute parenchymal abnormality is seen. An old area of lacunar infarction is seen near the head of the right caudate nucleus, unchanged. No extra-axial fluid collection is noted. No skull fracture is seen. Impression: No acute intracranial abnormality is seen. Electronically signed by: Alphonse Sharp MD (11/27/2019 2:46 PM) [id number]
[2019-11-27] MEDS ORDERED: diphenhydrAMINE 50 MG/ML VIAL IVP ONE (15:00)
[2019-11-27] MEDS ORDERED: METOCLOPRAMIDE HCL 10 MG/2 ML VIAL. IVP ONE (15:00)
[2019-11-27] MEDS ORDERED: IV NORMAL SALINE 500ML 500 ML IV ONE (15:00)
--- NOTE | 2019-11-27 15:24 | EKG ---
[address] [address] Test Date: 2019-11-27 Test Time: 14:30:28 Pat Name: MANUEL HARDINGPABLO Department: Room: Gender: M Hat Model: : 1960 Requested By: NANCY MCCARTNEY Order Number: [id number] Reading MD: David Wilkins Measurements Intervals [place] Rate: 80 P: 41 SC: 156 QRS: -47 QRSD: 90 T: 72 QT: 368 QTc: 428 Interpretive Statements SINUS RHYTHM ABNORMAL LEFT AXIS DEVIATION Q WAVE IN LEAD III Electronically Signed On 11-28-2019 9:43:15 CDT by David Wilkins
[2019-11-27 15:25] LABS: CALCIUM 9.2 mg/dL (8.5-10.1); CREATININE 1.5 mg/dL (0.7-1.3); GFR 48.1; POTASSIUM 4.3 mmol/L (3.5-5.1)
[2019-11-27 15:31] LABS: ALBUMIN 3.9 g/dL (3.4-5.0); ALBUMIN/GLOBULIN RATIO 1.2 (1.0-1.7); MAGNESIUM 1.4 mg/dL (1.8-2.4); TOTAL BILIRUBIN 0.1 mg/dL (0.2-1.0); TOTAL PROTEIN 7.2 g/dL (6.4-8.2)
[2019-11-27] MEDS ORDERED: ONDANSETRON PF 4 MG/2 ML VIAL. IVP PRN (16:00)
[2019-11-27 17:15] VITALS: BP 170/92
[2019-11-27 17:37] VITALS: BP 147/87
[2019-11-27] MEDS ORDERED: GABA-586 PO (17:41)
[2019-11-27] MEDS ORDERED: LIRA0.6P2 SQ (17:41)
[2019-11-27] MEDS ORDERED: PSYL1PAC7 PO (17:41)
[2019-11-27] MEDS ORDERED: NITROGLYCERIN SUBLINGUAL 0.4 MG BOTTLE OF 25. SL PRN (18:00)
[2019-11-27] MEDS ORDERED: MAGNESIUM SULFATE 2GM 50 ML IV ONE (18:00)
[2019-11-27] MEDS: ACETAMINOPHEN 325 MG TABLET PO PRN (18:36)
--- NOTE | 2019-11-27 19:12 | NUR ---
Called Consult to Dr. Pelaez. Will see in am.
--- NOTE | 2019-11-27 19:13 | HP ---
ADMIT DATE: 11/27/2019 HISTORY OF PRESENT ILLNESS: The patient is a 59-year-old male patient who came to the Emergency Room complaining of lightheadedness upon awakening from a nap this morning at around 11:00 a.m. associated with mild left frontotemporal headache described as dull. No aggravating or alleviating factor. It was also by binocular blurry vision, which is less resolved by the time of arrival to the Emergency Room. He denied any tingling, numbness. Denied any weakness that localized to one side or the other. Apparently, he took all his blood pressure medication this morning including his lisinopril, amlodipine, metoprolol, but when he arrived to the Emergency Room, his blood pressure was elevated at 192/99. He was extensively investigated in the Emergency Room. His lab work showed that he has hypomagnesemia and mildly elevated serum creatinine. Blood sugar was elevated. First troponin was 0.023. He has also microcytic hypochromic anemia with hemoglobin 11.6, hematocrit 36; however, his white cell count and platelets are normal. His CT scan of the head was unremarkable, showed there is generalized parenchymal atrophy, areas of decreased attenuation are seen within the periventricular and subcortical white matter of both cerebral hemispheres consistent with areas of small vessel ischemic disease, no acute parenchymal abnormality seen and old area of lacunar infarction is seen near the head of the right caudate nucleus, unchanged. No extraaxial fluid collection is noted. No skull fracture is seen. The patient was basically admitted for further evaluation. He has received a migraine cocktail consistent with IV fluids, Reglan, Benadryl with improvement in his headache as well as blood pressure. The patient was admitted on telemetry for observation and to consult the weight and test bar clerk as well as the neurologist. PAST MEDICAL HISTORY: Significant for a multitude of medical problems including coronary artery disease with previous stents to both left anterior descending and right coronary artery. In fact, he has a total of 7 stents to his heart. He also had myocardial infarction in 2016. He is also known to have severe peripheral vascular disease, status post stenting to his left femoral artery and right femoral artery. In fact, he has 2 stents to his right femoral artery and one to the left. He is known to have hypertension, hyperlipidemia, type 2 diabetes, hypothyroidism. He had a history of cerebrovascular accident x 2 with residual right lower extremity weakness, had a total of TIAs with vertigo and unsteady gait. PAST SURGICAL HISTORY: Significant for carpal tunnel release on the right side, right ulnar nerve transposition, left knee arthroscopic surgery, left wrist fracture, status post open reduction and internal fixation and bone grafting. He had surgery to his left knee because of recurrent avulsion of his posterior tibial tendon and right shoulder arthroscopic surgery, obviously he has 7 stents to his heart and 3 stents to his right lower extremity. ALLERGIES: He has no known drug allergies. FAMILY HISTORY: Positive for premature coronary artery disease and kidney disease. SOCIAL HISTORY: The patient lives at home with his . He is compliant with his diet and medication regimen. He quit smoking in 2018. He denies any drinking alcohol or use any recreational drugs. REVIEW OF SYSTEMS: As per history of present illness. MEDICATIONS: He is currently on following medication: He is on Plavix 75 mg once a day, Ranexa 1000 mg twice a day, fenofibrate 160 mg once a day, atorvastatin calcium 80 mg p.o. at bedtime, isosorbide mononitrate 60 mg daily, nitroglycerin 0.4 mg sublingually every 5 minutes x 3, metoprolol succinate 100 mg twice a day, amlodipine besylate 10 mg daily, losartan potassium 100 mg daily, aspirin 81 mg chewable tablet once a day, gabapentin 800 mg 4 times a day, sertraline 50 mg once a day, ondansetron 4 mg every 6-8 hours, omeprazole 20 mg daily, Protonix 40 mg daily, metformin 1000 mg extended release twice a day. He is on Lantus insulin 40 units at bedtime and glimepiride 2 mg twice a day, levothyroxine sodium 150 mcg once a day. PHYSICAL EXAMINATION: GENERAL: On arrival to the Emergency Room, the patient looked well-developed, well-nourished, in no apparent distress. He was slightly pale, but no jaundice, cyanosis or thyromegaly. No jugular venous distention. No lower limb edema. VITAL SIGNS: His heart rate was 79, blood pressure was 192/99, temperature was 98, respiratory rate 20, and oxygen saturation was 99% on room air. HEAD, EYES, EARS, NOSE AND THROAT: Showed normocephalic, atraumatic. NECK: Supple. HEART: Showed normal first and second sounds. No gallop, rub or murmur. CHEST: Showed central trachea, equal bilateral expansion, air entry, vesicular sounds. No crepitation or rhonchi. ABDOMEN: Distended, soft, nontender. NEUROLOGIC: He was alert, oriented x 3. There was no obvious lateralizing sign. He has no aphasia or dysarthria. No visual field deficit. No facial asymmetry or hemineglect. LABORATORY DATA: His EKG showed that he was in sinus rhythm at a rate of 80 beats per minute with no specific ST-T changes, no STEMI. His CT scan of the head showed there is generalized parenchymal atrophy, areas of decreased attenuation are seen within the periventricular and subcortical white matter of both cerebral hemispheres consistent with areas of small vessel ischemic disease, no acute parenchymal abnormality seen and old area of lacunar infarction is seen near the head of the right caudate nucleus, unchanged. No extraaxial fluid collection is noted. No skull fracture is seen. ASSESSMENT AND PLAN: In summary, this is a 59-year-old male patient who was brought to the Emergency Room with lightheadedness associated with blurry vision and left frontotemporal headache, feeling unsteady on his feet. His [employer] [place] [employer] stroke score was only 0 without extremity drift, sensory deficit or facial asymmetry, visual field cut or dysmetria, aphasia or dysarthria. He was treated with normal saline, diphenhydramine, metoclopramide and his headache has resolved. By the time he was transferred to the floor, his blood pressure dropped down to 170/92 and by the time I saw him on the floor, his blood pressure was down to 147/87. My plan is to reconcile all his medication and continue to monitor his vital signs. We will consult the weight and test bar clerk as well as the neurologist and do 2 more sets of cardiac enzymes. Although the patient himself denied any chest pain, I will also replenish his magnesium and consult physical and occupational therapy. BRAYDEN PATRICK MD DR: JOSE E/eladio JOB#: [id number] / [id number]
[2019-11-27] MEDS ORDERED: PSYLLIUM SEED (WITH SUGAR) PACKET. PO PRN (19:15)
[2019-11-27 19:47] VITALS: BP 117/73
[2019-11-27] MEDS ORDERED: RANOLAZINE 500 MG TAB.ER.12H PO ONE (21:00)
[2019-11-27] MEDS ORDERED: ATORVASTATIN CALCIUM 20 MG TABLET PO SCH (21:00)
[2019-11-27] MEDS ORDERED: INSULIN GLARGINE SYRINGE. SQ SCH (21:00)
[2019-11-27] MEDS ORDERED: NON FORMULARY ITEM (Liraglutide (Victoza 3-Pak) 1.8 MG) SQ SCH (21:00)
[2019-11-27] MEDS: GLIMEPIRIDE 2 MG TABLET PO SCH (21:25)
[2019-11-27] MEDS: GABAPENTIN 300 MG CAPSULE. PO SCH (21:25)
[2019-11-27] MEDS: METOPROLOL SUCC 24HR ER 50 MG TAB.ER.24H. PO SCH (21:26)
[2019-11-27] MEDS: RANOLAZINE 500 MG TAB.ER.12H PO SCH (21:26)
[2019-11-27] MEDS ORDERED: ATORVASTATIN CALCIUM 20 MG TABLET ONE (21:30)
[2019-11-27 23:11] VITALS: BP 135/83
[2019-11-28 05:46] VITALS: BP 153/85
[2019-11-28] MEDS ORDERED: LEVOTHYROXINE 150 MCG TABLET PO SCH (06:00)
[2019-11-28 06:01] LABS: CALCIUM 8.7 mg/dL (8.5-10.1); CREATININE 1.4 mg/dL (0.7-1.3); GFR 52.1; MAGNESIUM 1.9 mg/dL (1.8-2.4); POTASSIUM 4.4 mmol/L (3.5-5.1)
[2019-11-28] MEDS: GABAPENTIN 300 MG CAPSULE. PO SCH (07:44)
[2019-11-28] MEDS: GLIMEPIRIDE 2 MG TABLET PO SCH (07:44)
[2019-11-28] MEDS: METOPROLOL SUCC 24HR ER 50 MG TAB.ER.24H. PO SCH (07:46)
[2019-11-28] MEDS: RANOLAZINE 500 MG TAB.ER.12H PO SCH (07:47)
[2019-11-28] MEDS: ACETAMINOPHEN 325 MG TABLET PO PRN (07:47)
[2019-11-28 07:53] VITALS: BP 153/85
[2019-11-28] MEDS ORDERED: metFORMIN XR 500 MG TAB.ER.24H PO SCH (08:00)
[2019-11-28] MEDS ORDERED: LOSARTAN 50 MG TABLET. PO SCH (09:00)
[2019-11-28] MEDS ORDERED: NON FORMULARY ITEM (Omeprazole 1 TAB) PO SCH (09:00)
[2019-11-28] MEDS ORDERED: SERTRALINE 50 MG TABLET. PO SCH (09:00)
[2019-11-28] MEDS ORDERED: RANOLAZINE 500 MG TAB.ER.12H PO ONE (09:00)
[2019-11-28] MEDS ORDERED: ISOSORBIDE MONONITRATE ER 30 MG TAB.ER.24H PO ONE (09:00)
[2019-11-28] MEDS ORDERED: PANTOPRAZOLE 40 MG TABLET. PO SCH (09:00)
[2019-11-28] MEDS ORDERED: FENOFIBRATE NANOCRYSTALLIZED 145 MG TABLET PO SCH (09:00)
[2019-11-28] MEDS ORDERED: ASPIRIN CHEWABLE 81 MG TABLET. PO SCH (09:00)
[2019-11-28] MEDS ORDERED: ISOSORBIDE MONONITRATE ER 30 MG TAB.ER.24H PO SCH (09:00)
[2019-11-28] MEDS ORDERED: METOPROLOL SUCC 24HR ER 50 MG TAB.ER.24H. PO ONE (09:00)
[2019-11-28] MEDS ORDERED: amLODIPine BESYLATE 10 MG TABLET PO SCH (09:00)
[2019-11-28] MEDS ORDERED: CLOPIDOGREL BISULFATE 75 MG TABLET PO SCH (09:00)
[2019-11-28] MEDS ORDERED: LOSARTAN 50 MG TABLET. ONE (09:00)
--- NOTE | 2019-11-28 10:21 | PN ---
DATE: 11/28/2019 ATTENDING PHYSICIAN: Britni Cooper MD CHIEF COMPLAINT: Headaches and dizziness. SUBJECTIVE: The patient was admitted yesterday with new onset of headache, dizziness. He has had 2 previous TIAs; one resulting in treatment with a tissue plasminogen activator 2 years ago. He also has 7 stents in his heart and he has had peripheral vascular disease. 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 He had been on Xarelto and Plavix. The Xarelto was stopped because of potential GI bleed. This was stopped 2 weeks ago. The headaches are more musculoskeletal in nature, but the dizziness and other neurologic symptoms are certain consistent with TIA symptoms. This morning, his headache is localized to the temporal occipital area with numerous trigger points in his neck. OBJECTIVE FINDINGS: VITAL SIGNS: Blood pressure today is 153/85, his pulse is 62 and regular. He was afebrile. HEENT: Head is without trauma. Pupils are reactive. Sclerae are nonicteric. The oropharynx is clear. NECK: Supple, no bruits identified. LUNGS: Otherwise clear. CARDIOVASCULAR: Showed regular heart tones. No gallops. Peripheral pulses are palpable and full. ABDOMEN: Soft, scaphoid, nontender, no organomegaly. Bowel sounds are hypoactive. EXTREMITIES: Showed no cyanosis or edema. NEUROLOGIC: Focally intact. Speech is fluent. LABORATORY DATA: The troponin level was measured at 0.19 and nonischemic. The electrolytes showed stable BUN and creatinine. Creatinine is 1.4 mg/dL. Nonfasting blood sugar is 168. ASSESSMENT: 1. A 59-year-old gentleman with known peripheral vascular disease. He had vague symptoms consistent with transient ischemic attack. 2. Coronary artery disease with history of 7 stents. 3. Previous history of 2 transient ischemic attacks; one episode resulting in use of TPA. 4. Essential hypertension. 5. Type 2 diabetes. 6. Angina pectoris by history. 7. Known coronary artery disease. 8. Mild renal insufficiency. PLAN: 1. Continue home meds as ordered. 2. History indicates that he was on Plavix, which was stopped 2 weeks ago. 3. Await Neurology consultation. 4. Cardiology evaluation. 5. The question is, should he be restarted back on his factor Xa inhibitor. VIBHA SANTOS MD DR: JAVIER/eladio JOB#: [id number] / [id number]
--- NOTE | 2019-11-28 12:28 | DS ---
DATE OF DISCHARGE: 11/28/2019 ATTENDING PHYSICIAN: Britni Cooper MD FINAL DISCHARGE DIAGNOSES: 1. Transient ischemic attack, resolved. 2. Known peripheral vascular disease. 3. Known coronary artery disease. 4. Musculoskeletal tension headaches. 5. Previous history of 2 transient ischemic attacks. 6. Essential hypertension. 7. Type 2 diabetes. 8. Angina pectoris. 9. Coronary artery disease. 10. Mild renal insufficiency. HISTORY AND PHYSICAL: This 59-year-old gentleman with known vascular disease, presented with headaches, dizziness and symptoms similar to previous TIAs. He was admitted for further treatment and evaluation. PHYSICAL EXAMINATION: Please see the dictated note. PERTINENT LABORATORY AND X-RAY STUDIES: Hemoglobin maintained 11.6 g/dL, white count 6600. The chemistry panel showed a creatinine of 1.4 mg/dL, nonfasting blood sugar 137. Electrolytes within normal range. IMAGING STUDIES: The patient had a CT scan of the head, which showed no acute intracranial abnormalities, bleed or attenuation abnormalities. There is an old area of lacunar infarct at the head of the right caudate nucleus, unchanged. COURSE IN THE HOSPITAL: The patient was admitted. He was monitored. He got better. Dr. Pelaez saw him in consultation for Neurology evaluation, his recommendation is on the chart. We will continue his home meds. For now, we will hold off starting him back on his Xarelto. On the second hospital day, vital signs are stable. Symptoms improved. He was wanting to get out of the hospital. Therefore, he was discharged home with no changes on his medication that include the following: He should continue his aspirin and Plavix regimen along with his Ranexa, amlodipine, Lipitor, TriCor, Neurontin, Amaryl, Lantus, Imdur, Synthroid, losartan, metformin, metoprolol, Protonix, and Zoloft, doses unchanged. He will followup with his PCP and with Dr. Pelaez. He was discharged from our hospital in stable condition with explicit instructions on followup care. Total discharge time spent 38 minutes. VIBHA SANTOS MD DR: JAVIER/eladio JOB#: [id number] / [id number]
--- NOTE | 2019-11-28 12:30 | NUR ---
NURSING NOTE DISCHARGE PATIENT DISCHARGED HOME VIA AMBULATION ACCOMPANIED BY SELF. WRITTEN AND VERBAL DISCHARGE NOTES GIVEN TO PATIENT. NO SCRIPTS GIVEN. PATIENT IS TO FOLLOW UP WITH PRIMARY CARE AND NEUROLOGY OUTPATIENT. NO COMPLICATIONS.
== END 2019-11-28 12:10 | disposition home or self-care (01) ==
LOC: ER 14:08 → 1 SOUTH 15:51 → UNDOADMOB 15:51
PROVIDERS: ADMIT Internal Medicine; ATTEND Internal Medicine
DX: R42 Dizziness and giddiness (principal); G44.209 Tension-type headache, unspecified, not intractable; I25.2 Old myocardial infarction; I25.119 Atherosclerotic heart disease of native coronary artery with unspecified angina pectoris; I10 Essential (primary) hypertension; E83.42 Hypomagnesemia; E78.5 Hyperlipidemia, unspecified; D50.9 Iron deficiency anemia, unspecified; E03.9 Hypothyroidism, unspecified; E11.65 Type 2 diabetes mellitus with hyperglycemia; Z79.01 Long term (current) use of anticoagulants; Z86.73 Personal history of transient ischemic attack (TIA), and cerebral infarction without residual deficits; Z87.891 Personal history of nicotine dependence; Z95.5 Presence of coronary angioplasty implant and graft; Z95.820 Peripheral vascular angioplasty status with implants and grafts; Z79.4 Long term (current) use of insulin
CPT/HCPCS: 36415; 70450; 80048; 80053; 82947; 83735; 84484; 85025; 93005; 96361; 96365; 96366; 96372; 96375; 97110; 97116; 97162; 97166; 99285; G0378; G0379; J1200; J1815; J2765; J3475; J7040

== ENCOUNTER → 2019-12-21 | Outpatient (CLI) | payer OTHER ==
[2019-11-28 07:53] VITALS: BP 153/85
[~2019-12-21] MED LIST changes: +GABA-586 PO; +LIRA0.6P2 SQ; -METOPROLOL SUCC 24HR ER 50 MG TAB.ER.24H. PO ONE; +NEO/5DRO5 EACH EAR; +PSYL1PAC7 PO
== END | disposition home or self-care (01) ==
LOC: LAB 07:41
PROVIDERS: ATTEND Registered Nurse
DX: Z01.818 Encounter for other preprocedural examination (principal); Z11.59 Encounter for screening for other viral diseases
CPT/HCPCS: 87635

== ENCOUNTER → 2019-12-24 | Day surgery (SDC) | payer OTHER ==
[~2019-12-24] MED LIST changes: +ACETAMINOPHEN 325 MG TABLET PO ONE; +ACETAMINOPHEN 500 MG TABLET PO ONE; +EPINEPHrine 30 MG/30 ML VIAL ONE; +EPINEPHrine NASAL 30 MG/30 ML BOTTLE TP ONE; +IPRATRPIUM/ALBUTEROL 0.5/2.5MG 3 ML NEBU. NEB PRN; +IV RINGERS SOLUTION,LACTATED 1,000 ML IV SCH; +LIDOCAINE 1% PF 2 ML VIAL. ONE; +MIDAZOLAM HCL PF 2 MG/2 ML VIAL. IV ONE; +NEO/POLYMYX/DEXAMETH OPHTH SUSPENSION 5ML BOTTLE. AD ONE; +NEO/POLYMYX/DEXAMETH OPHTH SUSPENSION 5ML BOTTLE. OU PRN; +ONDANSETRON PF 4 MG/2 ML VIAL. IV PRN; +OXYMETAZOLINE 0.05% NASAL SPRAY 30ML BOTTLE. NS ONE; +PROPOFOL 10,000 MCG/ML (20ML) VIAL IV ONE; +ceFAZolin SODIUM 1 GM VIAL ONE
--- NOTE | 2019-12-24 09:42 | OP ---
DATE OF SURGERY: PREOPERATIVE DIAGNOSIS: Bilateral serous otitis media with a conductive hearing loss. POSTOPERATIVE DIAGNOSIS: Bilateral serous otitis media with a conductive hearing loss. OPERATION: Bilateral myringotomy with T-tube ventilation tubes installed. ANESTHESIA: General anesthetic. BLOOD LOSS: Minimal. DESCRIPTION OF PROCEDURE: The patient was brought to the operating room and placed on the operating table in a supine position. He was given a general anesthetic and anesthesia was maintained. The left ear was approached first. The microscope was brought into position. The external canal was cleaned of a small amount of cerumen. The eardrum was examined through a speculum and noted to be retracted, thickened and of yellow color. A transverse incision was created and thick middle ear effusion was extracted using a #5 and #7 suction. Bleeding was sufficient enough to obscure the incision site. Topical adrenaline was placed in the ear canal and a brief moment of observation allowed. The residual blood was then removed and T-tube placement was then accomplished by placing one flange in first and then followed by the 2nd flange and positioning the tube in an appropriate location. Attention was then given to the right ear where in a similar fashion the ear canal was cleaned of small amounts of cerumen. The eardrum presented similar to the opposite ear with a thickness of the tympanic membrane retraction, yellow color and middle ear effusion. An incision was then made with a myringotomy knife and fluid was extracted, which had a similar characteristic to the opposite ear but thinner removed sufficiently with a #5 suction after which the T ventilation tube was inserted, one flange at a time and positioned appropriately. Bleeding was very minimal. After that, Ciprodex eardrops were placed in the ear canal and cotton placed in the ear canal opening. The left ear was then reexamined to assure that bleeding had not occurred to obstruct the tube. It was found that bleeding was minimal. The tube was not obstructed and therefore Ciprodex eardrops were placed in the ear canal. Cotton placed in the ear canal opening and the procedure was completed. The patient was then recovered from his anesthesia and taken to the recovery room in stable condition. MAURICE FARRIS DO DR: LEXIS/eladio JOB#: [id number] / [id number]
[2019-12-24 10:07] VITALS: BP 111/73
== END | disposition home or self-care (01) ==
LOC: SURG 07:28
PROVIDERS: ATTEND Otolaryngology
DX: H65.93 Unspecified nonsuppurative otitis media, bilateral (principal); I10 Essential (primary) hypertension; E66.9 Obesity, unspecified; E11.9 Type 2 diabetes mellitus without complications; E03.9 Hypothyroidism, unspecified; K21.9 Gastro-esophageal reflux disease without esophagitis; M19.90 Unspecified osteoarthritis, unspecified site; F32.9 Major depressive disorder, single episode, unspecified; Z98.890 Other specified postprocedural states; Z79.82 Long term (current) use of aspirin; Z79.84 Long term (current) use of oral hypoglycemic drugs; Z79.4 Long term (current) use of insulin; Z86.73 Personal history of transient ischemic attack (TIA), and cerebral infarction without residual deficits; Z79.899 Other long term (current) drug therapy; Z91.013 Allergy to seafood; Z95.5 Presence of coronary angioplasty implant and graft; Z86.718 Personal history of other venous thrombosis and embolism; Z87.891 Personal history of nicotine dependence; Z68.35 Body mass index [BMI] 35.0-35.9, adult
CPT/HCPCS: 69436; 82947; J0690; J2704; J3010; J7120

== ENCOUNTER → 2020-10-14 | Outpatient (CLI) | payer OTHER ==
[2019-12-24 10:07] VITALS: BP 111/73
[~2020-10-14] MED LIST changes: -ACETAMINOPHEN 325 MG TABLET PO ONE; -ACETAMINOPHEN 500 MG TABLET PO ONE; +AMLO-186 PO; +AMLO-187 PO; -AMLO10TA8 PO; -AMLO5TAB10 PO; -EPINEPHrine 30 MG/30 ML VIAL ONE; -EPINEPHrine NASAL 30 MG/30 ML BOTTLE TP ONE; -IPRATRPIUM/ALBUTEROL 0.5/2.5MG 3 ML NEBU. NEB PRN; -ISOS60TA2 PO; +ISOS60TA55 PO; -IV RINGERS SOLUTION,LACTATED 1,000 ML IV SCH; -LIDOCAINE 1% PF 2 ML VIAL. ONE; -LISI-334 PO; +LISI20TA18 PO; -MIDAZOLAM HCL PF 2 MG/2 ML VIAL. IV ONE; -NEO/POLYMYX/DEXAMETH OPHTH SUSPENSION 5ML BOTTLE. AD ONE; -NEO/POLYMYX/DEXAMETH OPHTH SUSPENSION 5ML BOTTLE. OU PRN; -ONDANSETRON PF 4 MG/2 ML VIAL. IV PRN; -OXYMETAZOLINE 0.05% NASAL SPRAY 30ML BOTTLE. NS ONE; -PANT40TA5 PO; +PANT40TA6 PO; -PROPOFOL 10,000 MCG/ML (20ML) VIAL IV ONE; +REGADENOSON 0.4 MG/5 ML DISP.SYRIN. IV ONE; -ceFAZolin SODIUM 1 GM VIAL ONE
--- NOTE | 2020-10-14 13:08 | RAD ---
MR#: [id number] Date of Study: 10/14/2020 Ordering Physician: JAGDISH JANSEN, Referring Physician: ARLENE SUÁREZ Tech: RT Mare (R) (N) APPROVED REPORT Test Type: Pharmacological Stress Nurse/Tech: Mirta/Alicja Test Indications: CAD Cardiac History: Diabetes, Hypertension Medications: See EHR Resting Heart Rate: 61 bpm Resting Blood Pressure: 148/75mmHg Pretest Chest Pain: No chest pain Pharm. Details Pharmacologic stress testing was performed using 0.4mg per 5ml of regadenoson given intravenously ove r 7-10 seconds. There waswas no low-level exercise performed along with the infusion Stress Symptoms Dyspnea POST EXERCISE Reason for Termination: Infusion complete Max HR: 83 bpm Max Blood Pressure: 163/77mmHg Blood Pressure response to exercise: Normal blood pressure response during stress. Heart Rate response to exercise: Increased Chest Pain: No. Arrhythmia: No. ST Change: No. INTERPRETATION Stress EKG Conclusion: Baseline EKG showed sinus rhythm. No ischemic changes at peak stress. No arr hythmias. Imaging Protocol IMAGE PROTOCOL: Rest Tc-99m/stress Tc-99m 1 day Rest: Stress: Viability: Radiopharm.Tc99m BgiswuvcgIn42z Sestamibi Owcd81eHq 33mCi Duration 15min. 15min. Img Date 10/14/2020 10/14/2020 Inj-Img Qzip79zew. 60min. Rest Admin Site:IV - Right AntecubitalAdministrator: RT Mare (R)(N) Stress Admin Site: IV - Right AntecubitalAdministrator: RT Mare (R)(N) STRESS DATA End Diast. Vol.102.0mlAv. Heart Rate69.0bpm End Syst. Vol.41.0mlCO Index BSA0.0L/min Myocardial Lgqu164.0gEject. Slhquqbz41.0% Stress Rates Pk. Fill Rate2.47EDV/secLVtime Pk. Fill 202.42msec Pk. Empty Rate3.52ESV/secLVtime Pk. Baqtg179.89msec 1/3 Pk. Fill1.21EDV/sec Stress Scores Regional WT1.00Summed WT13.00 Regional WM0.00Summed WM4.00 Study quality was good. Left Ventricular size was Normal at Rest and Stress. Lung uptake was . Left Ventricular ejection fraction is 60%. The rest and stress images show normal perfusion, normal contraction and thickening. LV Perf. Quant 17 Seg. SSS5.00 17 Seg. SRS2.00 17 Seg. SDS3.00 Stress Defect Extent (% LAD)0.00Rest Defect Extent (% LAD)0.00Rev. Defect Extent (% LAD)0.00 Stress Defect Extent (% LCX) 37.50Rest Defect Extent (% LCX)8.80Rev. Defect Extent (% LCX)18.80 Stress Defect Extent (% RCA)0.00Rest Defect Extent (% RCA)0.00Rev. Defect Extent (% RCA)0.00 Stress Defect Extent (% SUSANNE)6.50Rest Defect Extent (% SUSANNE)1.50Rev. Defect Extent (% SUSANNE)3.30 Conclusion 1. Regadenoson cardioisotope stress test did not show any evidence of ischemia or infarct. 2. Normal left ventricular systolic function with ejection fraction calculated at 60%. 3. Low risk for cardiac events. Signed by : Jagdish Jansen, Electronically Approved : 10/14/2020 13:07:52
--- NOTE | 2020-10-14 14:13 | CARD ---
MR#: [id number] Date of Study: 10/14/2020 Ordering Physician: JAGDISH JANSEN, Referring Physician: JAGDISH JANSEN, Tech: Ana Andersen [facility] APPROVED REPORT EXAM: Two-dimensional and M-mode echocardiogram with Doppler and color Doppler. Other Information Quality : FairHR: 70bpm INDICATION Cardiac Disease: CAD RISK FACTORS Hypertension Hyperlipidemia Diabetes Previous smoker, asthma 2D DIMENSIONS RVDd3.2 (2.9-3.5cm)Left Atrium(2D)3.6 (1.6-4.0cm) IVSd1.1 (0.7-1.1cm)Aortic Root(2D)2.8 (2.0-3.7cm) LVDd5.5 (3.9-5.9cm)LVOT Diameter2.0 (1.8-2.4cm) PWd1.1 (0.7-1.1cm)LVDs2.8 (2.5-4.0cm) FS (%) 49.1 %SV117.1 ml LVEF(%)79.9 (>50%) Aortic Valve AoV Peak Tomas.274.0cm/sAoV VTI57.6cm AO Peak GR.30.0mmHgLVOT Peak Tomas.172.4cm/s LVOT VTI 36.36cmAO Mean GR.15mmHg AGUEDA (VMAX)1.65fy5RDN (VTI)1.91cm2 Mitral Valve MV E Aqmqrufp504.4cm/sMV DECEL QABB190gl MV A Eyyqrbuy03.5cm/sE/A Ratio1.1 Pulmonary Valve PV Peak Nbgemywl186.4cm/sPV Peak Grad.5mmHg Tricuspid Valve TR P. Xvzcgdxg715rk/sRAP FKWUDGVB1lrAt TR Peak Gr.24rdLdZSIA80unEp Pulmonary Vein S1 Zrixfwmy45.2cm/sD2 Sngdneoq90.6cm/s LEFT VENTRICLE The left ventricle is normal size. There is mild concentric left ventricular hypertrophy. The left ve ntricular systolic function is normal. The Ejection Fraction is 55-60%. There is normal LV segmental wall motion. Transmitral Doppler flow pattern is Grade II-pseudonormal filling dynamics. RIGHT VENTRICLE The right ventricle is normal size. There is normal right ventricular wall thickness. The right ventr icular systolic function is normal. ATRIA The left atrium size is normal. The right atrium size is normal. The interatrial septum is intact wit h no evidence for an atrial septal defect or patent foramen ovale as noted on 2-D or Doppler imaging. AORTIC VALVE The aortic valve is thickened but opens well. Doppler and Color Flow revealed no significant aortic r egurgitation. There is no significant aortic valvular stenosis. Calculated aortic valve area is 1.9 c m2 with maximum pressure gradient of 30 mmHg and mean pressure gradient of 15 mmHg. MITRAL VALVE The mitral valve is normal in structure and function. There is no evidence of mitral valve prolapse. There is no mitral valve stenosis. Doppler and Color-flow revealed trace mitral regurgitation. TRICUSPID VALVE The tricuspid valve is normal in structure and function. Doppler and Color Flow revealed trace tricus pid regurgitation with an estimated PAP of 35 mmHg. There is no tricuspid valve stenosis. PULMONIC VALVE The pulmonic valve is not well visualized. Doppler and Color Flow revealed trace pulmonic valvular re gurgitation. GREAT VESSELS The aortic root is normal in size. The ascending aorta is normal in size. The IVC was not visualized. PERICARDIAL EFFUSION There is no evidence of significant pericardial effusion. Critical Notification Critical Value: No <Conclusion> The left ventricular systolic function is normal. The Ejection Fraction is 55-60%. There is normal LV segmental wall motion. Transmitral Doppler flow pattern is Grade II-pseudonormal filling dynamics. Trace mitral regurgitation. Trace tricuspid regurgitation with an estimated PAP of 35 mmHg. There is no evidence of significant pericardial effusion. Signed by : Jagdish Jansen, Electronically Approved : 10/14/2020 14:12:50
--- NOTE | 2020-10-14 17:16 | RAD ---
MR#: [id number] Date of Study: 10/14/2020 Ordering Physician: JAGDISH MADDEN, Referring Physician: JAGDISH MADDEN, Tech: Tiffanie Spain RVT, PELON APPROVED REPORT Patient Location: OUT-PATIENT Indications Claudication: PAD Grayscale images demonstrate mild diffuse atherosclerosis. Spectral waveforms and color Doppler are mostly triphasic and biphasic throughout the lower extremity arterial vessels. No significant above- knee disease is noted. On the right side there is likely moderate to severe diffuse disease involvin g the anterior tibial artery with robust two-vessel runoff in the posterior tibial and peroneal vesse ls. On the left side the posterior tibial, peroneal and anterior tibial vessels are grossly unremark able. Risk Factors Hypertension TIA/CVA History Surgery/Intervention Stent : VELOCITY AND DOPPLER WAVEFORM ANALYSIS RIGHT cm/secWaveformSeverity LEFT cm/secWaveform Severity pCFA 163.8TriphasicpCFA 185.1Triphasic Prof Fem Art. 56.0TriphasicProf Fem Art. 55.0Triphasic Fem Art Prox. 97.2TriphasicFem Art Prox. 84.7Triphasic Fem Art Mid. 64.2TriphasicFem Art Mid. 161.0Triphasic Fem Art Dist. 102.2TriphasicFem Art Dist. 67.1Triphasic Pop Art(Fossa) 65.7TriphasicPop Art(AK) 78.1Triphasic DENTAL OFFICER Prox. 73.1TriphasicPTA Prox. 88.5Triphasic DENTAL OFFICER Dist. 114.2TriphasicPTA Dist. 78.1Triphasic Per Art Prox. 46.3TriphasicPer Art Prox. 75.2Triphasic DAVI Prox. 27.5TriphasicATA Prox. 32.6Biphasic DPA 17BiphasicDPA 29Triphasic Critical Notification Critical Value: No <Conclusion> 1. No significant lower extremity arterial disease with two-vessel runoff on the right and three-ves miguel runoff on the left. Signed by : Conor Scott, Electronically Approved : 10/14/2020 17:15:59
== END ==
LOC: NM 07:27
PROVIDERS: ATTEND Internal Medicine Cardiovascular Disease
DX: I25.10 Atherosclerotic heart disease of native coronary artery without angina pectoris (principal); K68.11 Postprocedural retroperitoneal abscess; I11.9 Hypertensive heart disease without heart failure
CPT/HCPCS: 78452; 93017; 93306; 93925; A9500; J2785

== ENCOUNTER → 2021-01-13 | Outpatient (CLI) | payer OTHER ==
[2019-12-24 10:07] VITALS: BP 111/73
[~2021-01-13] MED LIST changes: -REGADENOSON 0.4 MG/5 ML DISP.SYRIN. IV ONE
--- NOTE | 2021-01-13 14:09 | RAD ---
EXAM: Lumbar spine, 3 views. HISTORY: Pain. COMPARISON: None. FINDINGS: 3 views of the lumbar spine are obtained. There is no significant listhesis. The vertebral bodies are normal in height. There is mild multilevel endplate remodeling. There is a chronic mild an terior wedge deformity of T11. There is facet arthropathy at the lower lumbar levels. There are bilat eral common iliac stents. IMPRESSION: 1. Multilevel degenerative change, primarily at the lower lumbar levels. 2. No acute osseous finding. Electronically signed by: Olivia Galindo MD (01/13/2021 2:06 PM) [id number]
== END ==
LOC: PMG 13:17
PROVIDERS: ATTEND Family Medicine
DX: M47.816 Spondylosis without myelopathy or radiculopathy, lumbar region (principal)
CPT/HCPCS: 72100